=== PATIENT | male | born 1945 | race Caucasian/White ===

== ENCOUNTER 2022-03-09 09:40 | Outpatient (REF) | payer MEDICARE, SELFPAY ==
--- NOTE | ~2022-03-09 | XR_ITS ---
EXAMINATION: XR RIBS, LEFT CLINICAL INFORMATION: Pleurodynia. COMPARISON: None TECHNIQUE: 3 views of the left ribs were obtained. Chest one view FINDINGS: LUNGS: The lungs are well-expanded and clear of acute pneumonic process. There is platelike atelectasis left midlung. The heart size and pulmonary vascularity is normal. There is minimal blunting of the left CP angle. LEFT RIBS: Multiple views of left ribs reveal no visible fracture or bony abnormality. There is an old healed fracture with callus formation left lateral 10th rib. XR/XR ribs LT min 3V w CXR1V IMPRESSION: Platelike atelectasis left midlung with minimal blunting of left CP angle. There is an old healed fracture left lateral 10th rib. No visible acute fracture or bony abnormality seen.
== END 2022-03-09 09:41 | disposition home or self-care (01) ==
LOC: HO.HMGCX 09:40
PROVIDERS: PCP Internal Medicine; Visit Provider Nurse Practitioner Family
DX: R07.81 Pleurodynia (principal); W10.8XXA Fall (on) (from) other stairs and steps, initial encounter
CPT/HCPCS: 71101

== ENCOUNTER 2022-09-01 09:59 | Emergency (ER) | payer MEDICARE, SELFPAY ==
--- NOTE | ~2022-09-01 | CT_ITS ---
EXAMINATION: CT ANGIOGRAM OF THE CHEST WITH AND WITHOUT CONTRAST (CT PULMONARY ANGIOGRAM FOR PE) CLINICAL INFORMATION: Reason for Exam pt c leg swelling and off blood thinner's COMPARISON: Radiograph 03/09/2022 TECHNIQUE: Prior to contrast administration, noncontrast localization images were obtained. Subsequently, multidetector volumetric imaging was performed from the thoracic inlet to below the diaphragms following the administration of 65 mL Omnipaque 350 intravenous contrast. No contrast reaction reported Sagittal, coronal, and MIP oblique sagittal reformatted images were obtained on the CT workstation, uploaded to PACS, and reviewed. This CT examination was performed using dose optimization techniques as appropriate, variously including the following: *Automated exposure control *Adjustment of mA and/or kV according to patient size (this includes techniques or standardized protocols for targeted exams where dose is matched to indication/reason for exam; i.e. extremities or head) *Use of iterative reconstruction technique Total exam dose-length product 1441 mGy-cm in conjunction with head and cervical spine FINDINGS: QUALITY OF STUDY/CONTRAST BOLUS: Satisfactory. PULMONARY ARTERIES: No central or segmental pulmonary emboli. THORACIC AORTA: No aneurysm or dissection. Aortic valvular hardware. LUNG: The central airways are patent. Linear bandlike atelectasis in the left upper and lower lobes. No dense consolidation. PLEURA: No pleural effusion or pneumothorax. MEDIASTINUM: Enlarged heart size. Atrial appendage clip. Coronary artery calcifications. No pericardial effusion. No hilar or mediastinal lymphadenopathy. No evidence of septal bowing or right heart strain. CHEST WALL/AXILLA: No axillary or internal mammary lymphadenopathy. OSSEOUS STRUCTURES: No acute or suspicious osseous abnormality. Degenerative changes throughout the spine. Status post median sternotomy. UPPER ABDOMEN: Partially visualized simple cyst at the upper pole of the right kidney for which no specific follow-up is recommended. There is a cyst which appears somewhat exophytic from the right lobe of the liver posteriorly. This appears simple. No reflux of contrast into the hepatic veins to suggest elevated right heart pressures. CT/CT angio chest PE protocol IMPRESSION: No pulmonary embolism or other acute intrathoracic abnormality. VTE: negative
--- NOTE | ~2022-09-01 | US_ITS ---
EXAMINATION: US VENOUS ULTRASOUND WITH DOPPLER LOWER EXTREMITY, BILATERAL CLINICAL INFORMATION: Swelling COMPARISON: None TECHNIQUE: Ultrasound of the deep veins is performed from the hip to the calf with compression sonography and color and pulse Doppler assessment. Spectral analysis with color-flow imaging is performed. FINDINGS: RIGHT: There is normal venous compression and respiratory variation and augmented flow. The visualized common femoral vein, superficial femoral vein, profunda femoral vein, popliteal vein, and the trifurcation region shows no evidence of deep venous thrombosis. There is no significant popliteal fossa cyst. LEFT: There is echogenic material in the mid posterior tibial vein compatible with thrombosis. At and above the knee the popliteal vein, femoral vein are patent. US/US venous duplex LE BI IMPRESSION: Positive DVT. Occlusive thrombus found in the mid left posterior tibial vein. (Referring physician staff is being called, to be alerted of the above findings and recommendations.) DC
--- NOTE | ~2022-09-01 | CT_ITS ---
EXAMINATION: NONCONTRAST HEAD CT NONCONTRAST CERVICAL SPINE CT INDICATION INFORMATION: Fall COMPARISON: None TECHNIQUE: Separate noncontrast CT examinations of the head and cervical spine were performed. Coronal and sagittal images were created for each examination at the technologist workstation. This CT examination was performed using dose optimization techniques as appropriate, variously including the following: *Automated exposure control *Adjustment of mA and/or kV according to patient size (this includes techniques or standardized protocols for targeted exams where dose is matched to indication/reason for exam; i.e. extremities or head) *Use of iterative reconstruction technique DLP: 1441 mGy-cm, in conjunction with the chest CT. FINDINGS: Head: There is no evidence of acute intracranial hemorrhage or territorial infarction. No abnormal mass effect or midline shift is seen. Marcial to white matter differentiation is well preserved. No extra-axial fluid collections are identified. No hydrocephalus. Proportional prominence of the ventricles and sulcal spaces is consistent with mild volume loss. There is no abnormal attenuation within the brain parenchyma. No acute osseous or soft tissue abnormality. The mastoid air cells and visualized portions of the paranasal sinuses are well aerated. Cervical spine: Slight retrolisthesis of C3 on C4 and C4 on C5, appearing degenerative. There is anatomic alignment of the vertebral bodies and posterior elements. The atlantoaxial and atlantooccipital articulations are intact. Vertebral body heights are maintained. There is multilevel intervertebral disc space narrowing with endplate osteophyte formation and facet arthropathy. No evidence of acute fracture. No prevertebral soft tissue swelling. Visualized portions of the lung apices are unremarkable. The thyroid gland is unremarkable. CT/CT cervical spine wo IV con IMPRESSION: 1. No acute intracranial finding. 2. No fracture or malalignment of the cervical spine. Moderate degenerative changes.
[2022-09-01 10:00] VITALS: BP 158/83; PULSE 94; RESP 18; TEMP 36.9; O2SAT 94; BMI 25.0
--- NOTE | 2022-09-01 10:19 | ECG_ITS ---
Test Reason : leg swelling Blood Pressure : / mmHG Vent. Rate : 075 BPM Atrial Rate : 000 BPM P-R Int : 000 ms QRS Dur : 088 ms QT Int : 368 ms P-R-T Axes : 000 -20 051 degrees QTc Int : 410 ms Atrial fibrillation Left axis deviation Abnormal ECG No previous ECGs available Referred By: Beatris Tate Electronically Signed By:AMANDA CRUZ MD
--- NOTE | 2022-09-01 10:47 | ED.SKABFB ---
HPI - Skin/Abscess/Foreign Bdy General Chief complaint: Skin/Abscess/Foreign Body Stated complaint: fall 08/31/22 cut on R leg Time Seen by Provider: 09/01/22 10:11 Source: patient Mode of arrival: ambulatory Limitations: other (Poor historian) History of Present Illness HPI narrative: Pt is a 77 year old male with a past medical history of afib s/p watchman procedure, CAD s/p CABG, s/p prosthetic AVR, HTN, HLD, and TIA who presents to the ED for evaluation of skin tears s/p fall. He states that last night around 1800 he was walking near his front door, tripped over the door draft guard, and hit his right elbow and leg on the door frame causing skin tears. He denies any head strike, LOC, or symptoms prior to the fall. He put gauzes on the tears when the initial injury occurred. According to the triage note, he went to urgent care this morning for his injuries and was referred here for possible debridement. He denies any BARRETT, pre-syncope/syncope, dizziness, CP, SOB, abdominal pain, N/V/D, urinary symptoms, calf pain, recent travel, recent illness. He states he was previously on blood thinners however states he has been off of them for the last 2 weeks. Pt is a poor historian, he has difficulty recalling what his previous cardiac history entailed and was not forthcoming about his trip to urgent care this morning or the extent of his injuries. complaint: other (skin tear) Onset (ago): day(s) (1) Tetanus up to date: yes Location: RUE and RLE Relieving factors: none Exacerbating factors: none Context: none Associated symptoms: denies other symptoms Treatments prior to arrival: bandages Related Data Home Medications Medication Instructions Recorded Confirmed allopurinol 100 mg tablet 200 mg PO DAILY 03/09/22 furosemide 20 mg tablet 20 mg PO BID 03/09/22 metoprolol tartrate 25 mg tablet 25 mg PO BID 03/09/22 tamsulosin 0.4 mg capsule 0.4 mg PO DAILY 03/09/22 Previous Rx's Medication Instructions Recorded apixaban 5 mg tablet (Eliquis) 5 mg PO BID #90 tabs 09/01/22 cephalexin 500 mg capsule 500 mg PO Q6H 10 days #40 caps 09/01/22 doxycycline monohydrate 100 mg 100 mg PO BID 10 days #20 tabs 09/01/22 tablet Allergies Allergy/AdvReac Type Severity Reaction Status Date / Time No Known Allergies Allergy Unverified 09/01/22 08:57 Review of Systems Review of Systems: Constitutional : + fall. Denies history of same, Denies any other sites involved, Denies IV drug use, Denies history of MRSA, Denies swollen glands, Denies injury, Denies Fever, Denies Chills, Denies Systemic symptoms Cardiovascular : No Chest Pain, No SOB Respiratory : No Dyspnea Gastrointestinal : No abdominal pain Musculoskeletal : No Joint Swelling Skin : + skin tear, No Foreign bodies, No spreading rash, Denies bites, Denies discharge, Neuro : No Weakness, No Numbness/tingling Psych : No SI/HI/thoughts of self injury Yes all other systems are reviewed and are negative [facility] Past Medical History Attestation statement: The following information was validated with the patient. Source: old records reviewed, obtained from family and nursing notes reviewed Social History Social History Advance Directives: No Advance Directives Information Provided: No Physical Exam Vital Signs: Vital Signs: Last Vital Signs Temp 98.5 F 09/01/22 10:00 Pulse 94 09/01/22 10:00 Resp 18 09/01/22 10:00 BP 158/83 H 09/01/22 10:00 Pulse Ox 94 09/01/22 10:00 O2 Del Method 09/01/22 10:00 BMI result Body Mass Index 25.0 vital signs have been reviewed as normal and appeared to be correct. Blood pressure normal. Heart rate normal. Respiration rate normal. Temperature normal. Oxygen saturation normal. Appearance: Alert. Oriented X3. No acute distress. Head: Normal external exam. Normocephalic. Atraumatic. No Loaiza signs noted. No raccoon eyes noted. Eyes: PERRLA. EOMI. Conjunctiva and sclera normal. Eyelids normal. ENT: Hearing normal. Normal voice. No trismus noted. No drooling noted. No muffled voice noted. Neck: Normal inspection. Neck supple. No signs of trauma noted. CVS: Afib rhythm, normal rate. Presence of a systolic murmur. No rubs/gallops. Respiratory: No respiratory distress. Painless inspiration. Breath sounds normal. No wheezes/rales/rhonchi noted. Chest nontender. No crepitus is noted. No accessory muscle usage noted or decreased air movement noted. No signs of trauma. Abdomen: Soft and nontender. Nondistended. No guarding. No rigidity. Bowel sounds normal in all 4 quadrants. No distention noted. No visible injury noted. Back: Full range of motion noted. Skin: A 15cm skin tear noted on the anterior aspect of the distal RLE with surrounding erythema and ecchymosis, non-draining. Skin tear overlying the posterior elbow joint without drainage, bleeding, or erythema. Skin warm and dry. Normal skin color. Extremities: 2+ bilateral pitting edema noted. R calf tender to palpation. L calf nontender. Extremities exhibit normal range of motion and nontender. Neuro: Oriented X 3. Normal steady gait. No focal neuro deficits noted. Vascular: +2 radial pulses/+ 2 distal pedal pulses/+2 dorsalis pedis b/l. Course Course Course Narrative: 10:20am - Pt is a 77 year old male with a past medical history of afib s/p watchman procedure, CAD s/p CABG, s/p prosthetic AVR, HTN, HLD, and TIA who presents to the ED for evaluation of skin tears s/p fall. He states that last night around 1800 he was walking near his front door, tripped over the door draft guard, and hit his right elbow and leg on the door frame causing skin tears. He denies any head strike, LOC, or symptoms prior to the fall. Pt is a poor historian regarding his past medical hx and his symptoms/prior treatment to his skin tears. VSS. A 15cm skin tear noted on the anterior aspect of the distal RLE with surrounding erythema and ecchymosis, non-draining. Skin tear overlying the posterior elbow joint without drainage, bleeding, or erythema. Upon palpating the right calf/LE, the patient expressed that he had pain and nearly jumped off the exam table. The left calf is nontender. Pitting edema noted bilaterally, pt states this is normal for him and he is working on it. Pt in Afib, normal rate with the presence of a systolic murmur. Lungs clear. 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 Reports from [facility] Cardiology were obtained and his PMHx has been filled into the HPI. Per the reports, he has had a CABG, bioprosthetic AVR, watchman procedure and has been off of his Coumadin since 04/2022. Last ECHO 05/14/2022. He is also on torsemide which has recently been decreased to 60mg QD. Plan: -Clean skin tears and wrap with Xeroform and nonadherent dressing. -Exam and PMHx concerning for DVT, will order U/S of bilateral lower extremities. Will order CTA if U/S is positive. -Order CBC, CMP, BNP, PT/INR, Mg, troponin, CK, EKG, CT of head/neck for full fall workup and will reassess plan. Reevaluation(s) Reevaluation #1: -CBC shows anemia with H/H of 11.5/35.5, plts 148, otherwise WNL. -CMP shows CO2 of 31, BUN of 21, otherwise WNL. -BNP mildly elevated at 242. -PT/INR 12.7/1.1. - troponin 14.6 -EKG shows afib at 75 bpm. -U/S positive for DVT, Occlusive thrombus found in the mid left posterior tibial vein. Added CTA of chest to r/o PE. -Imaging, troponin, CK pending. Added blood cx x2, lactic acid. Time: 12:17 Reevaluation #2: - CTA of chest negative for PE. - CT scan of brain/cervical spine negative for any acute processes noted - repeat troponin negative delta. - blood cultures and lactic acid were added. - pending wound consult. Time: 14:28 Reevaluation #3: - lactic acid within normal limits. - I spoke to Dr. Delgado and she recommended Xeroform with not adherent dressing and gentle compression with Gabino wrap. He will follow-up with him as an outpatient basis. - I also consulted with Cardiology and they reported the patient could be started on p.o. blood thinners for his DVT to his left lower extremity therefore will start on Eliquis. - therefore at this time will DC home with antibiotics for possible cellulitis infection to the skin tear to his right lower extremity. He also has a skin tear to the right elbow. Will DC home with Eliquis. Instructions to continue taking metoprolol as patient's atrial fibrillation is rate controlled at this time and instructions to follow-up with wound clinic/PCP and Cardiology along with vascular surgery patient understands. at bedside understands. And to return if any new or worsening symptoms. Time: 15:43 Medications Administered Discontinued Medications Generic Name Dose Route Start Last Admin Trade Name Estevanq PRN Reason Stop Dose Admin Apixaban 10 mg 09/01/22 14:24 09/01/22 15:34 Apixaban 5 Mg Tablet PO 09/01/22 14:25 10 mg ONCE ONE Administration Cephalexin HCl 500 mg 09/01/22 15:09 09/01/22 15:35 Cephalexin 500 Mg Capsule PO 09/01/22 15:10 500 mg ONCE ONE Administration Doxycycline Monohydrate 100 mg 09/01/22 15:09 09/01/22 15:35 Doxycycline Monohydrate 100 Mg Capsule PO 09/01/22 15:10 100 mg ONCE ONE Administration Iohexol 100 ml 09/01/22 11:40 09/01/22 11:40 Iohexol 350 Mg/Ml 100 Ml Infus..Btl IV 09/01/22 11:41 65 ml ONCE ONE Administration MDM - Skin/Abscess/Foreign Bdy Medical Records Attestation: I reviewed the patient's medical records. Lab Data Attestation: I reviewed the patient's lab results. Result diagrams: 09/01/22 10:46 09/01/22 10:46 Labs: Lab Results 09/01/22 09/01/22 09/01/22 Range/Units 10:46 10:46 10:46 WBC 5.4 (4.8-10.8) X10*3/uL RBC 3.69 L (4.60-5.80) X10*6/uL Hgb 11.5 L (14.0-18.0) g/dl Hct 35.3 L (42.0-52.0) % MCV 95.7 (80.0-98.0) fL MCH 31.2 (27.0-33.0) pg MCHC 32.6 (31.0-36.0) g/dl RDW 16.3 H (11.0-16.0) % Plt Count 148 L (160-400) X10*3/uL MPV 10.9 (9.4-12.4) fL Immature Gran % (Auto) 0.4 (0.0-0.4) % Neut % (Auto) 66.6 (45-73) % Lymph % (Auto) 20.9 (20-40) % [place] % (Auto) 10.3 (2-11) % Eos % (Auto) 1.1 (0-4) % Baso % (Auto) 0.7 (0-2) % Lymph # (Auto) 1.1 L (1.2-4.9) X10*3/uL [place] # (Auto) 0.6 (0.1-1.2) X10*3/uL Eos # (Auto) 0.1 (0.0-0.4) X10*3/uL Baso # (Auto) 0.0 (0.0-0.2) X10*3/uL Abs Immat Gran (auto) 0.02 (0.00-0.03) X10*3/uL Absolute Neuts (auto) 3.6 (2.0-8.3) x10*3/uL Absolute Nucleated RBC 0.000 (0.0-0.012) X10*3/uL Nucleated RBC % (auto) 0.0 (0.0-0.2) /100WBC PT 12.7 (10.0-13.1) SEC INR 1.1 (0.9-1.1) Sodium 142 (135-145) mmol/L Potassium 4.1 (3.3-5.1) mmol/L Chloride 102 (96-108) mmol/L Carbon Dioxide 31 H (22-29) mmol/L Anion Gap 13 (12-20) BUN 21 H (9-16) mg/dL Creatinine 1.01 (0.5-1.4) mg/dL Estim Creat Clear Calc 58.1 Estimated GFR > 60 Random Glucose 95 (60-115) mg/dL Lactic Acid (0.5-2.0) mmol/L Calcium 9.5 (8.4-10.2) mg/dL Magnesium 2.2 (1.6-2.6) mg/dL Total Bilirubin 0.6 (0.0-1.0) mg/dL AST 22 (5-37) U/L ALT 12 (0-40) U/L Alkaline Phosphatase 82 (39-117) U/L Total Creatine Kinase 66 (38-174) U/L Troponin I High Sens (<3.5-35.0) ng/L B-Natriuretic Peptide (<100) pg/mL Total Protein 6.9 (6.5-8.0) g/dL Albumin 4.1 (3.5-5.0) g/dL COVID-19 (JOHN) (Negative) COVID-19 Clin Com 09/01/22 09/01/22 09/01/22 Range/Units 10:46 10:46 12:34 WBC (4.8-10.8) X10*3/uL RBC (4.60-5.80) X10*6/uL Hgb (14.0-18.0) g/dl Hct (42.0-52.0) % MCV (80.0-98.0) fL MCH (27.0-33.0) pg MCHC (31.0-36.0) g/dl RDW (11.0-16.0) % Plt Count (160-400) X10*3/uL MPV (9.4-12.4) fL Immature Gran % (Auto) (0.0-0.4) % Neut % (Auto) (45-73) % Lymph % (Auto) (20-40) % [place] % (Auto) (2-11) % Eos % (Auto) (0-4) % Baso % (Auto) (0-2) % Lymph # (Auto) (1.2-4.9) X10*3/uL [place] # (Auto) (0.1-1.2) X10*3/uL Eos # (Auto) (0.0-0.4) X10*3/uL Baso # (Auto) (0.0-0.2) X10*3/uL Abs Immat Gran (auto) (0.00-0.03) X10*3/uL Absolute Neuts (auto) (2.0-8.3) x10*3/uL Absolute Nucleated RBC (0.0-0.012) X10*3/uL Nucleated RBC % (auto) (0.0-0.2) /100WBC PT (10.0-13.1) SEC INR (0.9-1.1) Sodium (135-145) mmol/L Potassium (3.3-5.1) mmol/L Chloride (96-108) mmol/L Carbon Dioxide (22-29) mmol/L Anion Gap (12-20) BUN (9-16) mg/dL Creatinine (0.5-1.4) mg/dL Estim Creat Clear Calc Estimated GFR Random Glucose (60-115) mg/dL Lactic Acid 0.8 (0.5-2.0) mmol/L Calcium (8.4-10.2) mg/dL Magnesium (1.6-2.6) mg/dL Total Bilirubin (0.0-1.0) mg/dL AST (5-37) U/L ALT (0-40) U/L Alkaline Phosphatase (39-117) U/L Total Creatine Kinase (38-174) U/L Troponin I High Sens 14.6 (<3.5-35.0) ng/L B-Natriuretic Peptide 242 H (<100) pg/mL Total Protein (6.5-8.0) g/dL Albumin (3.5-5.0) g/dL COVID-19 (JOHN) (Negative) COVID-19 Clin Com 09/01/22 09/01/22 Range/Units 12:34 13:48 WBC (4.8-10.8) X10*3/uL RBC (4.60-5.80) X10*6/uL Hgb (14.0-18.0) g/dl Hct (42.0-52.0) % MCV (80.0-98.0) fL MCH (27.0-33.0) pg MCHC (31.0-36.0) g/dl RDW (11.0-16.0) % Plt Count (160-400) X10*3/uL MPV (9.4-12.4) fL Immature Gran % (Auto) (0.0-0.4) % Neut % (Auto) (45-73) % Lymph % (Auto) (20-40) % [place] % (Auto) (2-11) % Eos % (Auto) (0-4) % Baso % (Auto) (0-2) % Lymph # (Auto) (1.2-4.9) X10*3/uL [place] # (Auto) (0.1-1.2) X10*3/uL Eos # (Auto) (0.0-0.4) X10*3/uL Baso # (Auto) (0.0-0.2) X10*3/uL Abs Immat Gran (auto) (0.00-0.03) X10*3/uL Absolute Neuts (auto) (2.0-8.3) x10*3/uL Absolute Nucleated RBC (0.0-0.012) X10*3/uL Nucleated RBC % (auto) (0.0-0.2) /100WBC PT (10.0-13.1) SEC INR (0.9-1.1) Sodium (135-145) mmol/L Potassium (3.3-5.1) mmol/L Chloride (96-108) mmol/L Carbon Dioxide (22-29) mmol/L Anion Gap (12-20) BUN (9-16) mg/dL Creatinine (0.5-1.4) mg/dL Estim Creat Clear Calc Estimated GFR Random Glucose (60-115) mg/dL Lactic Acid (0.5-2.0) mmol/L Calcium (8.4-10.2) mg/dL Magnesium (1.6-2.6) mg/dL Total Bilirubin (0.0-1.0) mg/dL AST (5-37) U/L ALT (0-40) U/L Alkaline Phosphatase (39-117) U/L Total Creatine Kinase (38-174) U/L Troponin I High Sens 14.6 (<3.5-35.0) ng/L B-Natriuretic Peptide (<100) pg/mL Total Protein (6.5-8.0) g/dL Albumin (3.5-5.0) g/dL COVID-19 (JOHN) Negative (Negative) COVID-19 Clin Com See Note Imaging Data CT scan of brain/cervical spine without contrast: Attestation: I personally reviewed and interpreted this imaging study as follows: Radiologist's impression: FINDINGS: Head: There is no evidence of acute intracranial hemorrhage or territorial infarction. No abnormal mass effect or midline shift is seen. Marcial to white matter differentiation is well preserved. No extra-axial fluid collections are identified. No hydrocephalus. Proportional prominence of the ventricles and sulcal spaces is consistent with mild volume loss. There is no abnormal attenuation within the brain parenchyma. No acute osseous or soft tissue abnormality. The mastoid air cells and visualized portions of the paranasal sinuses are well aerated. Cervical spine: Slight retrolisthesis of C3 on C4 and C4 on C5, appearing degenerative. There is anatomic alignment of the vertebral bodies and posterior elements. The atlantoaxial and atlantooccipital articulations are intact. Vertebral body heights are maintained. There is multilevel intervertebral disc space narrowing with endplate osteophyte formation and facet arthropathy. No evidence of acute fracture. No prevertebral soft tissue swelling. Visualized portions of the lung apices are unremarkable. The thyroid gland is unremarkable. CT/CT head/brain wo IV con IMPRESSION: 1.? No acute intracranial finding. 2.? No fracture or malalignment of the cervical spine. Moderate degenerative changes. CTa of chest for PE: Attestation: I personally reviewed and interpreted this imaging study as follows: Radiologist's impression: FINDINGS: QUALITY OF STUDY/CONTRAST BOLUS: Satisfactory. PULMONARY ARTERIES: No central or segmental pulmonary emboli.? THORACIC AORTA: No aneurysm or dissection. Aortic valvular hardware. LUNG: The central airways are patent. Linear bandlike atelectasis in the left upper and lower lobes. No dense consolidation. PLEURA: No pleural effusion or pneumothorax. MEDIASTINUM: Enlarged heart size. Atrial appendage clip. Coronary artery calcifications. No pericardial effusion.? No hilar or mediastinal lymphadenopathy.? No evidence of septal bowing or right heart strain. CHEST WALL/AXILLA: No axillary or internal mammary lymphadenopathy. OSSEOUS STRUCTURES: No acute or suspicious osseous abnormality. Degenerative changes throughout the spine. Status post median sternotomy. UPPER ABDOMEN: Partially visualized simple cyst at the upper pole of the right kidney for which no specific follow-up is recommended. There is a cyst which appears somewhat exophytic from the right lobe of the liver posteriorly. This appears simple.? No reflux of contrast into the hepatic veins to suggest elevated right heart pressures. CT/CT angio chest PE protocol IMPRESSION: No pulmonary embolism or other acute intrathoracic abnormality. ? ? VTE: negative Venous duplex ultrasound of bilateral lower extremity: Attestation: I personally reviewed and interpreted this imaging study as follows: Radiologist's impression: FINDINGS: RIGHT: There is normal venous compression and respiratory variation and augmented flow. The visualized common femoral vein, superficial femoral vein, profunda femoral vein, popliteal vein, and the trifurcation region shows no evidence of deep venous thrombosis. ? There is no significant popliteal fossa cyst. LEFT: There is echogenic material in the mid posterior tibial vein compatible with thrombosis. At and above the knee the popliteal vein, femoral vein are patent. US/US venous duplex LE BI IMPRESSION: Positive DVT. ? Occlusive thrombus found in the mid left posterior tibial vein. ? (Referring physician staff is being called, to be alerted of the above findings and recommendations.) DC ECG Data Attestation: I personally reviewed and interpreted this ECG as follows: ECG interpretation date: 09/01/22 ECG interpretation time: 10:20 Interpretation: Atrial fibrillation with a ventricular rate of 75 no acute ischemic change are noted. Critical Care Time Critical Care Time Critical Care Time: Yes Total Critical Care Time: 60 Attestation: I personally attest to this time spent taking care of the patient Discharge Plan Discharge Clinical Impression: Skin tear, Acute deep vein thrombosis (DVT) of left lower extremity, Atrial fibrillation Patient Disposition: Home, Self-Care Instructions: A-fib (Atrial Fibrillation) (ED), Deep Vein Thrombosis (ED), Laceration Without Closure (ED), Blood Thinners (ED) Prescriptions: New doxycycline monohydrate 100 mg tablet 100 mg PO BID 10 Days Qty: 20 0RF cephalexin 500 mg capsule 500 mg PO Q6H 10 Days Qty: 40 0RF Eliquis 5 mg tablet 5 mg PO BID Qty: 90 0RF Rx Instructions: Patient should take 10 mg p.o. b.i.d. x7 days for DVT then 5 mg b.i.d. until instructed by carpet layer helper No Action allopurinol 100 mg tablet 200 mg PO DAILY furosemide 20 mg tablet 20 mg PO BID tamsulosin 0.4 mg capsule 0.4 mg PO DAILY metoprolol tartrate 25 mg tablet 25 mg PO BID Referrals: Rocco Vicente III, MD [Primary Care Provider] - 1 day Keenan Roe MD [Physician] - 1 day Sujey Angel PA [Physician Sr. Director] - 1 day
[2022-09-01 10:52] LABS: MANUAL DIFF FLAG NO
[2022-09-01 10:54] LABS: Basophils Percent Auto 0.7 % (0-2); Eosinophils Absolute Auto 0.1 X10*3/uL (0.0-0.4); Eosinophils Percent Auto 1.1 % (0-4); Hematocrit 35.3 % (42.0-52.0); Hemoglobin 11.5 g/dl (14.0-18.0); Imm Gran Abs Auto 0.02 X10*3/uL (0.00-0.03); Imm Gran Pct Auto 0.4 % (0.0-0.4); Lymphocytes Absolute Auto 1.1 X10*3/uL (1.2-4.9); Lymphocytes Percent Auto 20.9 % (20-40); Mean Corpuscular HGB Conc 32.6 g/dl (31.0-36.0); Mean Corpuscular Hemoglobin 31.2 pg (27.0-33.0); Mean Corpuscular Volume 95.7 fL (80.0-98.0); Mean Platelet Volume 10.9 fL (9.4-12.4); Monocytes Absolute Auto 0.6 X10*3/uL (0.1-1.2); Monocytes Percent Auto 10.3 % (2-11); Neutrophils Absolute Auto 3.6 x10*3/uL (2.0-8.3); Neutrophils Percent Auto 66.6 % (45-73); Platelet Count 148 X10*3/uL (160-400); Red Blood Count 3.69 X10*6/uL (4.60-5.80); Red Cell Distribution Width 16.3 % (11.0-16.0); White Blood Count 5.4 X10*3/uL (4.8-10.8)
[2022-09-01 10:59] LABS: INTERNATIONAL NORM RATIO 1.1 (0.9-1.1); Prothrombin Time 12.7 SEC (10.0-13.1)
[2022-09-01 11:14] LABS: Alanine Aminotransferase 12 U/L (0-40); Albumin Level 4.1 g/dL (3.5-5.0); Alkaline Phosphatase 82 U/L (39-117); Anion Gap 13 (12-20); Aspartate Amino Transferase 22 U/L (5-37); Bilirubin Total 0.6 mg/dL (0.0-1.0); Blood Urea Nitrogen 21 mg/dL (9-16); Calcium 9.5 mg/dL (8.4-10.2); Carbon Dioxide 31 mmol/L (22-29); Chloride 102 mmol/L (96-108); Creatinine Clr Calc Pharmacy 58.1; Estimated Glomerular Filt Rate > 60; Glucose Random 95 mg/dL (60-115); Magnesium 2.2 mg/dL (1.6-2.6); Potassium 4.1 mmol/L (3.3-5.1); Sodium 142 mmol/L (135-145); Total Protein 6.9 g/dL (6.5-8.0)
[2022-09-01 11:21] LABS: B Type Natriuretic Peptide 242 pg/mL (<100)
[2022-09-01] MEDS: iohexoL 350 MG/ML 100 ML INFUS..BTL IV (11:40)
[2022-09-01 12:34] LABS: Troponin-I High Sensitivity 14.6 ng/L (<3.5-35.0)
[2022-09-01 13:05] LABS: COVID-19 Test Negative (Negative); IDNOW Serial# 16C4AD1C
[2022-09-01 13:06] LABS: Lactic Acid 0.8 mmol/L (0.5-2.0)
[2022-09-01 14:29] LABS: Troponin-I High Sensitivity 14.6 ng/L (<3.5-35.0)
[2022-09-01] MEDS: Apixaban 5 MG TABLET 10 MG PO (15:34)
[2022-09-01] MEDS: Doxycycline Monohydrate 100 MG CAPSULE PO (15:35)
[2022-09-01] MEDS: cephALEXin 500 MG CAPSULE PO (15:35)
== END 2022-09-01 16:05 | disposition home or self-care (01) ==
PROVIDERS: Physician Assistant Medical; Emergency Provider Emergency Medicine Emergency Medical Services; PCP Internal Medicine
DX: I82.442 Acute embolism and thrombosis of left tibial vein (principal); S81.811A Laceration without foreign body, right lower leg, initial encounter; W22.09XA Striking against other stationary object, initial encounter; M79.661 Pain in right lower leg; R60.0 Localized edema; I48.91 Unspecified atrial fibrillation; Y93.89 Activity, other specified; Y92.018 Other place in single-family (private) house as the place of occurrence of the external cause; Y99.9 Unspecified external cause status; Z20.822 Contact with and (suspected) exposure to COVID-19
CPT/HCPCS: 36415; 70450; 71275; 72125; 80053; 82550; 83605; 83735; 83880; 84484; 85025; 85610; 87040; 87635; 93005; 93970; 99284; Q9967

== ENCOUNTER 2022-09-06 12:39 | Outpatient (RCR) | payer MEDICARE, SELFPAY | END 2022-11-16 13:57 | disposition home or self-care (01) | LOC: HO.WCC 12:39 | PROVIDERS: PCP Internal Medicine; Visit Provider Physician Assistant | DX: I87.331 Chronic venous hypertension (idiopathic) with ulcer and inflammation of right lower extremity (principal); L97.812 Non-pressure chronic ulcer of other part of right lower leg with fat layer exposed; I48.91 Unspecified atrial fibrillation; Z79.01 Long term (current) use of anticoagulants; Z95.1 Presence of aortocoronary bypass graft; Z86.718 Personal history of other venous thrombosis and embolism; Z86.73 Personal history of transient ischemic attack (TIA), and cerebral infarction without residual deficits | CPT/HCPCS: 11042; 11045; 15271; 17250; 99212; Q4101; Q4160 ==

== ENCOUNTER 2023-01-27 08:09 | Outpatient (RCR) | payer MEDICARE, SELFPAY | END 2023-02-11 13:47 | disposition home or self-care (01) | LOC: HO.WCC 08:09 | PROVIDERS: PCP Internal Medicine; Visit Provider Surgery | DX: S51.812A Laceration without foreign body of left forearm, initial encounter (principal); S51.811A Laceration without foreign body of right forearm, initial encounter; I48.91 Unspecified atrial fibrillation; I10 Essential (primary) hypertension; Z95.1 Presence of aortocoronary bypass graft; Z86.718 Personal history of other venous thrombosis and embolism; Z79.01 Long term (current) use of anticoagulants; Z86.73 Personal history of transient ischemic attack (TIA), and cerebral infarction without residual deficits; Z79.891 Long term (current) use of opiate analgesic; Z79.899 Other long term (current) drug therapy | CPT/HCPCS: 97597; 99212 ==

== ENCOUNTER 2023-04-18 12:21 | Outpatient (REF) | payer MEDICARE, SELFPAY | END 2023-04-18 12:22 | disposition home or self-care (01) | LOC: HO.HMGCX 12:21 | PROVIDERS: PCP Internal Medicine; Visit Provider Internal Medicine | DX: M25.532 Pain in left wrist (principal) | CPT/HCPCS: 73130 ==

== ENCOUNTER 2023-07-20 07:25 | Emergency (ER) | payer MEDICARE, SELFPAY ==
--- NOTE | ~2023-07-20 | CT_ITS ---
EXAMINATION: CT CERVICAL SPINE WITHOUT CONTRAST CLINICAL INFORMATION: Mechanical fall, on anticoagulants COMPARISON: 09/01/2022 TECHNIQUE: Axial imaging with coronal and sagittal reformatted images. This CT examination was performed using dose optimization techniques as appropriate, variously including the following: *Automated exposure control *Adjustment of mA and/or kV according to patient size (this includes techniques or standardized protocols for targeted exams where dose is matched to indication/reason for exam; i.e. extremities or head) *Use of iterative reconstruction technique DLP: 307 mGy-cm FINDINGS: Degenerative changes. No acute fracture or dislocation. CT/CT cervical spine wo IV con IMPRESSION: Degenerative changes. No acute fracture or dislocation in the cervical spine. Fleischner guidelines were followed.
--- NOTE | ~2023-07-20 | CT_ITS ---
EXAMINATION: CT HEAD WITHOUT CONTRAST CLINICAL INFORMATION: Mechanical fall on anticoagulant COMPARISON: 09/01/2022 TECHNIQUE: Contiguous axial imaging was performed from the skull base to vertex without intravenous administration of contrast. This CT examination was performed using dose optimization techniques as appropriate, variously including the following: *Automated exposure control *Adjustment of mA and/or kV according to patient size (this includes techniques or standardized protocols for targeted exams where dose is matched to indication/reason for exam; i.e. extremities or head) *Use of iterative reconstruction technique DLP: 742 mGy-cm FINDINGS: Mild involutional changes noted. No intra or extra-axial fluid collection or hemorrhage, mass, or mass effect. Calvarium is intact. CT/CT head/brain wo IV con IMPRESSION: No acute intracranial pathology.
--- NOTE | 2023-07-20 07:39 | ED.GENADULT ---
HPI - General Adult General Chief complaint: Fall Stated complaint: cut arm and leg Time Seen by Provider: 07/20/23 07:39 Source: patient Mode of arrival: ambulatory Limitations: no limitations History of Present Illness HPI narrative: Patient is a 78 year old assigned male at with a history of atrial fib currently on Eliquis presenting to the emergency department today with right arm and leg skin tears. Patient states that he was working on something outside when he tripped and fell, landing on his right side, causing a skin tear to his right arm and right knee. Patient denies any head strike or loss of consciousness. Patient denies any dizziness, lightheadedness, abdominal pain, nausea, vomiting, fever, chills, blurry vision, double vision, loss of vision, chest pain, difficulty breathing, shortness of breath, back pain, night sweats, pain with urination, increased urinary frequency, increased urinary urgency, blood in his urine or stool, syncope or a near syncopal episode, bowel incontinence, bladder incontinence, bowel retention, bladder retention, or any other complaints at this time. Patient states something similar happened last year for which he had to follow with wound care. Onset (ago): minute(s) Location: right, upper extremity and lower extremity Severity: mild Severity scale (1-10): 3 Quality: aching Relieving factors: none Exacerbating factors: none Associated symptoms: denies other symptoms Treatments prior to arrival: none Related Data Home Medications Medication Instructions Recorded Confirmed allopurinol 100 mg tablet 200 mg PO DAILY 03/09/22 metoprolol tartrate 25 mg tablet 25 mg PO BID 03/09/22 04/18/23 tamsulosin 0.4 mg capsule 0.4 mg PO DAILY 03/09/22 04/18/23 furosemide 20 mg tablet 60 mg PO BID 04/18/23 04/18/23 Previous Rx's Medication Instructions Recorded apixaban 5 mg tablet (Eliquis) 5 mg PO BID #90 tabs 09/01/22 prednisone 20 mg tablet 60 mg (3 x 20 mg) PO DAILY #9 tabs 04/18/23 cephalexin 500 mg capsule 500 mg PO Q6H 7 days #28 caps 07/20/23 Allergies Allergy/AdvReac Type Severity Reaction Status Date / Time No Known Allergies Allergy Unverified 04/18/23 12:22 Review of Systems Review of Systems: Yes all other systems are reviewed and are negative Constitutional: Constitutional: Reports no additional constitutional complaints, Denies chills, Denies fever(s) and Denies night sweats Eyes: Eyes: Reports no additional eye complaints, Denies blurry vision, Denies change in vision, Denies diplopia, Denies eye discharge, Denies loss of vision and Denies eye pain ENT: Denies dizziness Cardiovascular: Cardiovascular: Reports no additional cardiovascular complaints, Denies chest pain, Denies lightheadedness, Denies Loss of Consciousness and Denies dyspnea Respiratory: Respiratory: Reports no additional respiratory complaints and Denies dyspnea Gastrointestinal: Gastrointestinal: Reports no additional gastrointestinal complaints, Denies abdominal pain, Denies melena, Denies hematochezia, Denies change in bowel habits and Denies change in stool character Genitourinary: Genitourinary: Reports no additional male genitourinary complaints, Denies hematuria, Denies oliguria, Denies difficulty urinating, Denies dysuria, Denies urinary frequency, Denies urinary hesitancy, Denies urinary incontinence and Denies urinary urgency Musculoskeletal: Musculoskeletal: Reports no additional musculoskeletal complaints, Denies numbness and Denies tingling Comments: large abrasions of the right forearm and right lower leg. No joint pain. No trouble ambulating. Neurologic: Denies dizziness, Denies loss of vision, Denies numbness and Denies tingling Psychiatric: Psychiatric: Reports no additional psychiatric complaints Endocrine: Endocrine: Reports no additional endocrine complaints Hematologic/Lymphatic: Hematologic/Lymphatic: Reports no additional hematologic/lymphatic complaints Allergic/Immunologic: Allergic/Immunologic: Reports no additional allergic/immunologic complaints PMFSH Past Medical History Attestation statement: The following information was validated with the patient. Source: old records reviewed and nursing notes reviewed Social History Social History Patient Tobacco Use Status: Former Tobacco user Physical Exam ED Vital Signs: Vital Signs - 24 hr 07/20/23 08:05 Temperature 98.1 F Pulse Rate 64 Respiratory Rate 16 Blood Pressure 156/72 H Pulse Oximetry 94 Oxygen Delivery Method Room Air BMI result Body Mass Index 29.0 Const General: cooperative, no acute distress, alert and awake Nutritional Appearance: well nourished Orientation/consciousness: patient oriented x3 Limitations: no limitations HENMT Head: Yes normal to inspection and Yes atraumatic Ears: hearing grossly normal bilaterally and external ears normal General nose exam: Normal external nose present, no nasal discharge noted and no epistaxis Face and sinus: Yes normal facial exam, No abrasion and No laceration Mouth: Normal oral and palatal mucosa present, no drooling and no muffled voice Eyes General: appearance normal, both eyes and all related structures Periorbital: periorbital findings normal Eyelids: Yes eyelids normal Conjunctivae: conjunctivae normal Pupils: Equal, round and reactive pupils present EOM: EOMs intact bilaterally Neck Neck: Yes normal visual inspection, Yes full ROM and Yes no lymphadenopathy Chest Chest palpation & inspection: normal inspection of the chest Resp Effort & Inspection: normal respiratory effort and able to speak in complete sentences GI Inspection: Yes normal to inspection Skin Other: 15cm x 7cm right lateral forearm skin tear, not actively bleeding, small skin tears on the upper/lateral right lower leg, not actively bleeding. Neuro General: patient oriented x3 and moves all extremities Cranial nerves: Yes Equal, round and reactive pupils present Cognition (Neuro): normal cognition Motor exam (neuro): 5/5 motor strength present throughout Sensory Exam: Normal double simultaneous stimulation for sensation Coordination: [id number] test normal Extrem General: Yes full ROM and Yes capillary refill normal Psych Appearance: grossly normal Mental Status: mental status grossly normal Affect: normal affect Attitude: cooperative Thought process: Normal thought process present Thought content: Normal thought content present Insight: Good insight present (Psych) Medical Decision Making Medical Decision Making MDM Narrative: Patient is a 78 year old assigned male at with a history of atrial fib on eliquis presenting to the emergency department today with skin tears to the right upper extremity and right lower extremity. Patient's physical exam was as noted in the physical exam portion of this note. Patient's head and c-spine CTs showed no acute process. I explained my physical exam findings as well as all test results to the patient and the patient's . I answered all questions asked by the patient and the patient's . Patient's right forearm wound was cleaned and dressed with non adherent and a pressure dressing. Patient's right lower extremity skin tear was repaired with steri strips and dressed with non adherent dressing. I stressed the importance of the patient taking his medication as prescribed. I stressed the importance of the patient following up with his primary care provider and the wound center. I stressed the importance of the patient returning to the emergency department immediately if his symptoms were to worsen or if he were to develop any dizziness, shortness of breath, difficulty breathing, chest pain, blurry vision, loss of vision, nausea, vomiting, abdominal pain, fever, chills, back pain, or any other complaints. Patient and the patient's verbalized agreement and understanding with this treatment plan and discharge. Differential Diagnosis Differential Diagnoses: The differential diagnosis associated with the presentation includes Skin tear Mechanical fall Independent Interpretation I performed an independent interpretation of an: CT Scan Interpretation: My interpretation is in agreement with the radiologist's impression of these imaging studies. EXAMINATION: CT HEAD WITHOUT CONTRAST CLINICAL INFORMATION: Mechanical fall on anticoagulant COMPARISON: 09/01/2022 TECHNIQUE: Contiguous axial imaging was performed from the skull base to vertex without intravenous administration of contrast. This CT examination was performed using dose optimization techniques as appropriate, variously including the following: *Automated exposure control *Adjustment of mA and/or kV according to patient size (this includes techniques or standardized protocols for targeted exams where dose is matched to indication/reason for exam; i.e. extremities or head) *Use of iterative reconstruction technique DLP: 742 mGy-cm FINDINGS: Mild involutional changes noted. No intra or extra-axial fluid collection or hemorrhage, mass, or mass effect. Calvarium is intact. CT/CT head/brain wo IV con IMPRESSION: No acute intracranial pathology. Dictated By: Keith Garcia MD Signed By: Electronically signed by Keith Garcia MD 07/20/23 0943 EXAMINATION: CT CERVICAL SPINE WITHOUT CONTRAST CLINICAL INFORMATION: Mechanical fall, on anticoagulants COMPARISON: 09/01/2022 TECHNIQUE: Axial imaging with coronal and sagittal reformatted images. This CT examination was performed using dose optimization techniques as appropriate, variously including the following: *Automated exposure control *Adjustment of mA and/or kV according to patient size (this includes techniques or standardized protocols for targeted exams where dose is matched to indication/reason for exam; i.e. extremities or head) *Use of iterative reconstruction technique DLP: 307 mGy-cm FINDINGS: Degenerative changes. No acute fracture or dislocation. CT/CT cervical spine wo IV con IMPRESSION: Degenerative changes. No acute fracture or dislocation in the cervical spine. Fleischner guidelines were followed. Dictated By: Chiki Patiño MD Signed By: Electronically signed by Chiki Patiño MD 07/20/23 6018 Radiology Impression Discussion of test interpretation with radiology: I have reviewed the radiologist's reading. Independent Historian Clinical information obtained from an independent historian. History obtained from or confirmed by: Spouse (patient's provided additional history and confirmed the history provided by the patient.) Prescription Management I considered prescription management with: Antibiotic (patient prescribed a prophylactic antibiotic.) Chronic Conditions Patient?s care impacted by: Other (atrial fib on eliquis) Discharge Plan Discharge Clinical Impression: Skin tear of upper extremity, Skin tear of lower leg without complication Patient Disposition: Home, Self-Care Instructions: Skin Tear (ED) Additional Instructions: Follow up with your primary care provider and the wound center. Return to the emergency department immediately if your symptoms worsen or if you develop any dizziness, shortness of breath, difficulty breathing, chest pain, blurry vision, loss of vision, nausea, vomiting, abdominal pain, fever, chills, back pain, or any other complaints. Prescriptions: New cephalexin 500 mg capsule 500 mg PO Q6H 7 Days Qty: 28 0RF No Action Eliquis 5 mg tablet 5 mg PO BID Qty: 90 0RF Rx Instructions: Patient should take 10 mg p.o. b.i.d. x7 days for DVT then 5 mg b.i.d. until instructed by workforce management analyst allopurinol 100 mg tablet 200 mg PO DAILY tamsulosin 0.4 mg capsule 0.4 mg PO DAILY metoprolol tartrate 25 mg tablet 25 mg PO BID furosemide 20 mg tablet 60 mg PO BID prednisone 20 mg tablet 60 mg PO DAILY Qty: 9 0RF Referrals: [facility] [facility] [Provider Group] (Call to establish and follow up with the wound center. ) Rocco Vicente III, MD [Primary Care Provider] - Interventions: ED Discharge Assessment Last Done: 07/20/23 10:41 Discharge Date/Time: 07/20/23 10:41 Print Language: Tanzanian
[2023-07-20 08:05] VITALS: BP 156/72; PULSE 64; RESP 16; TEMP 36.7; O2SAT 94; BMI 29.0
--- NOTE | 2023-07-20 08:06 | PC.NURSE ---
provider at bedside to close skin tear, pt tolerating procedure well. at bedside
== END 2023-07-20 10:41 | disposition home or self-care (01) ==
PROVIDERS: Emergency Provider Emergency Medicine; PCP Internal Medicine
DX: S71.111A Laceration without foreign body, right thigh, initial encounter (principal); S41.111A Laceration without foreign body of right upper arm, initial encounter; I48.91 Unspecified atrial fibrillation; M54.2 Cervicalgia; R51.9 Headache, unspecified; X58.XXXA Exposure to other specified factors, initial encounter; Y93.9 Activity, unspecified; Y92.9 Unspecified place or not applicable; Y99.9 Unspecified external cause status; Z79.899 Other long term (current) drug therapy; Z87.891 Personal history of nicotine dependence; Z79.01 Long term (current) use of anticoagulants
CPT/HCPCS: 70450; 72125; 99282; 99284

== ENCOUNTER 2023-07-27 14:00 | Outpatient (RCR) | payer MEDICARE, SELFPAY | END 2023-08-12 14:26 | disposition home or self-care (01) | LOC: HO.WCC 14:00 | PROVIDERS: PCP Internal Medicine; Visit Provider Surgery | DX: S81.011A Laceration without foreign body, right knee, initial encounter (principal); S41.111A Laceration without foreign body of right upper arm, initial encounter; S51.811A Laceration without foreign body of right forearm, initial encounter; S61.401A Unspecified open wound of right hand, initial encounter; I10 Essential (primary) hypertension; I48.91 Unspecified atrial fibrillation; W19.XXXA Unspecified fall, initial encounter; Y93.9 Activity, unspecified; Y92.9 Unspecified place or not applicable; Y99.9 Unspecified external cause status; Z95.1 Presence of aortocoronary bypass graft; Z79.01 Long term (current) use of anticoagulants; Z86.718 Personal history of other venous thrombosis and embolism; Z86.73 Personal history of transient ischemic attack (TIA), and cerebral infarction without residual deficits; Z79.899 Other long term (current) drug therapy | CPT/HCPCS: 97597; 99213; 99214 ==

== ENCOUNTER 2023-09-03 05:47 | Emergency (ER) | payer MEDICARE, SELFPAY ==
[2023-09-03] VITALS (7 sets, daily range): BP systolic 145–162; BP diastolic 61–78; PULSE 52–72; RESP 15–20; TEMP 36.6–37.1; O2SAT 93–99; BMI 25.1
--- NOTE | ~2023-09-03 | US_ITS ---
EXAMINATION: US ABDOMEN LIMITED CLINICAL INFORMATION: Right upper quadrant abdominal pain. COMPARISON: None available. TECHNIQUE: Real-time imaging of the right upper quadrant abdominal viscera. The examination is limited due to body habitus and presence of intra-abdominal gas. FINDINGS: PANCREAS: Obscured from visualization due to shadowing from the overlying bowel gas. LIVER: Somewhat limited evaluation. The liver parenchymal echogenicity appears to be increased which can be seen in the setting of hepatic steatosis. Recommend correlation with lab values. Contour of the visualized liver is normal. No focal lesion is noted in the visualized liver parenchyma. No intrahepatic biliary ductal dilatation. GALLBLADDER: The gallbladder is mildly distended. Nonshadowing stone versus sludge in the neck of the gallbladder. Wall of the gallbladder measures 0.3 to 0.4 cm. Reportedly the patient was not tender while scanning over the gallbladder. No pericholecystic fluid is seen. COMMON BILE DUCT: The visualized common bile duct is normal in caliber measuring 0.5 cm in diameter. No filling defect is noted in the visualized common bile duct. RIGHT KIDNEY: Normal in size, contour and echogenicity. Normal cortical thickness. A 3.6 x 3.3 x 3.0 cm partially exophytic simple cyst is noted from the upper pole of the kidney for which no further imaging follow-up is warranted. No hydronephrosis. No renal calculi. The kidney measures 9.7 cm in maximum dimension. FREE FLUID: None. US/US abdomen limited IMPRESSION: Limited evaluation due to body habitus and presence of shadowing from the bowel gas in the abdomen. Small stone(s) versus sludge ball in the neck of the gallbladder. Mild distention of the gallbladder with upper limits of normal thickening of the wall of the gallbladder. Reportedly the patient was not tender while scanning over the region of the gallbladder, correlate with history of administration of pain medication prior to the examination. In the appropriate clinical settings, possibility of acute cholecystitis cannot be completely excluded. Recommend clinical correlation. If clinically deemed necessary, hepatobiliary nuclear medicine study may be considered for further evaluation. Suspected hepatic steatosis.
--- NOTE | ~2023-09-03 | NM_ITS ---
Indication: Right upper quadrant pain with abnormal ultrasound EXAMINATION: HIDA scan. Comparison ultrasound dated 09/03/2023. Findings; Uptake by the lower liver is within normal limits. Ductal activity by 6 minutes. Bowel activity by 10 minutes. Imaging up to 120 minutes does not demonstrate gallbladder activity. The exam is canceled by the ER before the delayed imaging at 4 hours can be obtained. NM/NM hepatobiliary wo pharm IMPRESSION:: Although there is no evidence of gallbladder activity on this exam imaging is only obtained up to 120 minutes. Therefore the exam is incomplete
[2023-09-03 06:23] LABS: Basophils Percent Auto 0.1 % (0-2); Eosinophils Absolute Auto 0.1 X10*3/uL (0.0-0.4); Eosinophils Percent Auto 0.4 % (0-4); Hemoglobin 12.7 g/dl (14.0-18.0); Imm Gran Abs Auto 0.08 X10*3/uL (0.00-0.03); Imm Gran Pct Auto 0.6 % (0.0-0.4); Lymphocytes Absolute Auto 1.2 X10*3/uL (1.2-4.9); Lymphocytes Percent Auto 9.6 % (20-40); MANUAL DIFF FLAG NO; Mean Corpuscular HGB Conc 33.4 g/dl (31.0-36.0); Mean Corpuscular Hemoglobin 32.3 pg (27.0-33.0); Mean Corpuscular Volume 96.7 fL (80.0-98.0); Mean Platelet Volume 11.9 fL (9.4-12.4); Monocytes Absolute Auto 1.1 X10*3/uL (0.1-1.2); Monocytes Percent Auto 8.8 % (2-11); Neutrophils Absolute Auto 9.9 x10*3/uL (2.0-8.3); Neutrophils Percent Auto 80.5 % (45-73); Platelet Count 159 X10*3/uL (160-400); Red Blood Count 3.93 X10*6/uL (4.60-5.80); Red Cell Distribution Width 15.3 % (11.0-16.0); White Blood Count 12.3 X10*3/uL (4.8-10.8)
--- NOTE | 2023-09-03 06:26 | ECG_ITS ---
Test Reason : abd pain Blood Pressure : / mmHG Vent. Rate : 049 BPM Atrial Rate : 000 BPM P-R Int : 000 ms QRS Dur : 090 ms QT Int : 412 ms P-R-T Axes : 000 -26 042 degrees QTc Int : 372 ms Atrial fibrillation with slow ventricular response Left axis deviation Minimal voltage criteria for LVH, may be normal variant ( Edvin product ) Abnormal ECG When compared with ECG of 01-SEP-2022 10:20, Vent. rate has decreased BY 26 BPM Referred By: Generic ED Physician Electronically Signed By:AMANDA CRUZ MD
[2023-09-03 06:37] LABS: Alanine Aminotransferase 21 U/L (0-40); Albumin Level 3.9 g/dL (3.5-5.0); Alkaline Phosphatase 71 U/L (39-117); Anion Gap 15 (12-20); Aspartate Amino Transferase 21 U/L (5-37); Bilirubin Direct 0.3 mg/dL (0.0-0.5); Bilirubin Total 0.9 mg/dL (0.0-1.0); Blood Urea Nitrogen 23 mg/dL (9-16); Calcium 9.5 mg/dL (8.4-10.2); Carbon Dioxide 27 mmol/L (22-29); Chloride 102 mmol/L (96-108); Creatinine Clr Calc Pharmacy 58.4; Estimated Glomerular Filt Rate > 60; Glucose Random 140 mg/dL (60-115); Lipase 21 U/L (8-78); Sodium 140 mmol/L (135-145); Total Protein 6.7 g/dL (6.5-8.0)
--- NOTE | 2023-09-03 07:00 | ED.ABDPAIN ---
HPI - Abdominal Pain General Chief Complaint: Abdominal Pain Stated Complaint: Abdominal Pain Time Seen by Provider: 09/03/23 06:59 Source: patient Mode of arrival: ambulatory Limitations: no limitations History of Present Illness HPI narrative: 78 yo male hx of HTN, gout, afib on eliquis, 2VCABG/AVR at [facility] 1 year ago, here with c/o 4 days of RUQ pain with decreased PO intake and change in stools. No fevers. He notes pain is worse at night. MD elicited complaint: abdominal pain Pertinent past history: none Onset (ago): day(s) (4) Pain Consistency: intermittent Location: RUQ Severity: moderate Quality: stabbing Radiation: none Migration to: no migration Exacerbating factors: movement Relieving factors: nothing Associated symptoms: other (change in stools had normal colonoscopy 10 years ago) Related Data Home Medications Medication Instructions Recorded Confirmed allopurinol 100 mg tablet 200 mg PO BEDTIME 03/09/22 09/03/23 metoprolol tartrate 25 mg tablet 25 mg PO BID 03/09/22 09/03/23 tamsulosin 0.4 mg capsule 0.4 mg PO BEDTIME 03/09/22 09/03/23 furosemide 20 mg tablet 60 mg PO BID 04/18/23 04/18/23 amlodipine 5 mg tablet 5 mg PO DAILY 09/03/23 09/03/23 potassium chloride 20 mEq 20 meq PO DAILY 09/03/23 09/03/23 tablet,extended release(part/cryst) (Klor-Con M) torsemide 20 mg tablet 60 mg PO DAILY 09/03/23 09/03/23 Previous Rx's Medication Instructions Recorded apixaban 5 mg tablet (Eliquis) 5 mg PO BID #90 tabs 09/01/22 prednisone 20 mg tablet 60 mg (3 x 20 mg) PO DAILY #9 tabs 04/18/23 cephalexin 500 mg capsule 500 mg PO Q6H 7 days #28 caps 07/20/23 Allergies Allergy/AdvReac Type Severity Reaction Status Date / Time No Known Allergies Allergy Verified 09/03/23 05:52 Review of Systems Review of Systems Constitutional : No Weight loss, No Fever, No Chills ENT/Mouth : No sore throat, No Rhinorrhea Eyes: No Swelling, No Redness Cardiovascular : No Chest Pain, No SOB, NoEdema Respiratory : No Cough, No Sputum, No Wheezing Gastrointestinal : no Nausea, no Vomiting, no Diarrhea, positive abdominal Pain, No Hematochezia, No Melena, pos constipation Genitourinary : No Dysuria, No Urinary Frequency, No Hematuria, No Urgency Musculoskeletal : No joint pain, No Myalgias, No Joint Swelling Skin : No Skin Lesions, No rash Neuro : No Weakness, No Numbness, No Dizziness, No Headache Psych : No Anxiety/Panic, No Depression All other systems reviewed and are negative. [facility] Past Medical History Attestation statement: The following information was validated with the patient. Medical History Afib HTN (hypertension) Social History Social History Patient Tobacco Use Status: Former Tobacco user Smoked in Last 30 Days: No Use of substances other than those prescribed or required for medical reasons: No Advance Directives: No Advance Directives Information Provided: Yes Physical Exam ED Vital Signs: Vital Signs - 24 hr 09/03/23 05:48 09/03/23 06:11 09/03/23 07:21 Temperature 98.4 F 98.7 F Pulse Rate 72 62 Respiratory Rate 18 16 20 Blood Pressure 156/74 H 162/69 H Pulse Oximetry 99 98 Oxygen Delivery Method Room Air Room Air 09/03/23 07:29 09/03/23 07:56 09/03/23 12:13 Temperature 98.2 F 97.8 F Pulse Rate 61 52 60 Respiratory Rate 20 18 15 Blood Pressure 153/78 H 155/63 H 154/61 H Pulse Oximetry 98 95 93 Oxygen Delivery Method Room Air Room Air Room Air BMI result Body Mass Index 25.1 Appearance: Alert. Oriented X3. No acute distress. Eyes: Pupils equal, round and reactive to light. ENT: Pharynx normal. Neck: Normal inspection. Neck supple. CVS: irregular heart rate and rhythm. Pulses normal. Respiratory: No respiratory distress. Breath sounds normal. Abdomen: Soft and moderate RUQ ttp with + cabrera's sign Skin: Skin warm and dry. Normal skin color. Normal skin turgor. Extremities: No lower extremity edema. No calf ttp Neuro: Oriented X 3. No motor deficit. No sensory deficit. 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 Damon states if patient is + on HIDA and has cholecystitis will need IR drainage not a good surgical candidate (CABG/AVR on eliquis - 1 year ago at [facility]) and would recommend transfer states we do not have IR over the weekend and delay in IR. patient would prefer surgery not drainage Reevaluation #2: going to give zosyn - preliminary nuc tech states no uptake at all will need further 4 hour testing. Reevaluation #3: patient and familiy aware of transfer if he has + HIDA scan - took his eliquis this AM, signed out to Dr. Bae Additional Reevaluation(s): call to [facility] systems 442pm. accepted to [place] [facility] Dr. [place] Medical Decision Making Medical Decision Making [facility] Narrative: 78 yo male with afib on eliquis, HTN, s/p 2VCABG / AVR 1 year ago at [facility] no prior abdominal surgeries here with RUQ pain worse at night with decreased PO intake and change in stools at this time + RUQ pain and + cabrera's sign at this time will obtain basic labs, US to evaluate GB, IV morphine for pain. Could be biliary colic, renal colic, mass. Differential Diagnosis Differential Diagnoses: The differential diagnosis associated with the presentation includes biliary colic, renal colic, mass Admission/Observation Consideration of admission/observation: Escalation of care including admission/observation considered transfer per our Surgeons' request Consult Healthcare Provider Management of the patient was discussed with: Clarification Operator (discussed with Dr. Damon - would proceed with HIDA scan) Lab Data [facility] Lab Attestation statement: I reviewed the patient's lab results. 09/03/23 06:13 09/03/23 06:13 Labs: Lab Results 09/03/23 09/03/23 09/03/23 Range/Units 06:13 06:38 07:59 WBC 12.3 H (4.8-10.8) X10*3/uL RBC 3.93 L (4.60-5.80) X10*6/uL Hgb 12.7 L (14.0-18.0) g/dl Hct 38.0 L (42.0-52.0) % MCV 96.7 (80.0-98.0) fL MCH 32.3 (27.0-33.0) pg MCHC 33.4 (31.0-36.0) g/dl RDW 15.3 (11.0-16.0) % Plt Count 159 L (160-400) X10*3/uL MPV 11.9 (9.4-12.4) fL Immature Gran % (Auto) 0.6 H (0.0-0.4) % Neut % (Auto) 80.5 H (45-73) % Lymph % (Auto) 9.6 L (20-40) % [place] % (Auto) 8.8 (2-11) % Eos % (Auto) 0.4 (0-4) % Baso % (Auto) 0.1 (0-2) % Lymph # (Auto) 1.2 (1.2-4.9) X10*3/uL [place] # (Auto) 1.1 (0.1-1.2) X10*3/uL Eos # (Auto) 0.1 (0.0-0.4) X10*3/uL Baso # (Auto) 0.0 (0.0-0.2) X10*3/uL Abs Immat Gran (auto) 0.08 H (0.00-0.03) X10*3/uL Absolute Neuts (auto) 9.9 H (2.0-8.3) x10*3/uL Absolute Nucleated RBC 0.000 (0.0-0.012) X10*3/uL Nucleated RBC % (auto) 0.0 (0.0-0.2) /100WBC Sodium 140 (135-145) mmol/L Potassium 4.0 (3.3-5.1) mmol/L Chloride 102 (96-108) mmol/L Carbon Dioxide 27 (22-29) mmol/L Anion Gap 15 (12-20) BUN 23 H (9-16) mg/dL Creatinine 0.99 (0.5-1.4) mg/dL Estim Creat Clear Calc 58.4 Estimated GFR > 60 Random Glucose 140 H (60-115) mg/dL Calcium 9.5 (8.4-10.2) mg/dL Total Bilirubin 0.9 (0.0-1.0) mg/dL Direct Bilirubin 0.3 (0.0-0.5) mg/dL AST 21 (5-37) U/L ALT 21 (0-40) U/L Alkaline Phosphatase 71 (39-117) U/L Troponin I High Sens 16.7 (<3.5-35.0) ng/L Total Protein 6.7 (6.5-8.0) g/dL Albumin 3.9 (3.5-5.0) g/dL Lipase 21 (8-78) U/L Urine Color Yellow Urine Appearance Clear Urine pH 6.5 (5.0-9.0) Ur Specific [place] 1.020 (1.005-1.025) Urine Protein 30 (1+) H (Neg-Trace) mg/dL Urine Glucose (UA) Negative (Negative) mg/dL Urine Ketones Negative (Negative) mg/dL Urine Blood Negative (Negative) Urine Nitrite Negative (Negative) Ur Leukocyte Esterase Negative (Negative) Urine RBC 3-5 H (0-2) /HPF Urine WBC 0-5 (0-5) /HPF Ur Squamous Epith Cells 0-2 (0-2) /HPF Urine Bacteria None Seen (None Seen) Hyaline Casts 0-2 (0-2) /LPF Independent Interpretation I performed an independent interpretation of an: EKG and Ultrasound (?biliary colic vs cholecystitis) Interpretation: Rate: 49 Rhythm: afib [place]: left Normal QRS complex. ST T wave : no JERRY, no ST depressions qTC: normal prior studies: no acute ischemia The study has been interpreted contemporaneously by me. . Radiology Impression Discussion of test interpretation with radiology: I have reviewed the radiologist's reading. Radiologist Impression: Nuc no uptake in GB Independent Historian Clinical information obtained from an independent historian. History obtained from or confirmed by: Spouse External Record Review External record reviewed: Outpatient record Medications Administered Generic Name Dose Route Start Last Admin Trade Name Freq PRN Reason Stop Dose Admin Sodium Chloride 1,000 mls @ 100 mls/hr 09/03/23 15:30 09/03/23 16:07 Ns IVCONT 100 mls/hr .Q10H NAVIN Administration Discontinued Medications Generic Name Dose Route Start Last Admin Trade Name Freq PRN Reason Stop Dose Admin Piperacillin Sod/Tazobactam 50 mls @ 100 mls/hr 09/03/23 15:29 09/03/23 16:14 Sod 3.375 gm/ Sodium Chloride IV 09/03/23 15:58 100 mls/hr ONCE ONE Administration Morphine Sulfate 4 mg 09/03/23 07:10 09/03/23 07:21 Morphine Sulfate 4 Mg/Ml Cartridge IVPUSH 09/03/23 07:11 4 mg ONCE ONE Administration Protocol Ondansetron HCl 4 mg 09/03/23 07:10 09/03/23 07:22 Ondansetron Hcl 4 Mg/2 Ml Vial IVPUSH 09/03/23 07:11 4 mg ONCE ONE Administration Discharge Plan Discharge Clinical Impression: Biliary colic, Acute cholecystitis Abdominal pain Qualifiers: Abdominal location: right upper quadrant Qualified Code(s): R10.11 - Right upper quadrant pain Patient Disposition: General Acute Hospital Transfer Details: [facility] Prescriptions: No Action Eliquis 5 mg tablet 5 mg PO BID Qty: 90 0RF Rx Instructions: Patient should take 10 mg p.o. b.i.d. x7 days for DVT then 5 mg b.i.d. until instructed by book jogger cephalexin 500 mg capsule 500 mg PO Q6H 7 Days Qty: 28 0RF amlodipine 5 mg tablet 5 mg PO DAILY potassium chloride [Klor-Con M20] 20 mEq tablet,ER particles/crystals 20 meq PO DAILY torsemide 20 mg tablet 60 mg PO DAILY allopurinol 100 mg tablet 200 mg PO BEDTIME tamsulosin 0.4 mg capsule 0.4 mg PO BEDTIME metoprolol tartrate 25 mg tablet 25 mg PO BID furosemide 20 mg tablet 60 mg PO BID prednisone 20 mg tablet 60 mg PO DAILY Qty: 9 0RF
[2023-09-03 07:03] LABS: Troponin-I High Sensitivity 16.7 ng/L (<3.5-35.0)
[2023-09-03] MEDS: Morphine Sulfate 4 MG/ML CARTRIDGE IVPUSH (07:21)
[2023-09-03] MEDS: ondansetron HCL 4 MG/2 ML VIAL IVPUSH (07:22)
--- NOTE | 2023-09-03 07:28 | PC.NURSE ---
Alert and oriented, medicated for complaints of 7/10 abdominal pain. remains in afib, hr 60.
[2023-09-03 08:14] LABS: Appearance Urine Clear; Color Urine Yellow; Glucose Urine UA Negative (Negative); Leukocyte Esterase Urine Negative (Negative); Nitrite Urine Negative (Negative); PH 6.5 (5.0-9.0); UMIC TRIGGER UACC YES; Urine Blood Negative (Negative); Urine Ketones Negative (Negative); Urine Protein 30 (1+) mg/dL (Neg-Trace)
[2023-09-03 08:16] LABS: Bacteria Urine None Seen (None Seen); Hyaline Casts Urine 0-2 /LPF (0-2); Squamous Epithelial Cell Urine 0-2 /HPF (0-2); WBC Urine 0-5 /HPF (0-5)
--- NOTE | 2023-09-03 09:58 | PC.NURSE ---
Patient reminded that he remains NPO at this time
--- NOTE | 2023-09-03 10:18 | PC.NURSE ---
Patient/ report he has been NPO since 5am
--- NOTE | 2023-09-03 11:12 | PC.NURSE ---
Patient aware that scan is scheduled to be done around 1pm
--- NOTE | 2023-09-03 13:49 | PC.NURSE ---
[facility]
[2023-09-03] MEDS: 0.9 % Sodium Chloride 1,000 ML 100 ML IVCONT (16:07)
[2023-09-03] MEDS: Piperacillin Sodium/Tazobactam 3.375 GM in 0.9 % Sodium Chloride 50 ML IV (16:14)
--- NOTE | 2023-09-03 17:02 | PC.NURSE ---
Per patients request daughter updated on current condition and plan of care. Patient signed consent to transfer to [facility]
--- NOTE | 2023-09-03 18:02 | PC.NURSE ---
Patient transferred to [facility] via ems, x2 attempts to call report to [facility] unsuccessful at this time
== END 2023-09-03 18:21 | disposition short-term general hospital (02) ==
PROVIDERS: Emergency Medicine; Emergency Provider Student in an Organized Health Care Education/Training Program; PCP Internal Medicine
DX: K80.42 Calculus of bile duct with acute cholecystitis without obstruction (principal); R10.11 Right upper quadrant pain; R19.4 Change in bowel habit; I10 Essential (primary) hypertension; I48.91 Unspecified atrial fibrillation; Z95.2 Presence of prosthetic heart valve; Z95.1 Presence of aortocoronary bypass graft; Z87.891 Personal history of nicotine dependence; Z79.01 Long term (current) use of anticoagulants; Z79.899 Other long term (current) drug therapy
CPT/HCPCS: 36415; 76705; 78226; 80053; 81001; 82248; 83690; 84484; 85025; 93005; 96365; 96366; 96375; 99285; A9537; J2270; J2405; J2543

== ENCOUNTER 2024-02-21 08:12 | Outpatient (AMB) | payer MEDICARE, SELFPAY ==
--- OUTSIDE RECORDS SUMMARY | 2024-02-21 08:21 | XMS_ITS | Patient Health Record ---
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 Name Role Phone Candelario Vicente MD Primary Care Provider Dewey schuler Sherrie Crystal Unavailable [phone] ALLERGIES No Known Allergies REASON FOR REFERRAL No Information MEDICATIONS Medication SIG (Take, Route, Frequency, Duration) Notes Start Date End Date Status Torsemide Active Eliquis 5 MG 1 tablet Orally Twic e a day for 30 day(s) once a day Active amLODIPine Besylate Active Potassium Active Atorvastatin Calcium Active Lisinopril Not-Takin g Furosemide Not-Takin g Atorvastatin Calcium Not-Taking Warfarin Sodium Not- Taking oxyCODONE HCl 5 MG TAKE 1 TABLET BY MOUTH EVERY 4 HOURS NEEDED Oral for 7 Days Active Colchicine Not-Takin g Compression Stockings 20-30mm Hg 1 pair wear daily for 30 days Active Compression Stockings 20-30mm Hg 1 pair wear daily for 30 days Active [id number] PRN Active Physical Therapy 3-4x per week for 3- 4 weeks 03/15/2019 Not-Taking Allopurinol 100 MG Orally twice daily Active Ciclopirox Olamine 0.77% external Apply to effected areas twice a day for 30 days 01/06/2017 Not-Taking Metoprolol Tartrate Active Juni Aspirin Not-Ta roney Ciclopirox Olamine 0.77 % 1 application Externally Twice a day for 30 days Active Tamsulosin HCl Activ e Clotrimazole-Betametha sone 1-0.05 % APPLY TWICE DAILY TO AFFECTED AREA TWICE DAILY External for 10 Not-Taking IMMUNIZATIONS Vaccine Route Administration Date Status Comme nts COVID-19 Moderna Vaccine Unknown 12/24/2020 Administered Second Dose: 01/24/2021 SOCIAL HISTORY Tobacco Use: Social History Observation Description Date Details (start date - stop date) Former Smoker NA - NA Sex Assigned At : Social History Observation Description Sex Assigned At Unknown Tobacco Use/Smoking Question Answer Notes Are you a: former smoker How long has it been since you last smoked? 1-3 months Additional Findings: Tobacco Non-User Current no n-smoker Alcohol Screen Question Answer Notes Did you have a drink containing alcohol in the p ast year? No Points 0 Interpretation Negative Tobacco use other than smoking: Question Answer Notes Are you an other tobacco user? 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, bilateral legs (I70.203) Active confirmed Atherosclerosis of redding arteries of the extremities (556099433869875) Problem Primary osteoarthritis, right ankle and foot (M19.071) Active confirmed Localized, primary osteoarthritis of the ankle and/or foot (175672453) Problem Primary osteoarthritis, left ankle and foot (M19.072) Active confirmed Localized, primary osteoarthritis of the ankle and/or foot (131197458) Problem Neuropathy (G62.9) Active confirmed 386 948553 Problem Venous insufficiency (I87.2) Active confirmed 04875224 Problem 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) Active confirmed 45776227 Problem 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) Active confirmed Intermittent claudication due to atherosclerosis of artery of limb (finding) (439062759) VITAL SIGNS Height 5 ft 7 in in 12/22/2023 Weight 160 lbs 12/22/2023 BMI 25.06 kg/m2 12/22/2023 PROCEDURES Procedure Date Ordered Date Performed Result Body Sit e 43995-MCHVDQK NAIL, 6 OR MORE 02/28/2023 N/A 57058-CMCB SKIN LESIONS, OVER 4 02/28/2023 N/A 33148-ISIPTGX NAIL, 6 OR MORE 06/13/2023 N/A 93569-CGGFXOH NAIL, 6 OR MORE 09/15/2023 N/A 08549-CTUSFCH NAIL, 6 OR MORE 12/22/2023 N/A Encounters Encounter Location Date Provider Diagnosis [facility] [address] [address] 02/28/2023 Sherrie Black Unspecified atherosclerosis of redding arteries of extremities, bilateral legs I70.203 ; Intermittent claudication due to atherosclerosis of artery of extremity I70.219 ; Tinea unguium B35.1 ; Pain in right toe(s) M79.674 and Pain in left toe(s) M79.[address] [address] 02/28/[address] [address] 03/03/2023 Sherrie Black [address] [address] 06/13/2023 Sherrie Black Tinea unguium B35.1 ; Edema, lower extremity R60.0 ; Pain in right toe(s) M79.674 ; Pain in left toe(s) M79.675 and Venous insufficiency I87.[address] [address] 07/14/2023 Sherrie Black [address] [address] 09/15/2023 Sherrie Black Tinea unguium B35.1 ; Pain in right toe(s) M79.674 ; Pain in left toe(s) M79.675 and Tinea pedis of both feet B35.[address] [address] 12/22/2023 Sherrie Black Tinea unguium B35.1 ; Edema, lower extremity R60.0 ; Pain in right toe(s) M79.674 ; Pain in left toe(s) M79.675 and Tinea pedis of both feet B35.3 ASSESSMENTS Encounter Date Diagnosis Assessment Notes Treatment Notes Treatment Clinical Notes 02/28/2023 Unspecified atherosclerosis of redding arteries of extremities, bilateral legs (ICD-10 - I70.203) 02/28/2023 Intermittent claudication due to atherosclerosis of artery of extremity (ICD-10 - I70.219) 06/13/2023 Tinea unguium (ICD-1 0 - B35.1) 06/13/2023 Edema, lower extremi ty (ICD-10 - R60.0) 09/15/2023 Tinea unguium (ICD-1 0 - B35.1) 09/15/2023 Pain in right toe(s) (ICD-10 - M79.674) 12/22/2023 Tinea unguium (ICD-1 0 - B35.1) 12/22/2023 Edema, lower extremi ty (ICD-10 - R60.0) 12/22/2023 Pain in right toe(s) (ICD-10 - M79.674) 09/15/2023 Pain in left toe(s) (ICD-10 - M79.675) 06/13/2023 Pain in right toe(s) (ICD-10 - M79.674) 02/28/2023 Tinea unguium (ICD-1 0 - B35.1) 02/28/2023 Pain in right toe(s) (ICD-10 - M79.674) 06/13/2023 Pain in left toe(s) (ICD-10 - M79.675) 09/15/2023 Tinea pedis of both feet (ICD-10 - B35.3) 12/22/2023 Pain in left toe(s) (ICD-10 - M79.675) 12/22/2023 Tinea pedis of both feet (ICD-10 - B35.3) 06/13/2023 Venous insufficiency (ICD-10 - I87.2) 02/28/2023 Pain in left toe(s) (ICD-10 - M79.675) PLAN OF TREATMENT Pending Test Test Name Order Date 37313-EWXMQPI NAIL, 6 OR MORE 05/23/2017 74869-JZURTFS NAIL, 6 OR MORE 08/29/2017 87913-XDPEGHG NAIL, 6 OR MORE 12/01/2017 85480-ASZSFFT NAIL, 6 OR MORE 02/07/2017 68194-VWPAKJR NAIL, 6 OR MORE 03/02/2018 81817-QABXKOD NAIL, 6 OR MORE 06/01/2018 28500-PQWVLZZ NAIL, 6 OR MORE 09/14/2018 54335-LPVUOCJ NAIL, 6 OR MORE 12/14/2018 59169-AKINVAZ NAIL, 6 OR MORE 03/15/2019 55813-ZCKSYRJ NAIL, 6 OR MORE 06/14/2019 36263-CIAHKUA NAIL, 6 OR MORE 11/08/2019 50079-BNGUCRC NAIL, 6 OR MORE 03/17/2020 02618-YMXJBUK NAIL, 6 OR MORE 06/19/2020 74748-KVIJPXF NAIL, 6 OR MORE 09/22/2020 49265-FYWHELN NAIL, 6 OR MORE 01/29/2021 14078-ZAYAEEA NAIL, 6 OR MORE 08/24/2021 77782-CYYLWIY NAIL, 6 OR MORE 01/28/2022 53121-QJYIKNO NAIL, 6 OR MORE 08/16/2022 15812-BDNGWQT NAIL, 6 OR MORE 11/22/2022 64496-YZMQAGM NAIL, 6 OR MORE 02/28/2023 59815-NFZPOIB NAIL, 6 OR MORE 06/13/2023 77542-ZLFXBYL NAIL, 6 OR MORE 09/15/2023 85451-MMXUACQ NAIL, 6 OR MORE 12/22/2023 62898-YCVIAEJ NAIL, 6 OR MORE 05/03/2022 17636-LVMF SKIN LESIONS, OVER 4 08/16/20 22 43743-OVTG SKIN LESIONS, OVER 4 11/22/19 23 13993-KDHM SKIN LESIONS, OVER 4 02/29/20 23 71460-PXPT SKIN LESIONS, OVER 4 05/03/20 22 00698-MNJR SKIN LESIONS, 2 TO 4 06/14/20 19 28268-OLIZ SKIN LESIONS, 2 TO 4 03/15/20 19 56882-GEPU SKIN LESIONS, 2 TO 4 12/14/19 19 85487-VYDZ SKIN LESIONS, 2 TO 4 09/14/20 18 69921-YYRJ SKIN LESIONS, 2 TO 4 06/01/20 18 65683-UXNK SKIN LESIONS, 2 TO 4 05/23/20 17 43575-HQNG SKIN LESIONS, 2 TO 4 12/01/19 18 25730-XQXK SKIN LESIONS, 2 TO 4 03/02/20 18 71882-UYIX SKIN LESION 01/28/2022 22804-KNMD SKIN LESION 08/24/2021 Next Appt Details Provider Name:Sherrie Luciano Bonilla , 04/05/2024 09:00:00 AM, [address] [place], [address], Insurance Providers Payer Name Payer Address Payer Phone Subscriber Number Group Number Insured Name Patient Relationship to Insured Coverage Start Date Coverage End Date Medicare [employer] [facility] [address] [place] [phone] [id number] Kelechi Rajeshrodolfo Self - patient is the insured AARP Secondary to Medicare [address] [place] [address] [id number] Gonsalo Lorenz Self - patient is the insured MEDICAL (GENERAL) HISTORY Medical History History ICD Code Arthritis Back,Hip,and Knee pain CAD (Cholesterol) Gout Heart disease High blood pressure Kidney disease Liver disease Poor circulation Stroke Measles Mumps Chicken pox Joint implants/screws Surgical History Surgery Date(Month/Year) Rotator Cuff Surgery 2006 Stent put in neck 10/2016 cataract surgery 09/05 Heart Surgery 05/07 Stent Surgery 2022 Hospitalization History Reason Date(Month/Year) MH Stent 07/14/2017
--- OUTSIDE RECORDS SUMMARY | 2024-02-21 08:21 | XMS_ITS | Continuity of Care Document ---
Author Organization [facility] Address [address] [place] [address]- Care Team Providers Care Environmental Protection Specialist Name Role Phone Jules WEATHERS MD, Rocco Chua Primary Care Physician [phone] [place] [facility] [place](s): 09/01/22 - 10/01/22 [facility] [address] [place] [address]- [place] Allergies, Adverse Reactions, Alerts No Known Allergies Immunizations Given and Recorded Vaccine Date Status Refusal Reason SARS-CoV-2 (COVID-19) mRNA-1273 vaccine 08/19/21 R ecorded SARS-CoV-2 (COVID-19) mRNA-1273 vaccine 01/24/21 R ecorded SARS-CoV-2 (COVID-19) mRNA-1273 vaccine 12/27/20 R ecorded Not Given Vaccine Date Status Refusal Reason pneumococcal 13-valent vaccine 02/22/16 Not Given Patient Refuses Medications 20 - 30mmHg below knee support stockings 20 - 30mmHg below knee support stockings, See Instructions, # 4 pair, Refills 0, Tot. Refills 0, Maintenance, symptomatic varicose veins bilateral, 06/16/16 15:40:16, Compound Start Date: 06/16/16 Status: Ordered acetaminophen-oxyCODONE 325 mg-5 mg oral tablet 1, tablet, By Mouth, Every 6 hours, Refills 0, Tot. Refills 0, Maintenance, 08/03/22 11:15:00 EDT, Partial fill upon patient request if the prescription is for a schedule II opioid drug. Start Date: 08/03/22 Status: Ordered allopurinol 100 mg oral tablet 100 mg, 1, tablet, By Mouth, Daily, Refills 0, Maintenance, 11/30/18 13:15:36 EST Start Date: 11/30/18 Status: Ordered aspirin 81 mg oral delayed release tablet 81 mg, 1, tablet, By Mouth, Daily, # 30 tablet, Refills 0, Maintenance, 04/30/22 16:13:00 EDT, Partial fill upon patient request if the prescription is for a schedule II opioid drug. Start Date: 04/30/22 Status: Ordered Eliquis 5 mg oral tablet 1 tablet = 5 mg, By Mouth, 2 times a day, 0 Refills, Maintenance, 09/22/22 16:19:00 EST, Partial fill upon patient request if the prescription is for a schedule II opioid drug. Start Date: 09/22/22 Status: Ordered Flomax 0.4 mg oral capsule 0.4 mg, 1, capsule, By Mouth, Daily at bedtime, # 30 capsule, Refills 0, Tot. Refills 0, Maintenance, 02/22/16 11:29:46 EDT, Route to Pharmacy Electronically, [facility]/pharmacy #[id number] Start Date: 02/22/16 Status: Ordered metoprolol 25 mg oral tablet 25 mg, 1, tablet, By Mouth, 2 times a day, # 60 tablet, Refills 0, Tot. Refills 0, Maintenance, 02/22/16 11:22:06, Route to Pharmacy Electronically, [id number], [facility]/pharmacy#[id number] Start Date: 02/22/16 Status: Ordered Norvasc 5 mg oral tablet 5 mg, 1, tablet, By Mouth, Daily, Refills 0, Maintenance, 05/20/22 14:21:00 EDT, Partial fill upon patient request if the prescription is for a schedule II opioid drug. Start Date: 05/20/22 Status: Ordered potassium chloride 20 mEq oral tablet, extended release 2 tablet = 40 mEq, By Mouth, 2 times a day, 0 Refills, Maintenance, 05/20/22 14:22:00 EDT, ER Tablet, Partial fill upon patient request if the prescription is for a schedule II opioid drug. Start Date: 05/20/22 Status: Ordered torsemide 20 mg oral tablet See Instructions, Take 3 tablet By Mouth in the morning, # 90 tablet, 0 Refills, Maintenance, 08/03/22 12:07:00 EDT, Tablet, Partial fill upon patient request if the prescription is for a schedule IIopioid drug. Start Date: 08/03/22 Status: Ordered Vitamin B12 = 1,000 mcg, Daily, 0 Refills, Maintenance, 05/19/16 9:41:38 EDT Start Date: 05/19/16 Status: Ordered Problem List Condition Confirmation Course Effective Dates Status Health St atus Informant Aortic stenosis Confirmed Active Atrial fibrillation on warfarin Confirmed Active HLD (hyperlipidemia) Confirmed Active HTN (hypertension) Confirmed Active PAD (peripheral artery disease) Confirmed Active Social History Social History Type Response Smoking Status Former smoker; Tobac co user in household: No; Other: quit 1980s.; entered on: 03/01/18 Sex Patient Care team information Care Team Personnel Name: Chidi Kyle RN Position: [facility] RN Supv Member Role: Primary Care Nurse Name: Ashley Sam Position: [facility] RN Member Role: Primary Care Nurse Name: Rocco Vicente III, MD Position: [facility] Ambulatory (view) Member Role: PCP Address: Address: [address] [place] [address] Name: Ragini Greco Position: [facility] RN Member Role: Primary Care Nurse Name: Yudi Marshall RN Position: [facility] RN Supv Member Role: Primary Care Nurse Name: Paul Gardner Position: [facility] Associate Professional Member Role: Lifetime Consulting Provider Address: Address: [address] [place] [address] Name: Edwar Mckay MD Position: [facility] Renal MD Member Role: Lifetime Consulting Physician Address: Address: [address] [place] [address] [address] [facility] [place], [address] Name: Kathy Simon RN Position: [facility] RN Member Role: Primary Care Nurse Care Team Related Persons Name: ASHWIN VINSON Address: home [address] [place] [address] Name: MIGUEL JUAN Address: [place] [address] Name: SAME, DEFAULTED
--- OUTSIDE RECORDS SUMMARY | 2024-02-21 08:21 | XMS_ITS | Continuity of Care Document ---
Author Organization [facility] Carlos ashley Address [address] [place] [address]- Care Team Providers Care Sewage Screen Operator Name Role Phone Rocco Vicente III, MD Primary Care Physician Encounter [facility] [place] Date(s): 06/16/22 - 06/23/22 [facility] [address] [place] [address]- Attending Physician: Mahi Martínez NP Referring Physician: Rocco Vicente III, MD Allergies, Adverse Reactions, Alerts No Known Allergies [...] 15:40:16, Compound Start Date: 06/16/16 Status: Ordered allopurinol 100 mg oral tablet 100 mg, 1, tablet, By Mouth, 2 times a day, Refills 0, Maintenance, 11/30/18 13:15:36 EST Start Date: 11/30/18 Status: Ordered aspirin 81 mg oral delayed release tablet 81 mg, 1, tablet, By Mouth, Daily, # 30 tablet, Refills 0, Maintenance, 04/30/22 16:13:00 EDT, Partial fill upon patient request if the prescription is for a schedule II opioid drug. Start Date: 04/30/22 Status: Ordered Flomax 0.4 mg oral capsule 0.4 mg, 1, capsule, By Mouth, Daily at bedtime, # 30 capsule, Refills 0, Tot. Refills 0, Maintenance, 02/22/16 11:29:46 EDT, Route to Pharmacy Electronically, [facility]/pharmacy #[id number] Start Date: 02/22/16 Status: Ordered metolazone 2.5 mg oral tablet 2.5 mg, 1, tablet, By Mouth, Daily, Take only ONE TABLET now. Do not take the other two tablets until other kitchen directed by a provider, # 3 tablet, Refills 0, Tot. Refills 0, Maintenance, 06/16/22 12:05:00 EDT, Route to Pharmacy [facility]ically, [facility]... Start Date: 06/16/22 Status: Ordered metoprolol 25 mg oral tablet 25 mg, 1, tablet, By Mouth, 2 times a day, # 60 tablet, Refills 0, Tot. Refills 0, Maintenance, 02/22/16 11:22:06, Route to Pharmacy Electronically, [id number], [id number] Start Date: 02/22/16 Status: Ordered Norvasc 5 [...] Take 3 tablet By Mouth in the morning and 1 tablet in the evening, 0 Refills, Maintenance, 05/20/22 14:22:00 EDT, Tablet, Partial fill upon patient request if the prescription is for a schedule II opioid drug. Start Date: 05/20/22 Status: Ordered Vitamin B12 = 1,000 mcg, Daily, 0 Refills, Maintenance, 05/19/16 9:41:38 EDT Start Date: 05/19/16 Status: Ordered warfarin 2 mg oral tablet 1 tablet = 2 mg, By Mouth, Once, 0 Refills, Maintenance, 05/20/22 14:22:00 EDT, Tablet, Partial fill upon patient request if the prescription is for a schedule II opioid drug. Start Date: 05/20/22 Status: Ordered Problem List Condition Effective Dates Status Health Status Inform ant Aortic stenosis(Confirmed) Active Atrial fibrillation on warfarin(Confirmed) Active HLD (hyperlipidemia)(Confirmed) Active HTN (hypertension)(Confirmed) Active PAD (peripheral artery disease)(Confirmed) Active Social History Social History Type Response Smoking Status Former smoker; Tobac co user in household: No; Other: quit 1980s.; entered on: 03/01/18 Sex Care Team Personnel Name: Jules WEATHERS MD, Rocco Chua Address: [address] [place] [address]
--- OUTSIDE RECORDS SUMMARY | 2024-02-21 08:21 | XMS_ITS | Continuity of Care Document ---
Author Organization [facility] Carlos ashley Address [address] [place] [address]- Care Team Providers Care Oilfield Plant And Field Operator Name Role Phone Rocco Vicente III, MD Primary Care Physician Encounter [facility] [place] Date(s): 07/05/22 - 08/04/22 [facility] Card[facility] Surgery [address] [place] [address]- Attending Physician: Admtr, Ar8 Admitting Physician: Admtr, Ar8 Referring Physician: Admtr, Ar8 Allergies, Adverse Reactions, Alerts No Known Allergies [...] 02/22/16 11:29:46 EDT, Route to Pharmacy Electronically, [facility]/pharmacy #[id number] Start Date: 02/22/16 Status: Ordered metoprolol 25 mg oral tablet 25 mg, 1, tablet, By Mouth, 2 times a day, # 60 tablet, Refills 0, Tot. Refills 0, Maintenance, 02/22/16 11:22:06, Route to Pharmacy Electronically, [id number], [facility]/pharmacy#[id number] Start Date: 02/22/16 Status: Ordered Norvasc 5 [...] on: 03/01/18 Sex Patient Care team information Personnel Name: Jules WEATHERS MD, Rocco Chua Address: Address: [address] [place] [id number]
--- OUTSIDE RECORDS SUMMARY | 2024-02-21 08:21 | XMS_ITS | Continuity of Care Document ---
Author Organization [facility] Address [address] [place] [address]- Care Team Providers Care Baggage And Mail Agent Name Role Phone Jules WEATHERS MD, Rocco Chua Primary Care Physician [place] [facility] [place] [facility] [id number] Date(s): 07/14/22 - 09/05/22 [facility] [address] [place] [address]- Attending Physician: Julien Wise MD Admitting Physician: Julien Wise MD Referring Physician: Rocco Vicente III, MD Allergies, [...] 02/22/16 11:29:46 EDT, Route to Pharmacy Electronically, [facility]/pharmacy #[id number] Start Date: 02/22/16 Status: Ordered metoprolol 25 mg oral tablet 25 mg, 1, tablet, By Mouth, 2 times a day, # 60 tablet, Refills 0, Tot. Refills 0, Maintenance, 02/22/16 11:22:06, Route to Pharmacy Electronically, [id number], [facility]/pharmacy#[id number] Start Date: 02/22/16 Status: Ordered [...] Team Personnel Name: Chidi Kyle RN Position: [facility] RN Supv Member Role: Primary Care Nurse Name: Ashley Sam Position: [facility] RN Member Role: Primary Care Nurse Name: Rocco Vicente III, MD Position: [facility] Ambulatory (view) Member Role: PCP Address: Address: [address] [place] [address]- Name: Ragini Greco Position: S RN Member Role: Primary Care Nurse Name: Yudi Marshall RN Position: [facility] RN Supv Member Role: Primary Care Nurse Name: Paul Gardner Position: [facility] Associate Professional Member Role: Lifetime Consulting Provider Address: Address: [address] [place] [address]- Name: Edwar Mckay MD Position: [facility] Renal MD Member Role: Lifetime Consulting Physician Address: Address: [address] [place] [address] [address] [facility] [place], [place] [address]- Name: Kathy Simon RN Position: [facility] RN Member Role: Primary Care Nurse Care Team Related Persons Name: ASHWIN VINSON Address: home [address] [place] [address] Name: MIGUEL JUAN Address: [place] [address] Name: SAME, DEFAULTED
--- OUTSIDE RECORDS SUMMARY | 2024-02-21 08:21 | XMS_ITS | Continuity of Care Document ---
Author Organization [facility] Address [address] [place] [address]- Care Team Providers Care Research Psychologist Name Role Phone Jules WEATHERS MD, Rocco Chua Primary Care Physician Encounter [facility] [place] Date(s): 12/21/23 - 01/20/24 [facility] [address] [place] [address] Attending Physician: Admfly, Edgar Admitting Physician: Admtr, Ar8 Referring Physician: Admtr, Ar8 Allergies, Adverse Reactions, Alerts No Known Allergies Immunizations Given and Recorded Vaccine Date Status Refusal Reason SARS-CoV-2 (COVID-19) mRNA-1273 vaccine 08/19/21 R ecorded SARS-CoV-2 (COVID-19) mRNA-1273 vaccine 01/24/21 R ecorded SARS-CoV-2 (COVID-19) mRNA-1273 vaccine 12/27/20 R ecorded Medications 20 - 30mmHg below knee support stockings 20 - 30mmHg below knee support stockings, See Instructions, # 4 pair, Refills 0, Tot. Refills 0, Maintenance, symptomatic varicose veins bilateral, 06/16/16 15:40:16, Compound Start Date: 06/16/16 Status: Ordered aspirin 81 mg oral delayed release tablet 81 mg, 1, tablet, By Mouth, Daily, # 30 tablet, Refills 0, Maintenance, 04/30/22 16:13:00 EDT, Partial fill upon patient request if the prescription is for a schedule II opioid drug. Start Date: 04/30/22 Status: Ordered atorvastatin 40 mg oral tablet 1 tablet = 40 mg, By Mouth, Daily, # 90 tablet, 3 Refills, Maintenance, 01/21/23 10:31:00 EDT, Tablet, [id number], Partial fill upon patient request if the prescription is for a schedule II opioid drug., 169, cm, 01/21/23 10:22:00 EDT, Height,... Start Date: 01/21/23 Status: Ordered Eliquis 5 mg oral tablet [...] 02/22/16 11:29:46 EDT, Route to Pharmacy Electronically, [facility]/pharmacy #[id number] Start Date: 02/22/16 Status: Ordered metoprolol 25 mg oral tablet 25 mg, 1, tablet, By Mouth, 2 times a day, # 60 tablet, Refills 0, Tot. Refills 0, Maintenance, 02/22/16 11:22:06, Route to Pharmacy Electronically, [id number], [facility]/pharmacy#[id number] Start Date: 02/22/16 Status: Ordered Norvasc 5 mg oral tablet 5 mg, 1, tablet, By Mouth, Daily, Refills 0, Maintenance, 05/20/22 14:21:00 EDT, Partial fill upon patient request if the prescription is for a schedule II opioid drug. Start Date: 05/20/22 Status: Ordered Oxycodone = 5 mg, By Mouth, 0 Refills, Maintenance, 01/21/23 9:32:00 EDT, Partial fill upon patient request if the prescription is for a schedule II opioid drug. Start Date: 01/21/23 Status: Ordered potassium chloride 20 mEq oral tablet, extended release 2 tablet = 40 mEq, By Mouth, 2 times a day, 0 Refills, Maintenance, 05/20/22 14:22:00 EDT, ER Tablet, Partial fill upon patient request if the prescription is for a schedule II opioid drug. Start Date: 05/20/22 Status: Ordered torsemide 20 mg oral tablet 2 tablet = 40 mg, By Mouth, Daily, # 180 tablet, 0 Refills, Maintenance, 08/03/22 12:07:00 EDT, Tablet, Partial fill upon patient request if the prescription is for a schedule II opioid drug. Start Date: 08/03/22 Stop Date: 09/28/23 Status: Ordered Vitamin B12 = 1,000 mcg, [...] Other: quit 1980s.; entered on: 03/01/18 Sex Cardiology * Event Display: Non Cardiovascular Results Authored Date: * Event Display: Cardiology Office Note, Non-BH Authored Date: * Event Display: Cardiology Office Note, Non-BH Authored Date: * Event Display: Non Cardiovascular Results Authored Date: * Event Display: Non Cardiovascular Results Authored Date: Patient Care team information Care Team Personnel Name: Jules WEATHERS MD, Rocco Chua Position: Reference Physician Member Role: PCP Address: Address: [address] [place] [id number] Name: Paul Gardner Position: [facility] Associate Professional Member Role: Lifetime Consulting Provider Address: Address: [address] [place] [address]- Name: Edwar Mckay MD Position: [facility] Renal MD Member Role: Lifetime Consulting Physician Address: Address: [address] [place] [address] [address] [facility], [place] [address]- Name: Kathy Simon RN Position: [facility] RN Member Role: Primary Care Nurse Care Team Related Persons Name: ASHWIN VINSON Address: home [address] [place] [address] Name: MIGUEL JUAN Address: home [address] Name: SAME, DEFAULTED
--- OUTSIDE RECORDS SUMMARY | 2024-02-21 08:21 | XMS_ITS | Continuity of Care Document ---
Author Organization [facility] Address [address] [place] [address]- Care Team Providers Care Big Data Engineer Name Role Phone Guru Tong MD Primary Care Physician [place] [facility] [place](s): 03/19/20 - 04/18/20 [facility] [address] [place] [address]- [facility] Attending Physician: Edgar Zhu Admitting Physician: AdmtrEdgar Referring Physician: Admtr, Ar8 Allergies, Adverse Reactions, Alerts Substance Reaction Severity Status NKA Active Immunizations Not Given Vaccine Date Status Refusal Reason [...] 11/30/18 Status: Ordered aspirin 81 mg oral tablet 1 tablet = 81 mg, By Mouth, Daily, 0 Refills, Maintenance, 01/04/18 9:35:15 Start Date: 01/04/18 Status: Ordered atorvastatin 40 mg oral tablet 1 tablet = 40 mg, By Mouth, Daily, # 90 tablet, 1 Refills, Maintenance, Route to Pharmacy Electronically, [id number], [facility]/pharmacy #[id number] Start Date: 05/16/18 Stop Date: 11/12/18 Status: Ordered Flomax 0.4 mg oral capsule 0.4 mg, 1, capsule, By Mouth, Daily, # 30 capsule, Refills 0, Tot. Refills 0, Maintenance, 02/21/1611:29:46, Route to Pharmacy Electronically, [id number], [facility]/pharmacy #[id number] Start Date: 02/22/16 Status: Ordered furosemide 20 mg oral tablet 20 mg, 1, tablet, By Mouth, Daily, # 30 tablet, Refills 0, Tot. Refills 0, Maintenance, 08/25/16 10:56:37, Route to Pharmacy Electronically, [id number], [facility]/pharmacy #[id number] Start Date: 08/25/16 Status: Ordered lisinopril 5 mg oral tablet 5 mg, 1, tablet, By Mouth, Daily, Pls keep follow up appt for more refills, # 90 tablet, Refills 1,Tot. Refills 1, Maintenance, 03/14/19 10:26:24 EDT, Route to Pharmacy Electronically, [id number], [facility]/pharmacy #[id number] Start Date: 03/14/19 Stop Date: 09/10/19 Status: Ordered metoprolol 25 mg oral tablet 25 mg, 1, tablet, By Mouth, 2 times a day, # 60 tablet, Refills 0, Tot. Refills 0, Maintenance, 02/22/16 11:22:06, Route to Pharmacy Electronically, [id number], [facility]/pharmacy#2339 Start Date: 02/22/16 Status: Ordered Vitamin B12 = 2,500 mcg, Daily, 0 Refills, Maintenance, 05/19/16 9:41:38 EDT Start Date: 05/19/16 Status: Ordered warfarin 2.5 mg oral tablet 1 tablet = 2.5 mg, By Mouth, Daily, d/c xarelto, # 30 tablet, 0 Refills, Maintenance, 06/05/18 10:28:53 EDT, Tablet Start Date: 06/05/18 Stop Date: 07/05/18 Status: Ordered Problem List Condition Effective Dates Status Health Status Inform ant Aortic stenosis(Confirmed) Active Atrial fibrillation on warfarin(Confirmed) Active HLD (hyperlipidemia)(Confirmed) Active HTN (hypertension)(Confirmed) Active PAD (peripheral artery disease)(Confirmed) Active Social History Social History Type Response Smoking Status Former smoker; Tobac co user in household: No; Other: quit .; entered on: 03/01/18 Sex
--- OUTSIDE RECORDS SUMMARY | 2024-02-21 08:21 | XMS_ITS | Continuity of Care Document ---
Author Organization [facility] Carlos ashley Address [address] [place] [address]- Care Team Providers Care Keeper Helper Name Role Phone Rocco Vicente III, MD Primary Care Physician Encounter [facility] [place] Date(s): 06/07/22 - 07/07/22 [facility] Cardiac Surgery [address] [place] [address]- Allergies, Adverse Reactions, Alerts No Known Allergies [...] 02/22/16 11:29:46 EDT, Route to Pharmacy Electronically, [facility]/pharmacy #[id number] Start Date: 02/22/16 Status: Ordered metolazone [...] Maintenance, 02/22/16 11:22:06, Route to Pharmacy Electronically, [id number], [facility]/pharmacy#2339 Start Date: 02/22/16 Status: Ordered [...] Name: Jules WEATHERS MD, Rocco Chua Address: [address] [place] [address]
--- OUTSIDE RECORDS SUMMARY | 2024-02-21 08:21 | XMS_ITS | Continuity of Care Document ---
Author Organization [facility] Address [address] [place] [address]- Care Team Providers Care Automation Test Engineer Name Role Phone Ran LOU, Guru Kathleen Primary Care Physician Encounter [place] Date(s): 12/09/20 - 01/08/21 [facility] [address] [place] [address]- Attending Physician: Edgar Zhu Admitting Physician: AdmEdgar bill Referring Physician: AdmtrEdgar Allergies, Adverse Reactions, Alerts Substance Reaction Severity [...] 1 Refills, Maintenance, Route to Pharmacy Electronically, [id number], [facility]/pharmacy #[id number] Start Date: 05/16/18 Stop Date: 11/12/18 Status: Ordered Flomax 0.4 mg oral capsule 0.4 mg, 1, capsule, By Mouth, Daily, # 30 capsule, Refills 0, Tot. Refills 0, Maintenance, 02/21/1611:29:46, Route to Pharmacy Electronically, [id number], [facility]/pharmacy #[id number] Start Date: 02/22/16 Status: Ordered furosemide 20 mg oral tablet 20 mg, 1, tablet, By Mouth, Daily, # 30 tablet, Refills 0, Tot. Refills 0, Maintenance, 08/25/16 10:56:37, Route to Pharmacy Electronically, [id number], [facility]/pharmacy #2339 Start Date: 08/25/16 Status: Ordered lisinopril 5 mg oral tablet 5 mg, 1, tablet, By Mouth, Daily, Pls keep follow up appt for more refills, # 90 tablet, Refills 1,Tot. Refills 1, Maintenance, 03/14/19 10:26:24 EDT, Route to Pharmacy Electronically, [id number], [facility]/pharmacy #[id number] Start Date: 03/14/19 Stop Date: 09/10/19 Status: Ordered metoprolol 25 mg oral tablet 25 mg, 1, tablet, By Mouth, 2 times a day, # 60 tablet, Refills 0, Tot. Refills 0, Maintenance, 02/22/16 11:22:06, Route to Pharmacy Electronically, [id number], [facility] Start Date: 02/22/16 Status: Ordered Vitamin B12 [...]
--- OUTSIDE RECORDS SUMMARY | 2024-02-21 08:21 | XMS_ITS | Continuity of Care Document ---
Author Organization [facility] Address [address] [place] [address]- Care Team Providers Care Black Jack Dealer Name Role Phone Jules WEATHERS MD, Rocco Chua Primary Care Physician Encounter [facility] R [id number] Date(s): 09/22/23 - 01/20/24 [facility] [address] [place] [id number] Attending Physician: Miguel Johnson NP Admitting Physician: Miguel Johnson NP Allergies, Adverse Reactions, Alerts No Known Allergies [...] Refills, Maintenance, 01/21/23 10:31:00 EDT, Tablet, [id number], Partial fill upon patient request if the [...] 02/22/16 11:29:46 EDT, Route to Pharmacy Electronically, [facility]/pharmacy #[id number] Start Date: 02/22/16 Status: Ordered metoprolol 25 mg oral tablet 25 mg, 1, tablet, By Mouth, 2 times a day, # 60 tablet, Refills 0, Tot. Refills 0, Maintenance, 02/22/16 11:22:06, Route to Pharmacy Electronically, [id number], [facility]/pharmacy#[id number] Start Date: 02/22/16 Status: Ordered [...] Reference Physician Member Role: PCP Address: Address: [address] [place] [address] Name: Paul Gardner Position: [facility] Associate Professional Member Role: Lifetime Consulting Provider Address: Address: [address] [place] [address] Name: Edwar Mckay MD Position: [facility] Renal MD Member Role: Lifetime Consulting Physician Address: Address: [address] [place] [address] [address] [facility] [address] Name: Kathy Simon RN Position: [facility] RN Member Role: Primary Care Nurse Care Team Related Persons Name: ASHWIN VINSON Address: home [address] [place] [id number] Name: MIGUEL JUAN Address: [place] [address] Name: SAME, DEFAULTED
--- OUTSIDE RECORDS SUMMARY | 2024-02-21 08:21 | XMS_ITS | Continuity of Care Document ---
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 Role Phone Not on Staff, PCP Primary Care Physician Unavail able [place] [facility] [place] - 03/27/21 [facility] [address] [place] [address]- Attending Physician: Neri GRAFF, Porsche John Admitting Physician: Neri GRAFF, Porsche John Referring Physician: Ran LOU, Guru Kathleen Allergies, Adverse Reactions, Alerts Substance Reaction Severity [...] 1 Refills, Maintenance, Route to Pharmacy Electronically, [id number], [facility]/pharmacy #[id number] Start Date: 05/16/18 Stop Date: 11/12/18 Status: Ordered Flomax 0.4 mg oral capsule 0.4 mg, 1, capsule, By Mouth, Daily, # 30 capsule, Refills 0, Tot. Refills 0, Maintenance, 02/21/1611:29:46, Route to Pharmacy Electronically, [id number], [facility]/pharmacy #[id number] Start Date: 02/22/16 Status: Ordered furosemide 20 mg oral tablet 20 mg, 1, tablet, By Mouth, Daily, # 30 tablet, Refills 0, Tot. Refills 0, Maintenance, 08/25/16 10:56:37, Route to Pharmacy Electronically, [id number], [facility]/pharmacy #[id number] Start Date: 08/25/16 Status: Ordered lisinopril 5 mg oral tablet 5 mg, 1, tablet, By Mouth, Daily, Pls keep follow up appt for more refills, # 90 tablet, Refills 1,Tot. Refills 1, Maintenance, 03/14/19 10:26:24 EDT, Route to Pharmacy Electronically, [id number], [facility]/pharmacy #[id number] Start Date: 03/14/19 Stop Date: 09/10/19 Status: Ordered metoprolol 25 mg oral tablet 25 mg, 1, tablet, By Mouth, 2 times a day, # 60 tablet, Refills 0, Tot. Refills 0, Maintenance, 02/22/16 11:22:06, Route to Pharmacy Electronically, [id number], [facility]/pharmacy#2339 Start Date: 02/22/16 Status: Ordered Vitamin B12 = 1,000 mcg, [...] (hypertension)(Confirmed) Active PAD (peripheral artery disease)(Confirmed) Active Vital Signs Most recent to oldest [Reference Range]: 1 Height 169 cm (03/20/21 8:28 AM) Weight 68.5 kg (03/20/21 8:28 AM) Pulse Rate [55-90 bpm] 64 bpm (03/20/21 8:28 AM) Body Mass Index [18.5-24.99] 23.98 (03/20/21 8:28 AM) Blood Pressure [90-138/55-84 mm Hg] 100/ 60mm Hg (03/20/21 8:28 AM) Blood pressure sites Arm, right (03/20/21 8:28 AM) Weight Obtained Via Patient/family state d (03/20/21 8:28 AM) Social History Social History Type Response Smoking Status Former smoker; Tobac co user in household: No; Other: quit 1980s.; entered on: 03/01/18 Sex
--- OUTSIDE RECORDS SUMMARY | 2024-02-21 08:21 | XMS_ITS | Continuity of Care Document ---
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 Refills 0, Maintenance, 02/22/16 11:22:06, Route to Pharmacy Electronically, [id number], [facility]/pharmacy#2339 Start Date: 02/22/16 Status: Ordered Norvasc [...] Team Personnel Name: Chidi Kyle RN Position: [facility] RN Supv Member Role: Primary Care Nurse Name: Ashley Sam Position: [facility] RN Member Role: Primary Care Nurse Name: Rocco Vicente III, MD Position: [facility] Ambulatory (view) Member Role: PCP Address: Address: [address] [place] [address] Name: Ragini Greco Position: S RN Member Role: Primary Care Nurse Name: Yudi Marshall RN Position: [facility] RN Supv Member Role: Primary Care Nurse Name: Paul Gardner Position: [facility] Associate Professional Member Role: Lifetime Consulting Provider Address: Address: [address] [place] [address] Name: Edwar Mckay MD Position: [facility] Renal MD Member Role: Lifetime Consulting Physician Address: Address: [address] [place] [address] [address] [facility] [address] Name: Kathy Simon RN Position: [facility] RN Member Role: Primary Care Nurse Care Team Related Persons Name: ASHWIN VINSON Address: home [address] [place] [address] Name: MIGUEL JUAN Address: [place] [address] Name: SAME, DEFAULTED
--- OUTSIDE RECORDS SUMMARY | 2024-02-21 08:21 | XMS_ITS | Continuity of Care Document ---
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 Role Phone Jules WEATHERS MD, Rocco Chua Primary Care Physician Encounter [facility] [place] Date(s): 08/28/21 - 03/21/22 [facility] [address] [place] [id number] Attending Physician: Neri GRAFF, Porsche John Admitting Physician: Neri GRAFF, Porsche John Referring Physician: Neri GRAFF, Porsche John Allergies, Adverse Reactions, Alerts No Known Allergies Immunizations Not Given Vaccine Date Status Refusal [...] 13:15:36 EST Start Date: 11/30/18 Status: Ordered atorvastatin 40 mg oral tablet 1 tablet = 40 mg, By Mouth, Daily, # 90 tablet, 1 Refills, Maintenance, Route to Pharmacy Electronically, [id number], [facility]/pharmacy #[id number] Start Date: 05/16/18 Stop Date: 11/12/18 Status: Ordered Flomax 0.4 mg oral capsule 0.4 mg, 1, capsule, By Mouth, Daily, # 30 capsule, Refills 0, Tot. Refills 0, Maintenance, 02/21/1611:29:46, Route to Pharmacy Electronically, [id number], [id number] Start Date: 02/22/16 Status: Ordered furosemide 20 mg oral tablet 20 mg, 1, tablet, By Mouth, Daily, # 30 tablet, Refills 0, Tot. Refills 0, Maintenance, 08/25/16 10:56:37, Route to Pharmacy Electronically, [id number], [id number] Start Date: 08/25/16 Status: Ordered lisinopril 5 mg oral tablet 5 mg, 1, tablet, By Mouth, Daily, Pls keep follow up appt for more refills, # 90 tablet, Refills 1,Tot. Refills 1, Maintenance, 03/14/19 10:26:24 EDT, Route to Pharmacy Electronically, [id number], [id number] Start Date: 03/14/19 Stop Date: 09/10/19 Status: Ordered metoprolol 25 mg oral tablet 25 mg, 1, tablet, By Mouth, 2 times a day, # 60 tablet, Refills 0, Tot. Refills 0, Maintenance, 02/22/16 11:22:06, Route to Pharmacy Electronically, [id number], [facility] Start Date: 02/22/16 Status: Ordered Vitamin [...]
--- OUTSIDE RECORDS SUMMARY | 2024-02-21 08:21 | XMS_ITS | Continuity of Care Document ---
Author Organization [facility] ashley Address [address] [place] [address]- Care Team Providers Care Director Of Distribution Name Role Phone Rocco Vicente III, MD Primary Care Physician [place] [facility] [place] - 06/23/22 [facility] [address] [place] [address]- Allergies, Adverse Reactions, Alerts No Known Allergies [...] 02/22/16 11:29:46 EDT, Route to Pharmacy Electronically, [facility]/pharmacy #[id number] Start Date: 02/22/16 Status: Ordered [...] Maintenance, 02/22/16 11:22:06, Route to Pharmacy Electronically, [id number], [facility]/pharmacy#[id number] Start Date: 02/22/16 Status: Ordered Norvasc [...] Name: Jules WEATHERS MD, Rocco Chua Address: [address] [place] [id number]
--- OUTSIDE RECORDS SUMMARY | 2024-02-21 08:21 | XMS_ITS | Continuity of Care Document ---
Author Organization [facility] ter Address [address] [place] [id number]- Care Team Providers Care Chief Sustainability Officer Name Role Phone Jules WEATHERS MD, Rocco Chua Primary Care Phys[place] [facility] [place] 05/[place]/[address] [address] Discharge Disposition: A-D/C Home Attending Physician: Isaías Zaragoza MD Admitting Physician: Isaías Zaragoza MD Referring Physician: Julien Wise MD Allergies, Adverse Reactions, Alerts No Known [...] 02/22/16 11:29:46 EDT, Route to Pharmacy Electronically, [facility]/pharmacy #[id number] Start Date: 02/22/16 Status: Ordered levoFLOXacin 750 mg oral tablet 1 tablet = 750 mg, By Mouth, Every 24 hours, for 7 days, # 7 tablet, 0 Refills, Acute 05/27/22 14:24:00 EDT, 05/20/22 14:24:00 EDT, Tablet, Partial fill upon patient request if the prescription is for a schedule II opioid drug. Start Date: 05/20/22 Stop Date: 05/27/22 Status: Ordered metoprolol 25 mg oral tablet 25 mg, Tablet, By Mouth, 05/20/22 9:00:00 EDT Start Date: 05/20/22 Stop Date: 05/20/22 Status: Completed metoprolol 25 mg oral tablet 25 mg, 1, tablet, By Mouth, 2 times a day, # 60 tablet, Refills 0, Tot. Refills 0, Maintenance, 02/22/16 11:22:06, Route to Pharmacy Electronically, [id number], [facility]/pharmacy#[id number] Start Date: 02/22/16 Status: Ordered Norvasc 5 mg oral tablet 5 mg, 1, tablet, By Mouth, Daily, Refills 0, Maintenance, 05/20/22 14:21:00 EDT, Partial fill upon patient request if the prescription is for a schedule II opioid drug. Start Date: 05/20/22 Status: Ordered Norvasc 5 mg oral tablet 5 mg, Tablet, By Mouth, Hold for: SBP < 110, 05/20/22 9:00:00 EDT Start Date: 05/20/22 Stop Date: 05/20/22 Status: Completed potassium chloride 20 mEq oral tablet, extended release 2 tablet = 40 mEq, By Mouth, Daily, 0 Refills, Maintenance, 05/20/22 14:22:00 EDT, ER Tablet, Partial fill upon patient request if the prescription is for a schedule II opioid drug. Start Date: 05/20/22 Status: Ordered torsemide 20 mg oral tablet 2 tablet = 40 mg, By Mouth, Daily, 0 Refills, Maintenance, 05/20/22 14:22:00 EDT, Tablet, [...] (hypertension)(Confirmed) Active PAD (peripheral artery disease)(Confirmed) Active Results Orders for Microbiology Reports Name Date Sputum Culture w/ Gram Smear 05/19/22 Sputum Culture w/ Gram Smear 05/16/22 Microbiology Reports TEST:Sputum Culture STATUS:Unauthenticated BODY SITE: SOURCE:EXPECT COLLECTED DATE/TIME:05/19/22 10:45 AM Sputum Culture SPECIMEN DESCRIPTION : EXPECTORATED SPUTUM SPECIAL REQUESTS : NONE GRAM STAIN : 4+ POLYMORPHONUCLEAR LEUKOCYTES 1+ GRAM POSITIVE COCCI CULTURE : NORMAL SO FAR REPORT STATUS : PRELIMINARY REPORT TEST:Sputum Culture STATUS:Modified/Amended/Corrected BODY SITE: SOURCE:EXPECT COLLECTED DATE/TIME:05/16/22 9:13 PM Sputum Culture SPECIMEN DESCRIPTION : EXPECTORATED SPUTUM SPECIAL REQUESTS : NONE GRAM STAIN : 3+ SQ.EPITHELIAL CELLS 1+ GRAM NEGATIVE RODS CULTURE : MICROSCOPIC EXAM SHOWS SQUAMOUS EPITHELIAL CELLS INDICATIVE OF OROPHARYNGEAL CONTAMINATION. PLEASE RECOLLECT APPROPRIATE SPECIMEN FOR CULTURE IF CLINICALLY INDICATED. UPON FURTHER REVIEW THE CULTURE IS GROWING 4+ PSEUDOMONAS AERUGINOSA This isolate was identified using Maldi-TOF system These AST results were performed on the Outcome Referralscan ID and AST system REPORT STATUS : FINAL 05/19/2022 ORGANISM 4+ PSEUDOMONAS AERUGINOSA This isolate was identified using Maldi-TOF system These AST results were performed on the Microscan ID and AST system METHOD MIN. INHIB. CONC. (MCG/ML) CEFEPIME SUSCEPTIBLE CEFTAZIDIME SUSCEPTIBLE CIPROFLOXACIN SUSCEPTIBLE GENTAMICIN SUSCEPTIBLE LEVOFLOXACIN SUSCEPTIBLE MEROPENEM SUSCEPTIBLE PIPERACILLIN/TAZOBAC SUSCEPTIBLE Radiology Reports (Most Recent Ten) * Exam Date Time Procedure Performing Provider Status 05/20/22 6:12 AM Chest Portable Yolette Thompson; Auth ( Verified) Notes: (Chest Portable) Reason For Exam: Follow-Up Pleural Effusion RESULT: Chest Portable Chest Portable Reason: Follow-Up Pleural Effusion; Clinical Question(s): Aspiration COMPARISON: 05/19/2022 FINDINGS: No change in left basilar pleural-parenchymal disease. Slight increase in right basilar pleural-parenchymal disease. IMPRESSION: Slight interval increase in right basilar pleural-parenchymal disease. Stable left pleural-parenchymal disease WSN: [id number] Ordering Physician: Ainsley Feliciano Dictated By: Leandro Samuel MD Dictated Date/Time: 05/20/22 8:20 am Reviewed By: Leandro Samuel MD Signed By: Leandro Samuel MD Signed Date/Time: 05/20/22 8:20 am Transcribed By: JAZMIN Transcribed Date/Time: 05/20/22 8:19 am * Exam Date Time Procedure Performing Provider Status 05/19/22 11:23 AM Chest Portable Rasheeda Stewart; Auth (V erified) Notes: (Chest Portable) Reason For Exam: Follow-Up Pleural Effusion RESULT: Chest Portable Chest Portable Reason: Follow-Up Pleural Effusion; Clinical Question(s): Pneumonia COMPARISON: 05/18/2022 FINDINGS: New groundglass and airspace disease at the right lung base with mild right basilar consolidation IMPRESSION: Groundglass and airspace disease at the right lung base with mild right basilar consolidation. Finding could be secondary to a small pleural effusion with associated atelectasis. Pneumonia and aspiration pneumonitis in the right lower lobe are also diagnostic considerations. WSN: [id number] Ordering Physician: Ainsley Feliciano Dictated By: Leandro Samuel MD Dictated Date/Time: 05/19/22 12:23 p Reviewed By: Leandro Samuel MD Signed By: Leandro Samuel MD Signed Date/Time: 05/19/22 12:23 pm Transcribed By: AJZMIN Transcribed Date/Time: 05/19/22 12:21 pm * Exam Date Time Procedure Performing Provider Status 05/18/22 6:03 AM Chest Portable Nisa Milton; Auth (Verified) Notes: (Chest Portable) Reason For Exam: S/P Cardiac Surgery;hypoxemia RESULT: Chest Portable Chest Portable Reason: S P Cardiac Surgery; hypoxemia; Clinical Question(s): Postop COMPARISON: Multiple prior examinations the most recent dated 05/17/2022 at 5:56 AM. FINDINGS: LINES AND TUBES: Left atrial appendage clip in place unchanged. LUNGS AND PLEURA: Improving aeration both lung bases. Normal pulmonary vascularity. There may be a small calcified plaque involving the left hemidiaphragm essentially unchanged. Probable small bilateral pleural effusions unchanged. No pneumothorax. HEART, MEDIASTINUM AND TUNDE: 1 cardiomegaly unchanged. Possible aortic valve replacement. Normal upper mediastinal and hilar contour. Status post median sternotomy. BONES AND SOFT TISSUES: No acute abnormality. Gotebo sutures left humeral head. IMPRESSION: Slight improvement in aeration involving both lung bases. WSN: [id number] Ordering Physician: Valarie Peraza Dictated By: Mathew Awad MD, V Dictated Date/Time: 05/18/22 8:52 am Reviewed By: Mathew Awad MD, V Signed By: Mathew Awad MD, V Signed Date/Time: 05/18/22 8:52 am Transcribed By: JAZMIN Transcribed Date/Time: 05/18/22 8:47 am * Exam Date Time Procedure Performing Provider Status 05/17/22 6:42 AM Chest Portable Kathy Ronquillo; Auth (Ve rified) Notes: (Chest Portable) Reason For Exam: S/P Cardiac Surgery;hypoxemia RESULT: Chest Portable Examination: Portable chest performed on 05/17/2022 at 5:56 AM. History: Status post cardiac surgery. Findings: A frontal view of the chest is compared to a study dated 05/16/2022. Sternotomy wires are intact. Valve replacement and left atrial appendage clip are redemonstrated. There is stable enlargement of the cardiac silhouette. Bilateral pleural effusions are unchanged. The osseous structures are intact. IMPRESSION: There is no interval change from the prior study. WSN: [id number] Ordering Physician: Valarie Peraza Dictated By: Jacey Matson MD Dictated Date/Time: 05/17/22 8:19 am Reviewed By: Jacey Matson MD Signed By: Jacey Matson MD Signed Date/Time: 05/17/22 8:19 am Transcribed By: JAZMIN Transcribed Date/Time: 05/17/22 8:16 am * Exam Date Time Procedure Performing Provider Status 05/16/22 4:33 AM Chest Portable Wenceslao Jarrett; Auth (Verified) Notes: (Chest Portable) Reason For Exam: S/P Cardiac Surgery;hypoxemia RESULT: Chest Portable Chest Portable performed upright at 4:04 AM Reason: S P Cardiac Surgery; hypoxemia; Clinical Question(s): Postop COMPARISON: Multiple prior chest x-rays, the most recent of which is dated 05/15/2022. CT of the chest dated 05/15/2022. FINDINGS: LINES AND TUBES: There is a right IJ central venous sheath. LUNGS AND PLEURA: Blunting of the right costophrenic angle is seen. There is hazy opacity in the right mid to lower lung likely reflecting layering of the dural effusion and adjacent atelectasis. Improving atelectasisin the left lung base. No significant left pleural effusion. No pneumothorax. HEART, MEDIASTINUM AND TUNDE: The patient is status post median sternotomy, valve replacement and left atrial clipping. The cardiac silhouette and mediastinal contours appear within normal limits for the postoperative state. BONES AND SOFT TISSUES: No acute bony abnormality. Gaseous distention of colon in the upper abdomen. IMPRESSION: Bibasilar atelectasis, improving on the left with no change in small right pleural effusion. WSN: [id number] Ordering Physician: Valarie Peraza Dictated By: Morena Bishop MD Dictated Date/Time: 05/16/22 9:56 am Reviewed By: Morena Bishop MD Signed By: Morena Bishop MD Signed Date/Time: 05/16/22 9:56 am Transcribed By: JAZMIN Transcribed Date/Time: 05/16/22 9:54 am * Exam Date Time Procedure Performing Provider Status 05/15/22 6:24 AM Chest Portable Yolette Thompson; Auth (Verified) Notes: (Chest Portable) Reason For Exam: hypoxemia;S/P Cardiac Surgery RESULT: Chest Portable Chest Portable performed upright at 5:16 AM Reason: S P Cardiac Surgery; hypoxemia; Clinical Question(s): Postop COMPARISON: Multiple prior chest x-rays, the most recent of which is dated 05/14/2022. FINDINGS: LINES AND TUBES: Right IJ central venous sheath remains with interval removal of the Bradfordwoods-Alysha catheter. LUNGS AND PLEURA: There is a small right and trace left pleural effusion. Improving aeration of the left lung base isseen. Unchanged opacity in the right lung base. Linear density at the right lung apex likely reflects atelectasis. No pneumothorax. HEART, MEDIASTINUM AND TUNDE: The patient's hand partially obscures visualization of the cardiomediastinal silhouette. The patient is status post median sternotomy. Mild calcification is seen in the region of the aortic arch. BONES AND SOFT TISSUES: No acute bony abnormality. Surgical anchors are seen in the left humeral head. IMPRESSION: 1. Support devices as above. 2. Small bilateral pleural effusions, right greater than left with adjacent densities likely reflecting atelectasis. On the left, this appears partially improved. WSN: [id number] Ordering Physician: Fred Wilson Dictated By: Morena Bishop MD Dictated Date/Time: 05/15/22 8:33 am Reviewed By: Morena Bishop MD Signed By: Morena Bishop MD Signed Date/Time: 05/15/22 8:33 am Transcribed By: JAZMIN Transcribed Date/Time: 05/15/22 8:31 am * Exam Date Time Procedure Performing Provider Status 05/14/22 8:18 AM Chest Portable Quinn Fletcher; Auth (Kimberlee ified) Notes: (Chest Portable) Reason For Exam: S/P Cardiac Surgery RESULT: Chest Portable Chest Portable Reason: S P Cardiac Surgery; Clinical Question(s): Pleural Effusion COMPARISON: Multiple prior chest x-rays, the most recent of which is dated yesterday. FINDINGS: LINES AND TUBES: Bradfordwoods-Alysha catheter is projected over the right pulmonary artery. LUNGS AND PLEURA: Low lung volumes with improved aeration in the right lung and left apex. Improving bilateral pleural effusions. No pneumothorax. HEART, MEDIASTINUM AND TUNDE: Mild prominence of the cardiac silhouette, unchanged. Atrial appendage clip. Mitral valve replacement. Normal upper mediastinal and hilar contour. BONES AND SOFT TISSUES: Prior median sternotomy. IMPRESSION: Appropriate supportive position. Improved aeration of the right lung and left apex. Improving bilateral pleural effusions. I have personally reviewed the images and I agree with this report. WSN: [id number] Ordering Physician: Mathew Watkins Dictated By: Jailene Puente MD Dictated Date/Time: 05/14/22 10:44 a Reviewed By: Mathew Awad MD, V Signed By: Mathew Awad MD, V Signed Date/Time: 05/14/22 10:49 am Transcribed By: JAZMIN Transcribed Date/Time: 05/14/22 10:29 am * Exam Date Time Procedure Performing Provider Status 05/13/22 9:34 PM Chest Portable Abebe Stringer ( Verified) Notes: (Chest Portable) Reason For Exam: Cough RESULT: Chest Portable Chest Portable Reason: Cough COMPARISON: 05/12/2022 FINDINGS: LINES AND TUBES: Endotracheal tube and enteric tube have been removed. Bradfordwoods-Alysha catheter tip in good position. Probable atrial appendage clip. LUNGS AND PLEURA: There are bilateral pleural effusions. Left effusion appears increased compared to previous examination. This may be adjacent atelectasis or pneumonia. No pneumothorax. HEART, MEDIASTINUM AND TUNDE: Heart is normal in size. Normal upper mediastinal and hilar contour. BONES AND SOFT TISSUES: No acute abnormality. IMPRESSION: Worsening left/possibly bilateral opacities suggesting pleural effusions and atelectasis versus pneumonia. WSN: [id number] Ordering Physician: Silvana Carney Dictated By: Mk Fleming MD Dictated Date/Time: 05/13/22 9:40 pm Reviewed By: Mk Fleming MD Signed By: Mk Fleming MD Signed Date/Time: 05/13/22 9:40 pm Transcribed By: JAZMIN Transcribed Date/Time: 05/13/22 9:38 pm * Exam Date Time Procedure Performing Provider Status 05/12/22 7:59 AM Chest Portable Alessandro Burns (V erified) Notes: (Chest Portable) Reason For Exam: advanced ET tube 3cm, OG tube;Tube Placement RESULT: Chest Portable AP semiupright portable chest dated April 20172021 at 0755 hours. An films are from earlier in the day at 0412 hours and May 11, 2022. HISTORY: Tube placement. FINDINGS: The cardiac silhouette is enlarged. An endotracheal tube is present with its tip 3.3 cm proximal to the juan miguel. A nasogastric tube exists the film into the left upper quadrant. A Bradfordwoods-Alysha catheter is present from the right. Using a jugular approach, the tip of the catheter overlies the distal aspect of the pulmonary outflow tract. A mediastinal drain is present. There is increased attenuation the lung bases left greater than right consistent with atelectasis, pneumonia, pleural effusion, or any combination. Patient is status post median sternotomy and valvular replacement. IMPRESSION: No significant interval change. Examination [id number]. Thank you for allowing me to participate in the care of this patient. WSN: [id number] Ordering Physician: Ainsley Feliciano Dictated By: Kg Martinez MD Dictated Date/Time: 05/12/22 12:01 p Reviewed By: Kg Martinez MD Signed By: Kg Martinez MD Signed Date/Time: 05/12/22 12:01 pm Transcribed By: JAZMIN Transcribed Date/Time: 05/12/22 11:56 am * Exam Date Time Procedure Performing Provider Status 05/12/22 4:27 AM Chest Portable Ronnie Milton (Verified) Notes: (Chest Portable) Reason For Exam: S/P Cardiac Surgery RESULT: Chest Portable Chest Portable Reason: S P Cardiac Surgery; Clinical Question(s): Other:; Cardiac Tamponade; Special Instructions:Post Op Day 1 COMPARISON: 05/11/2022 FINDINGS: LINES AND TUBES: Endotracheal tube is at the level of the clavicle. Tip and sidehole of the NG tube are not visualized likely are within the stomach. There is a right Bradfordwoods- Alysha catheter with its tip in the right pulmonary artery. LUNGS AND PLEURA: There is increased opacity within the lung bases there is evidence of pleural calcification in the left lower lobe over the diaphragm. No pleural effusion. No pneumothorax. HEART, MEDIASTINUM AND TUNDE: Patient is status post median sternotomy with aortic valve replacement. Cardiomediastinal silhouette is stable as compared to the previous exam. Normal upper mediastinal and hilar contour. BONES AND SOFT TISSUES: No acute abnormality. IMPRESSION: Bibasilar atelectasis and/or pneumonia in the right clinical setting. WSN: [id number] Ordering Physician: Sunil Jasso Dictated By: Diana Montoya MD Dictated Date/Time: 05/12/22 8:08 am Reviewed By: Diana Montoya MD Signed By: Diana Montoya MD Signed Date/Time: 05/12/22 8:08 am Transcribed By: JAZMIN Transcribed Date/Time: 05/12/22 8:03 am Vital Signs Most recent to oldest [Reference Range]: 1 2 3 Height 169 cm (05/20/22 4:44 AM) 169 cm (05/19/22 11:58 PM) 169 cm (05/19/22 8:16 PM) Weight 77.5 kg (05/20/22 4:45 AM) 77.2 kg (05/19/22 6:58 AM) 77.4 kg (05/18/22 4:00 AM) Oxygen Saturation [94-100 %] 95 % (05/20/22 4:00 PM) 92 % *L* (05/20/22 11:00 AM) 92 % *L* (05/20/22 7:00 AM) Pulse Rate [55-90 bpm] 106 bpm *H* (05/20/22 4:00 PM) 92 bpm *H* (05/20/22 11:00 AM) 86 bpm (05/20/22 8:12 AM) Body Mass Index [18.5-24.99] 25.21 *H* (05/11/22 6:48 AM) 24.91 (05/11/22 5:45 AM) 25.05 *H* (05/10/22 12:40 PM) Blood Pressure [90-138/55-84 mm Hg] 112/67mm Hg (05/20/22 4:00 PM) 114/65mm Hg (05/20/22 11:00 AM) 127/51mm Hg (05/20/22 8:13 AM) Respiratory Rate [16-30 br/min] 18 br/min (05/20/22 4:00 PM) 18 br/min (05/20/22 11:00 AM) 18 br/min (05/20/22 7:00 AM) Temperature [96.8-100.4 DegF] 98.1 DegF (05/20/22 4:00 PM) 98.0 DegF (05/20/22 11:00 AM) 98.6 DegF (05/20/22 7:00 AM) Liters per Minute 2 L/min (05/20/22 7:00 AM) 2 L/min (05/20/22 4:44 AM) 2 L/min (05/19/22 11:58 PM) Mode of Delivery (Oxygen) Room air (05/20/22 4:00 PM) Room air (05/20/22 11:00 AM) Nasal cannula (05/20/22 7:00 AM) Blood pressure sites Arm, right (05/20/22 4:00 PM) Arm, right (05/20/22 11:00 AM) Arm, right (05/20/22 7:00 AM) Temperature Route Oral (05/20/22 4:00 PM) Oral (05/20/22 11:00 AM) Oral (05/20/22 7:00 AM) Dry Weight 72 kg (05/11/22 6:48 AM) 72.4 kg (05/10/22 12:40 PM) Weight Obtained Via Bed scale (05/20/22 4:45 AM) Bed scale (05/19/22 6:58 AM) Bed scale (05/18/22 4:00 AM) Dry Weight Obtained Via Standing scale (05/11/22 6:48 AM) Standing scale (05/10/22 12:40 PM) Social History Social History Type Response Smoking Status Former smoker; Tobac co user in household: No; Other: quit 1980s.; entered on: 03/01/18 Sex
--- OUTSIDE RECORDS SUMMARY | 2024-02-21 08:21 | XMS_ITS | Continuity of Care Document ---
Author Organization [facility] ter Address [address] [place] [address]- Care Team Providers Care Radio Repairer Name Role Phone Jules WEATHERS MD, Rocco Chua Primary Care Physician Encounter [facility] [place] Date(s): 03/19/22 - 03/19/[address] [address]- Encounter Diagnosis Urticaria(Final) - 03/19/22 Discharge Disposition: A-D/C Home Attending Physician: Shasta Del Rio MD Admitting Physician: Shasta Del Rio MD Referring Physician: Not on Staff, Referring MD Allergies, Adverse Reactions, Alerts No Known [...] 1 Refills, Maintenance, Route to Pharmacy Electronically, [id number], [facility]/pharmacy #[id number] Start Date: 05/16/18 Stop Date: 11/12/18 Status: Ordered Flomax 0.4 mg oral capsule 0.4 mg, 1, capsule, By Mouth, Daily, # 30 capsule, Refills 0, Tot. Refills 0, Maintenance, 02/21/1611:29:46, Route to Pharmacy Electronically, [id number], [facility]/pharmacy #[id number] Start Date: 02/22/16 Status: Ordered furosemide 20 mg oral tablet 20 mg, 1, tablet, By Mouth, Daily, # 30 tablet, Refills 0, Tot. Refills 0, Maintenance, 08/25/16 10:56:37, Route to Pharmacy Electronically, [id number], [facility]/pharmacy #[id number] Start Date: 08/25/16 Status: Ordered lisinopril 5 mg oral tablet 5 mg, 1, tablet, By Mouth, Daily, Pls keep follow up appt for more refills, # 90 tablet, Refills 1,Tot. Refills 1, Maintenance, 03/14/19 10:26:24 EDT, Route to Pharmacy Electronically, [id number], [id number] Start Date: 03/14/19 Stop Date: 09/10/19 Status: Ordered metoprolol 25 mg oral tablet 25 mg, 1, tablet, By Mouth, 2 times a day, # 60 tablet, Refills 0, Tot. Refills 0, Maintenance, 02/22/16 11:22:06, Route to Pharmacy Electronically, [id number], [id number] Start Date: 02/22/16 Status: Ordered Vitamin [...] to oldest [Reference Range]: 1 2 3 Oxygen Saturation [94-100 %] 98 % (03/19/22 7:25 AM) 97 % (03/19/22 6:40 AM) 100 % (03/19/22 6:37 AM) Pulse Rate [55-90 bpm] 67 bpm (03/19/22 7:25 AM) 92 bpm *H* (03/19/22 6:40 AM) 81 bpm (03/19/22 6:37 AM) Blood Pressure [90-138/55-84 mm Hg] 156/67mm Hg *H* (03/19/22 7:25 AM) 127/64mm Hg (03/19/22 6:40 AM) Respiratory Rate [16-30 br/min] 18 br/min (03/19/22 7:25 AM) 16 br/min (03/19/22 6:40 AM) 16 br/min (03/19/22 6:37 AM) Temperature [96.8-100.4 DegF] 97.7 DegF (03/19/22 7:25 AM) 97.9 DegF (03/19/22 6:40 AM) Mode of Delivery (Oxygen) Room air (03/19/22 7:25 AM) Room air (03/19/22 6:40 AM) Blood pressure sites Arm, right (03/19/22 6:40 AM) Temperature Route Oral (03/19/22 7:25 AM) Oral (03/19/22 6:40 AM) Social History Social History Type Response Smoking Status Former smoker; Tobac co user in household: No; Other: quit 1980s.; entered on: 03/01/18 Sex
--- OUTSIDE RECORDS SUMMARY | 2024-02-21 08:21 | XMS_ITS | Continuity of Care Document ---
Author Organization [facility] Address [address] [place] [address]- Care Team Providers Care Barmaid Name Role Phone Jules WEATHERS MD, Rocco Chua Primary Care Physician En[place] [facility] [place] Date(s): 11/26/21 - 03/26/22 [facility] [address] [place] [address]- Attending Physician: Not on Staff, Attending MD Referring Physician: Ran LOU, Guru Kathleen Allergies, Adverse Reactions, Alerts No Known Allergies [...] 1 Refills, Maintenance, Route to Pharmacy Electronically, [id number], [facility]/pharmacy #[id number] Start Date: 05/16/18 Stop Date: 11/12/18 Status: Ordered Flomax 0.4 mg oral capsule 0.4 mg, 1, capsule, By Mouth, Daily, # 30 capsule, Refills 0, Tot. Refills 0, Maintenance, 02/21/1611:29:46, Route to Pharmacy Electronically, [id number], [facility]/pharmacy #[id number] Start Date: 02/22/16 Status: Ordered furosemide 20 mg oral tablet 20 mg, 1, tablet, By Mouth, Daily, # 30 tablet, Refills 0, Tot. Refills 0, Maintenance, 08/25/16 10:56:37, Route to Pharmacy Electronically, [id number], [facility]/pharmacy #[id number] Start Date: 08/25/16 Status: Ordered lisinopril 5 mg oral tablet 5 mg, 1, tablet, By Mouth, Daily, Pls keep follow up appt for more refills, # 90 tablet, Refills 1,Tot. Refills 1, Maintenance, 03/14/19 10:26:24 EDT, Route to Pharmacy Electronically, [id number], [id number] Start Date: 03/14/19 Stop Date: 09/10/19 Status: Ordered metoprolol 25 mg oral tablet 25 mg, 1, tablet, By Mouth, 2 times a day, # 60 tablet, Refills 0, Tot. Refills 0, Maintenance, 02/22/16 11:22:06, Route to Pharmacy Electronically, [id number], [facility] Start Date: 02/22/16 Status: Ordered Vitamin B12 [...]
--- OUTSIDE RECORDS SUMMARY | 2024-02-21 08:21 | XMS_ITS | Continuity of Care Document ---
Author Organization [facility] Address [address] [place] [address]- Care Team Providers Care Railroad Watchman Name Role Phone Jules WEATHERS MD, Rocco Chua Primary Care Physician [phone] Encounter [facility] Date(s): 11/26/21 - 12/26/21 [facility] [address] [place] [address]- [place] Allergies, Adverse Reactions, Alerts No Known [...] 1 Refills, Maintenance, Route to Pharmacy Electronically, [id number], [facility]/pharmacy #[id number] Start Date: 05/16/18 Stop Date: 11/12/18 Status: Ordered Flomax 0.4 mg oral capsule 0.4 mg, 1, capsule, By Mouth, Daily, # 30 capsule, Refills 0, Tot. Refills 0, Maintenance, 02/21/1611:29:46, Route to Pharmacy Electronically, [id number], [facility]/pharmacy #2339 Start Date: 02/22/16 Status: Ordered furosemide 20 mg oral tablet 20 mg, 1, tablet, By Mouth, Daily, # 30 tablet, Refills 0, Tot. Refills 0, Maintenance, 08/25/16 10:56:37, Route to Pharmacy Electronically, [id number], [facility]/pharmacy #2339 Start Date: 08/25/16 Status: Ordered lisinopril 5 mg oral tablet 5 mg, 1, tablet, By Mouth, Daily, Pls keep follow up appt for more refills, # 90 tablet, Refills 1,Tot. Refills 1, Maintenance, 03/14/19 10:26:24 EDT, Route to Pharmacy Electronically, [id number], [facility]/pharmacy #2339 Start Date: 03/14/19 Stop Date: 09/10/19 Status: Ordered metoprolol 25 mg oral tablet 25 mg, 1, tablet, By Mouth, 2 times a day, # 60 tablet, Refills 0, Tot. Refills 0, Maintenance, 02/22/16 11:22:06, Route to Pharmacy Electronically, [id number], [facility]/pharmacy#2339 Start Date: 02/22/16 Status: Ordered Vitamin B12 [...]
--- OUTSIDE RECORDS SUMMARY | 2024-02-21 08:22 | XMS_ITS | Continuity of Care Document ---
Author Organization [facility] Address [address] [place] [address]- Care Team Providers Care Structural Architect Name Role Phone Ran LOU, Guru Kathleen Primary Care Physician Encounter [facility] [place] Date(s): 02/20/21 - 03/22/21 [facility] [address] [place] [address]- Allergies, Adverse Reactions, Alerts Substance Reaction Severity [...] 1 Refills, Maintenance, Route to Pharmacy Electronically, [id number], [facility]/pharmacy #[id number] Start Date: 05/16/18 Stop Date: 11/12/18 Status: Ordered Flomax 0.4 mg oral capsule 0.4 mg, 1, capsule, By Mouth, Daily, # 30 capsule, Refills 0, Tot. Refills 0, Maintenance, 02/21/1611:29:46, Route to Pharmacy Electronically, [id number], [facility] Start Date: 02/22/16 Status: Ordered furosemide 20 mg oral tablet 20 mg, 1, tablet, By Mouth, Daily, # 30 tablet, Refills 0, Tot. Refills 0, Maintenance, 08/25/16 10:56:37, Route to Pharmacy Electronically, [id number], [facility] Start Date: 08/25/16 Status: Ordered lisinopril 5 mg oral tablet 5 mg, 1, tablet, By Mouth, Daily, Pls keep follow up appt for more refills, # 90 tablet, Refills 1,Tot. Refills 1, Maintenance, 03/14/19 10:26:24 EDT, Route to Pharmacy Electronically, [id number], [facility] Start Date: 03/14/19 Stop Date: 09/10/19 Status: Ordered metoprolol 25 mg oral tablet 25 mg, 1, tablet, By Mouth, 2 times a day, # 60 tablet, Refills 0, Tot. Refills 0, Maintenance, 02/22/16 11:22:06, Route to Pharmacy Electronically, [id number], [facility] Start Date: 02/22/16 Status: Ordered Vitamin B12 [...]
--- OUTSIDE RECORDS SUMMARY | 2024-02-21 08:22 | XMS_ITS | Continuity of Care Document ---
Author Organization [facility] Address [address] [place] [address]- Care Team Providers Care Head Housekeeper Name Role Phone Jonah LOU, Justice Luciano Primary Care Physician U navailable Encounter [facility] Date(s): 05/04/21 - 06/05/21 [facility] [address] [place] [address]- Attending Physician: Francisco J Sher MD Admitting Physician: Francisco J Sher MD Allergies, Adverse Reactions, Alerts Substance Reaction Severity [...] 1 Refills, Maintenance, Route to Pharmacy Electronically, [id number], [facility]/pharmacy #6700 Start Date: 05/16/18 Stop Date: 11/12/18 Status: Ordered Flomax 0.4 mg oral capsule 0.4 mg, 1, capsule, By Mouth, Daily, # 30 capsule, Refills 0, Tot. Refills 0, Maintenance, 02/21/1611:29:46, Route to Pharmacy Electronically, [id number], [facility]/pharmacy #2339 Start Date: 02/22/16 Status: Ordered furosemide 20 mg oral tablet 20 mg, 1, tablet, By Mouth, Daily, # 30 tablet, Refills 0, Tot. Refills 0, Maintenance, 08/25/16 10:56:37, Route to Pharmacy Electronically, [id number], [facility]/pharmacy #2339 Start Date: 08/25/16 Status: Ordered lisinopril 5 mg oral tablet 5 mg, 1, tablet, By Mouth, Daily, Pls keep follow up appt for more refills, # 90 tablet, Refills 1,Tot. Refills 1, Maintenance, 03/14/19 10:26:24 EDT, Route to Pharmacy Electronically, [id number], [facility] Start Date: 03/14/19 Stop Date: 09/10/19 Status: Ordered metoprolol 25 mg oral tablet 25 mg, 1, tablet, By Mouth, 2 times a day, # 60 tablet, Refills 0, Tot. Refills 0, Maintenance, 02/22/16 11:22:06, Route to Pharmacy Electronically, [id number], [facility]/pharmacy#2339 Start Date: 02/22/16 Status: Ordered Vitamin B12 [...]
--- OUTSIDE RECORDS SUMMARY | 2024-02-21 08:22 | XMS_ITS | Continuity of Care Document ---
Author Organization [facility] Address [address] [place] [address]- Care Team Providers Care Crown Perforator Operator Name Role Phone Jules WEATHERS MD, Rocco Chua Primary Care Physician Encounter [facility] Date(s): 06/24/22 - 07/24/22 [facility] [address] [place] [address]- [place] Allergies, Adverse Reactions, Alerts No Known [...] 02/22/16 11:29:46 EDT, Route to Pharmacy Electronically, [facility]/pharmacy #2339 Start Date: 02/22/16 Status: Ordered metolazone [...] Maintenance, 02/22/16 11:22:06, Route to Pharmacy Electronically, [id number], [facility]/pharmacy#2339 Start Date: 02/22/16 Status: Ordered Norvasc 5 [...] tablet By Mouth in the morning and 2 tablet in the evening, 0 Refills, Maintenance, [...] Date: 05/20/22 Status: Ordered Problem List Condition Confirmation Course [...] Jules WEATHERS MD, Rocco Chua Address: Address: [address] [place] [id number]
--- OUTSIDE RECORDS SUMMARY | 2024-02-21 08:22 | XMS_ITS | Continuity of Care Document ---
Author Organization [facility] Address [address] [place] [address]- Care Team Providers Care Tree Expert Name Role Phone Jonah LOU, Justice Luciano Primary Care Physician U navailable En[place] [facility] Date(s): 05/06/21 - 05/13/21 [facility] [address] [place] [address]- Attending Physician: Padmini Johnson NP Admitting Physician: Padmini Johnson NP Allergies, Adverse Reactions, Alerts Substance Reaction Severity [...] 1 Refills, Maintenance, Route to Pharmacy Electronically, [id number], [facility]/pharmacy #5045 Start Date: 05/16/18 Stop Date: 11/12/18 Status: Ordered Flomax 0.4 mg oral capsule 0.4 mg, 1, capsule, By Mouth, Daily, # 30 capsule, Refills 0, Tot. Refills 0, Maintenance, 02/21/1611:29:46, Route to Pharmacy Electronically, [id number], [facility]/pharmacy #2339 Start Date: 02/22/16 Status: Ordered furosemide 20 mg oral tablet 20 mg, 1, tablet, By Mouth, Daily, # 30 tablet, Refills 0, Tot. Refills 0, Maintenance, 08/25/16 10:56:37, Route to Pharmacy Electronically, [id number], [facility]/pharmacy #2339 Start Date: 08/25/16 Status: Ordered lisinopril 5 mg oral tablet 5 mg, 1, tablet, By Mouth, Daily, Pls keep follow up appt for more refills, # 90 tablet, Refills 1,Tot. Refills 1, Maintenance, 03/14/19 10:26:24 EDT, Route to Pharmacy Electronically, [id number], [facility]/pharmacy #2339 Start Date: 03/14/19 Stop Date: 09/10/19 Status: Ordered metoprolol 25 mg oral tablet 25 mg, 1, tablet, By Mouth, 2 times a day, # 60 tablet, Refills 0, Tot. Refills 0, Maintenance, 02/22/16 11:22:06, Route to Pharmacy Electronically, [id number], [facility]/pharmacy#2339 Start Date: 02/22/16 Status: Ordered Vitamin [...] oldest [Reference Range]: 1 Height 169 cm (05/06/21 9:06 AM) Weight 72.57 kg (05/06/21 9:06 AM) Oxygen Saturation [94-100 %] 99 % (05/06/21 9:06 AM) Pulse Rate [55-90 bpm] 71 bpm (05/06/21 9:06 AM) Body Mass Index [18.5-24.99] 25.41 *H* (05/06/21 9:06 AM) Blood Pressure [90-138/55-84 mm Hg] 110/ 60mm Hg (05/06/21 9:06 AM) Blood pressure sites Arm, left (05/06/21 9:06 AM) Weight Obtained Via Patient/family state d (05/06/21 9:06 AM) Social History Social History Type Response Smoking Status Former smoker; Tobac co user in household: No; Other: quit 1980s.; entered on: 03/01/18 Sex
--- OUTSIDE RECORDS SUMMARY | 2024-02-21 08:22 | XMS_ITS | Continuity of Care Document ---
Author Organization [facility] Address [address] [place] [address]- Care Team Providers Care Machine Taper Name Role Phone Jules WEATHERS MD, Rocco Chua Primary Care Physician Encounter [facility] Date(s): 07/13/22 - 08/12/22 [facility] [address] [place] [address]- [place] Allergies, Adverse Reactions, Alerts No Known [...] 02/22/16 11:29:46 EDT, Route to Pharmacy Electronically, [facility]/pharmacy #2339 Start Date: 02/22/16 Status: Ordered metoprolol 25 mg oral tablet 25 mg, 1, tablet, By Mouth, 2 times a day, # 60 tablet, Refills 0, Tot. Refills 0, Maintenance, 02/22/16 11:22:06, Route to Pharmacy Electronically, [id number], [facility]/pharmacy#2339 Start Date: 02/22/16 Status: Ordered Norvasc 5 [...] Jules WEATHERS MD, Rocco Chua Address: Address: [address] [place] [address]
--- OUTSIDE RECORDS SUMMARY | 2024-02-21 08:22 | XMS_ITS | Continuity of Care Document ---
Author Organization [facility] Address [address] [place] [address]- Care Team Providers Care Managed Care Liaison Name Role Phone Ran LOU, Guru Kathleen Primary Care Physician Encounter [facility] Date(s): 12/09/20 - 12/16/20 [facility] [address] [place], [place] [address] Attending Physician: Neri GRAFF, Porsche John Admitting Physician: Neri GRAFF, Porsche John Referring Physician: Guru Tong MD Allergies, Adverse Reactions, Alerts Substance Reaction [...] 1 Refills, Maintenance, Route to Pharmacy Electronically, [id number], [facility]/pharmacy #[id number] Start Date: 05/16/18 Stop Date: 11/12/18 Status: Ordered Flomax 0.4 mg oral capsule 0.4 mg, 1, capsule, By Mouth, Daily, # 30 capsule, Refills 0, Tot. Refills 0, Maintenance, 02/21/1611:29:46, Route to Pharmacy Electronically, [id number], [facility]/pharmacy #2339 Start Date: 02/22/16 Status: Ordered furosemide 20 mg oral tablet 20 mg, 1, tablet, By Mouth, Daily, # 30 tablet, Refills 0, Tot. Refills 0, Maintenance, 08/25/16 10:56:37, Route to Pharmacy Electronically, [id number], [facility]/pharmacy #2339 Start Date: 08/25/16 Status: Ordered lisinopril 5 mg oral tablet 5 mg, 1, tablet, By Mouth, Daily, Pls keep follow up appt for more refills, # 90 tablet, Refills 1,Tot. Refills 1, Maintenance, 03/14/19 10:26:24 EDT, Route to Pharmacy Electronically, [id number], [facility]/pharmacy #2339 Start Date: 03/14/19 Stop Date: 09/10/19 Status: Ordered metoprolol 25 mg oral tablet 25 mg, 1, tablet, By Mouth, 2 times a day, # 60 tablet, Refills 0, Tot. Refills 0, Maintenance, 02/22/16 11:22:06, Route to Pharmacy Electronically, [id number], [facility]/pharmacy#2339 Start Date: 02/22/16 Status: Ordered Vitamin [...]
--- OUTSIDE RECORDS SUMMARY | 2024-02-21 08:22 | XMS_ITS | Continuity of Care Document ---
Author Organization [facility] Address [address] [place] [address]- Care Team Providers Care Manager Scientific Name Role Phone Jules WEATHERS MD, Rocco Chua Primary Care Physician [phone] Encounter [facility] Date(s): 01/26/22 - 02/02/22 [facility] [address] [place], [place] [address] Attending Physician: Not on Staff, Attending MD Referring Physician: Rocco Vicente III, MD [...] 1 Refills, Maintenance, Route to Pharmacy Electronically, [id number], [facility]/pharmacy #2339 Start Date: 05/16/18 Stop Date: 11/12/18 Status: Ordered Flomax 0.4 mg oral capsule 0.4 mg, 1, capsule, By Mouth, Daily, # 30 capsule, Refills 0, Tot. Refills 0, Maintenance, 02/21/1611:29:46, Route to Pharmacy Electronically, [id number], [facility]/pharmacy #2339 Start Date: 02/22/16 Status: Ordered furosemide 20 mg oral tablet 20 mg, 1, tablet, By Mouth, Daily, # 30 tablet, Refills 0, Tot. Refills 0, Maintenance, 08/25/16 10:56:37, Route to Pharmacy Electronically, [id number], [facility]/pharmacy #2339 Start Date: 08/25/16 Status: Ordered lisinopril 5 mg oral tablet 5 mg, 1, tablet, By Mouth, Daily, Pls keep follow up appt for more refills, # 90 tablet, Refills 1,Tot. Refills 1, Maintenance, 03/14/19 10:26:24 EDT, Route to Pharmacy Electronically, [id number], [facility] Start Date: 03/14/19 Stop Date: 09/10/19 Status: Ordered metoprolol 25 mg oral tablet 25 mg, 1, tablet, By Mouth, 2 times a day, # 60 tablet, Refills 0, Tot. Refills 0, Maintenance, 02/22/16 11:22:06, Route to Pharmacy Electronically, [id number], [facility] Start Date: 02/22/16 Status: [...] recent to oldest [Reference Range]: 1 Height 170 cm (01/26/22 1:39 PM) Weight 72.57 kg (01/26/22 1:39 PM) Oxygen Saturation [94-100 %] 99 % (01/26/22 1:39 PM) Pulse Rate [55-90 bpm] 85 bpm (01/26/22 1:39 PM) Body Mass Index [18.5-24.99] 25.11 *H* (01/26/22 1:39 PM) Blood Pressure [90-138/55-84 mm Hg] 124/ 86mm Hg (01/26/22 1:39 PM) Mode of Delivery (Oxygen) Room air (01/26/22 1:39 PM) Blood pressure sites Arm, left (01/26/22 1:39 PM) Weight Obtained Via Patient/family state d (01/26/22 1:39 PM) Social History Social History Type Response Smoking Status Former smoker; Tobac co user in household: No; Other: quit 1980s.; entered on: 03/01/18 Sex
--- OUTSIDE RECORDS SUMMARY | 2024-02-21 08:22 | XMS_ITS | Continuity of Care Document ---
Author Organization [facility] Address [address] [place] [address]- Care Team Providers Care Child Care Worker Name Role Phone Jules WEATHERS MD, Rocco Chua Primary Care Physician [place] [facility] [place] Date[place]s): 01/07/22 - 05/07/22 [facility] [address] [place], [place] [address] Attending Physician: Derek LOU, Sunil Brush Admitting Physician: Sunil Reed MD Allergies, Adverse Reactions, Alerts No Known [...] 1 Refills, Maintenance, Route to Pharmacy Electronically, [id number], [facility]/pharmacy #[id number] Start Date: 05/16/18 Stop Date: 11/12/18 Status: Ordered Flomax 0.4 mg oral capsule 0.4 mg, 1, capsule, By Mouth, Daily at bedtime, # 30 capsule, Refills 0, Tot. Refills 0, Maintenance, 02/22/16 11:29:46 EDT, [facility]ically, [facility] Start Date: 02/22/16 Status: Ordered furosemide 20 mg oral tablet 20 mg, 1, tablet, By Mouth, Daily, # 30 tablet, Refills 0, Tot. Refills 0, Maintenance, 08/25/16 10:56:37, Route to Pharmacy Electronically, [id number], [facility]/pharmacy #2339 Start Date: 08/25/16 Status: Ordered lisinopril 5 mg oral tablet 5 mg, 1, tablet, By Mouth, Daily, Pls keep follow up appt for more refills, # 90 tablet, Refills 1,Tot. Refills 1, Maintenance, 03/14/19 10:26:24 EDT, Route to Pharmacy Electronically, [id number], [facility]/pharmacy #2339 Start Date: 03/14/19 Stop Date: 09/10/19 Status: Ordered metoprolol 25 mg oral tablet 25 mg, 1, tablet, By Mouth, 2 times a day, # 60 tablet, Refills 0, Tot. Refills 0, Maintenance, 02/22/16 11:22:06, Route to Pharmacy Electronically, [id number], [facility]/pharmacy#2339 Start Date: 02/22/16 Status: Ordered Vitamin [...]
--- OUTSIDE RECORDS SUMMARY | 2024-02-21 08:22 | XMS_ITS | Continuity of Care Document ---
Author Organization [facility] Address [address] [place] [address]- Care Team Providers Care Powertrain Calibration Engineer Name Role Phone Jules WEATHERS MD, Rocco Chua Primary Care Physician En[place] [facility] [place] Date(s): 08/28/21 - 09/27/21 [facility] [address] [place] [address]- Attending Physician: Edgar Zhu Admitting Physician: Edgar Zhu Referring Physician: AdmtrEdgar Allergies, Adverse Reactions, Alerts [...] 1 Refills, Maintenance, Route to Pharmacy Electronically, [id number], [facility]/pharmacy #8005 Start Date: 05/16/18 Stop Date: 11/12/18 Status: Ordered Flomax 0.4 mg oral capsule 0.4 mg, 1, capsule, By Mouth, Daily, # 30 capsule, Refills 0, Tot. Refills 0, Maintenance, 02/21/1611:29:46, Route to Pharmacy Electronically, [id number], [facility]/pharmacy #2339 Start Date: 02/22/16 Status: Ordered furosemide 20 mg oral tablet 20 mg, 1, tablet, By Mouth, Daily, # 30 tablet, Refills 0, Tot. Refills 0, Maintenance, 08/25/16 10:56:37, Route to Pharmacy Electronically, [id number], [facility]/pharmacy #2339 Start Date: 08/25/16 Status: Ordered lisinopril 5 mg oral tablet 5 mg, 1, tablet, By Mouth, Daily, Pls keep follow up appt for more refills, # 90 tablet, Refills 1,Tot. Refills 1, Maintenance, 03/14/19 10:26:24 EDT, Route to Pharmacy Electronically, [id number], [facility] Start Date: 03/14/19 Stop Date: 09/10/19 Status: Ordered metoprolol 25 mg oral tablet 25 mg, 1, tablet, By Mouth, 2 times a day, # 60 tablet, Refills 0, Tot. Refills 0, Maintenance, 02/22/16 11:22:06, Route to Pharmacy Electronically, [id number], [facility]/pharmacy#2339 Start Date: 02/22/16 Status: Ordered [...]
--- OUTSIDE RECORDS SUMMARY | 2024-02-21 08:22 | XMS_ITS | Continuity of Care Document ---
Author Organization [facility] ashley Address [address] [place] [address] [place] [address]- Care Team Providers Care Geotechnical Engineer Name Role Phone Jules WEATHERS MD, Rocco Chua Primary Care Physician Encounter [facility] [place] Date(s): 06/01/22 - 06/08/22 [facility] [address] [place] [address] Attending Physician: Isaías Zaragoza MD Referring Physician: Julien [...] opioid drug. Start Date: 04/30/22 Status: Ordered doxycycline hyclate 100 mg oral capsule 1 capsule = 100 mg, By Mouth, 2 times a day, for 7 days, # 14 capsule, 0 Refills, Acute 06/14/22 14:38:00 EDT, 06/07/22 14:38:00 EDT, Capsule, [facility]/pharmacy #2339, Partial fill upon patient request ifthe prescription is for a schedule II opioid drug.,... Start Date: 06/07/22 Stop Date: 06/14/22 Status: Ordered Flomax 0.4 mg oral capsule 0.4 mg, 1, capsule, By Mouth, Daily at bedtime, # 30 capsule, Refills 0, Tot. Refills 0, Maintenance, 02/22/16 11:29:46 EDT, Route to Pharmacy Electronically, [facility]/pharmacy #2339 Start Date: 02/22/16 Status: Ordered metoprolol 25 mg oral tablet 25 mg, 1, tablet, By Mouth, 2 times a day, # 60 tablet, Refills 0, Tot. Refills 0, Maintenance, 02/22/16 11:22:06, Route to Pharmacy Electronically, [id number], [facility]/pharmacy#2337 Start Date: 02/22/16 Status: Ordered Norvasc 5 [...] oldest [Reference Range]: 1 Height 169 cm (06/01/22 11:17 AM) Weight 74.4 kg (06/01/22 11:17 AM) Oxygen Saturation [94-100 %] 97 % (06/01/22 11:17 AM) Pulse Rate [55-90 bpm] 85 bpm (06/01/22 11:17 AM) Body Mass Index [18.5-24.99] 26.05 *H* (06/01/22 11:17 AM) Blood Pressure [90-138/55-84 mm Hg] 122/ 74mm Hg (06/01/22 11:17 AM) Respiratory Rate [16-30 br/min] 18 br/mi n (06/01/22 11:17 AM) Mode of Delivery (Oxygen) Room air (06/01/22 11:17 AM) Blood pressure sites Arm, right (06/01/22 11:17 AM) Weight Obtained Via Patient/family state d (06/01/22 11:17 AM) Social History Social History Type Response Smoking Status Former smoker; Tobac co user in household: No; Other: quit 1980s.; entered on: 03/01/18 Sex
--- OUTSIDE RECORDS SUMMARY | 2024-02-21 08:22 | XMS_ITS | Continuity of Care Document ---
Author Organization [facility] Address [address] [place] [address]- Care Team Providers Care Resident Program Specialist Name Role Phone Jules WEATHERS MD, Rocco Chua Primary Care Physician Encounter [facility] [place] Date(s): 01/06/22 - 02/05/22 [facility] [address] [place], [place] [address] Attending Physician: Edgar Zhu Admitting Physician: Edgar Zhu Referring Physician: AdmtrEdgar Allergies, Adverse Reactions, Alerts No Known Allergies [...] 1 Refills, Maintenance, Route to Pharmacy Electronically, [id number], [facility]/pharmacy #2339 Start Date: 05/16/18 Stop Date: 11/12/18 Status: Ordered Flomax 0.4 mg oral capsule 0.4 mg, 1, capsule, By Mouth, Daily, # 30 capsule, Refills 0, Tot. Refills 0, Maintenance, 02/21/1611:29:46, Route to Pharmacy Electronically, [id number], [facility]/pharmacy #2339 Start Date: 02/22/16 Status: Ordered furosemide 20 mg oral tablet 20 mg, 1, tablet, By Mouth, Daily, # 30 tablet, Refills 0, Tot. Refills 0, Maintenance, 08/25/16 10:56:37, Route to Pharmacy Electronically, [id number], [facility]/pharmacy #2339 Start Date: 08/25/16 Status: Ordered lisinopril 5 mg oral tablet 5 mg, 1, tablet, By Mouth, Daily, Pls keep follow up appt for more refills, # 90 tablet, Refills 1,Tot. Refills 1, Maintenance, 03/14/19 10:26:24 EDT, Route to Pharmacy Electronically, [id number], [facility] Start Date: 03/14/19 Stop Date: 09/10/19 Status: Ordered metoprolol 25 mg oral tablet 25 mg, 1, tablet, By Mouth, 2 times a day, # 60 tablet, Refills 0, Tot. Refills 0, Maintenance, 02/22/16 11:22:06, Route to Pharmacy Electronically, [id number], [facility]/pharmacy#2339 Start Date: 02/22/16 Status: Ordered Vitamin B12 [...]
--- OUTSIDE RECORDS SUMMARY | 2024-02-21 08:22 | XMS_ITS | Continuity of Care Document ---
Author Organization [facility] Address [address] [place] [address]- Care Team Providers Care Tire Fixer Name Role Phone Jules WEATHERS MD, Rocco Chua Primary Care Physician [place] [facility] [place] - 02/25/22 [facility] [address] [place], [place] [address] Attending Physician: Edgar Zhu Admitting Physician: Edgar [...] 1 Refills, Maintenance, Route to Pharmacy Electronically, [id number], [facility]/pharmacy #2339 Start Date: 05/16/18 Stop Date: 11/12/18 Status: Ordered Flomax 0.4 mg oral capsule 0.4 mg, 1, capsule, By Mouth, Daily, # 30 capsule, Refills 0, Tot. Refills 0, Maintenance, 02/21/1611:29:46, Route to Pharmacy Electronically, [id number], [facility]/pharmacy #2339 Start Date: 02/22/16 Status: Ordered furosemide 20 mg oral tablet 20 mg, 1, tablet, By Mouth, Daily, # 30 tablet, Refills 0, Tot. Refills 0, Maintenance, 08/25/16 10:56:37, Route to Pharmacy Electronically, [id number], [facility]/pharmacy #2339 Start Date: 08/25/16 Status: Ordered lisinopril 5 mg oral tablet 5 mg, 1, tablet, By Mouth, Daily, Pls keep follow up appt for more refills, # 90 tablet, Refills 1,Tot. Refills 1, Maintenance, 03/14/19 10:26:24 EDT, Route to Pharmacy Electronically, [id number], [facility] Start Date: 03/14/19 Stop Date: 09/10/19 Status: Ordered metoprolol 25 mg oral tablet 25 mg, 1, tablet, By Mouth, 2 times a day, # 60 tablet, Refills 0, Tot. Refills 0, Maintenance, 02/22/16 11:22:06, Route to Pharmacy Electronically, [id number], [facility]/pharmacy#2339 Start Date: 02/22/16 Status: Ordered [...]
--- OUTSIDE RECORDS SUMMARY | 2024-02-21 08:22 | XMS_ITS | Continuity of Care Document ---
Author Organization [facility] Carlos ashley Address [address] [place] [address]- Care Team Providers Care Traffic Court Referee Name Role Phone Rocco Vicente III, MD Primary Care Physician [place] [facility] [place] - 11/14/22 [facility] [address] [place] [address]- Allergies, Adverse Reactions, Alerts No Known Allergies [...] opioid drug. Start Date: 08/03/22 Status: Ordered aspirin 81 mg oral delayed [...] 02/22/16 11:29:46 EDT, Route to Pharmacy Electronically, [facility]/pharmacy #2339 Start Date: 02/22/16 Status: Ordered metoprolol 25 mg oral tablet 25 mg, 1, tablet, By Mouth, 2 times a day, # 60 tablet, Refills 0, Tot. Refills 0, Maintenance, 02/22/16 11:22:06, Route to Pharmacy Electronically, [id number], [facility]/pharmacy#2339 Start Date: 02/22/16 Status: Ordered Norvasc [...] Team Personnel Name: Chidi Kyle RN Position: [facility] RN Supv Member Role: Primary Care Nurse Name: Ashley Sam Position: S RN Member Role: Primary Care Nurse Name: Rocco Vicente III, MD Position: [facility] Ambulatory (view) Member Role: PCP Address: Address: [address] [place] [address] Name: Ragini Greco Position: [facility] RN Member Role: Primary Care Nurse Name: Yudi Marshall RN Position: [facility] RN Supv Member Role: Primary Care Nurse Name: Paul Gardner Position: [facility] Associate Professional Member Role: Lifetime Consulting Provider Address: Address: [address] [place] [address]- Name: Edwar Mckay MD Position: [facility] Renal MD Member Role: Lifetime Consulting Physician Address: Address: [address] [place] [address] [address] [facility] [place], [place] [address] Name: Kathy Simon RN Position: [facility] RN Member Role: Primary Care Nurse Care Team Related Persons Name: ASHWIN VINSON Address: home [address] [place] [address] Name: MIGUEL JUAN Address: [place] [address] Name: SAME, DEFAULTED
--- OUTSIDE RECORDS SUMMARY | 2024-02-21 08:22 | XMS_ITS | Continuity of Care Document ---
Author Organization [facility] Carlos ashley Address [address] [place] [address]- Care Team Providers Care Rn Support Services Name Role Phone Jules WEATHERS MD, Rocco Chua Primary Care Physician [place] [facility] [place] Date(s): 06/07/22 - 06/14/22 [facility] [address] [place] [address]- Attending Physician: Isaías Zaragoza MD Referring Physician: [...] Maintenance, 02/22/16 11:22:06, Route to Pharmacy Electronically, [id number], [facility]/pharmacy#2339 Start Date: 02/22/16 [...] oldest [Reference Range]: 1 Height 169 cm (06/07/22 9:26 AM) Weight 70 kg (06/07/22 9:26 AM) Oxygen Saturation [94-100 %] 97 % (06/07/22 9:26 AM) Pulse Rate [55-90 bpm] 85 bpm (06/07/22 9:26 AM) Body Mass Index [18.5-24.99] 24.51 (06/07/22 9:26 AM) Blood Pressure [90-138/55-84 mm Hg] 122/ 76mm Hg (06/07/22 9:26 AM) Respiratory Rate [16-30 br/min] 18 br/mi n (06/07/22 9:26 AM) Mode of Delivery (Oxygen) Room air (06/07/22 9:26 AM) Blood pressure sites Arm, right (06/07/22 9:26 AM) Weight Obtained Via Patient/family state d (06/07/22 9:26 AM) Social History Social History Type Response Smoking Status Former smoker; Tobac co user in household: No; Other: quit 1980s.; entered on: 03/01/18 Sex Care Team Personnel Name: Jules WEATHERS MD, Rocco Chua Address: [address] [place] [address]
--- OUTSIDE RECORDS SUMMARY | 2024-02-21 08:22 | XMS_ITS | Continuity of Care Document ---
Author Organization [facility] Address [address] [place] [address]- Care Team Providers Care Pin Game Machine Inspector Name Role Phone Jules WEATHERS MD, Rocco Chua Primary Care Physician [place] [facility] [place] 03/23/22 - 03/30/22 [facility] [address] [place], [place] [email or web address] Attending Physician: Padmini Johnson NP Admitting Physician: Padmini Johnson NP Referring Physician: Rocco Vicente III, MD [...] 1 Refills, Maintenance, Route to Pharmacy Electronically, [id number], [facility]/pharmacy #2339 Start Date: 05/16/18 Stop Date: 11/12/18 Status: Ordered Flomax 0.4 mg oral capsule 0.4 mg, 1, capsule, By Mouth, Daily, # 30 capsule, Refills 0, Tot. Refills 0, Maintenance, 02/21/1611:29:46, Route to Pharmacy Electronically, [id number], [facility]/pharmacy #2339 Start Date: 02/22/16 Status: Ordered furosemide 20 mg oral tablet 20 mg, 1, tablet, By Mouth, Daily, # 30 tablet, Refills 0, Tot. Refills 0, Maintenance, 08/25/16 10:56:37, Route to Pharmacy Electronically, [id number], [facility]/pharmacy #2339 Start Date: 08/25/16 Status: Ordered lisinopril 5 mg oral tablet 5 mg, 1, tablet, By Mouth, Daily, Pls keep follow up appt for more refills, # 90 tablet, Refills 1,Tot. Refills 1, Maintenance, 03/14/19 10:26:24 EDT, Route to Pharmacy Electronically, [id number], [facility] Start Date: 03/14/19 Stop Date: 09/10/19 Status: Ordered metoprolol 25 mg oral tablet 25 mg, 1, tablet, By Mouth, 2 times a day, # 60 tablet, Refills 0, Tot. Refills 0, Maintenance, 02/22/16 11:22:06, Route to Pharmacy Electronically, [id number], [facility]/pharmacy#2339 Start Date: 02/22/16 Status: Ordered Vitamin [...] oldest [Reference Range]: 1 Height 170 cm (03/23/22 9:11 AM) Oxygen Saturation [94-100 %] 98 % (03/23/22 9:11 AM) Pulse Rate [55-90 bpm] 79 bpm (03/23/22 9:11 AM) Blood Pressure [90-138/55-84 mm Hg] 140/ 80mm Hg *H* (03/23/22 9:11 AM) Blood pressure sites Leg, right (03/23/22 9:11 AM) Social History Social History Type Response Smoking Status Former smoker; Tobac co user in household: No; Other: quit 1980s.; entered on: 03/01/18 Sex
--- OUTSIDE RECORDS SUMMARY | 2024-02-21 08:22 | XMS_ITS | Continuity of Care Document ---
Author Organization [facility] Address [address] [place] [address]- Care Team Providers Care Refractory Manager Name Role Phone Not on Staff, PCP Primary Care Physician Unavail able [place] [facility] [place](s): 03/20/21 - 04/19/21 [facility] [address] [place], [place] [address] Attending Physician: Edgar Zhu Admitting Physician: [...] 1 Refills, Maintenance, Route to Pharmacy Electronically, [id number], [facility]/pharmacy #[id number] Start Date: 05/16/18 Stop Date: 11/12/18 Status: Ordered Flomax 0.4 mg oral capsule 0.4 mg, 1, capsule, By Mouth, Daily, # 30 capsule, Refills 0, Tot. Refills 0, Maintenance, 02/21/1611:29:46, Route to Pharmacy Electronically, [id number], [facility]/pharmacy #2339 Start Date: 02/22/16 Status: Ordered furosemide 20 mg oral tablet 20 mg, 1, tablet, By Mouth, Daily, # 30 tablet, Refills 0, Tot. Refills 0, Maintenance, 08/25/16 10:56:37, Route to Pharmacy Electronically, [id number], [facility]/pharmacy #2339 Start Date: 08/25/16 Status: Ordered lisinopril 5 mg oral tablet 5 mg, 1, tablet, By Mouth, Daily, Pls keep follow up appt for more refills, # 90 tablet, Refills 1,Tot. Refills 1, Maintenance, 03/14/19 10:26:24 EDT, Route to Pharmacy Electronically, [id number], [facility]/pharmacy #2339 Start Date: 03/14/19 Stop Date: 09/10/19 Status: Ordered metoprolol 25 mg oral tablet 25 mg, 1, tablet, By Mouth, 2 times a day, # 60 tablet, Refills 0, Tot. Refills 0, Maintenance, 02/22/16 11:22:06, Route to Pharmacy Electronically, [id number], [facility]/pharmacy#2339 Start Date: 02/22/16 Status: Ordered Vitamin [...]
--- OUTSIDE RECORDS SUMMARY | 2024-02-21 08:22 | XMS_ITS | Continuity of Care Document ---
Author Organization [facility] Address [address] [place] [address]- Care Team Providers Care Shipping Services Sales Representative Name Role Phone Jules WEATHERS MD, Rocco Chua Primary Care Physician [place] [facility] [place]/22 [facility] [address] [place] [address]- [place] Allergies, Adverse Reactions, Alerts No Known [...] 02/22/16 11:29:46 EDT, Route to Pharmacy Electronically, [facility]/pharmacy #2339 Start Date: 02/22/16 Status: Ordered metolazone [...] Maintenance, 02/22/16 11:22:06, Route to Pharmacy Electronically, [id number], [facility]/pharmacy#2339 Start Date: 02/22/16 Status: Ordered Norvasc 5 [...] Jules WEATHERS MD, Rocco Chua Address: Address: [address] [place] [id number]
--- OUTSIDE RECORDS SUMMARY | 2024-02-21 08:22 | XMS_ITS | Continuity of Care Document ---
Author Organization [facility] Address [address] [place] [address]- Care Team Providers Care Professor Of Engineering Name Role Phone Jules WEATHERS MD, Rocco Chua Primary Care Physician [phone] Encounter [facility] [place](s): 08/28/21 - 09/04/21 [facility] [address] [place] [address]- Attending Physician: Francisco J Sher MD Admitting Physician: Francisco J Sher MD Referring Physician: Justice Mckenzie MD Allergies, Adverse Reactions, Alerts Substance Reaction [...] 1 Refills, Maintenance, Route to Pharmacy Electronically, [id number], [facility]/pharmacy #2339 Start Date: 05/16/18 Stop Date: 11/12/18 Status: Ordered Flomax 0.4 mg oral capsule 0.4 mg, 1, capsule, By Mouth, Daily, # 30 capsule, Refills 0, Tot. Refills 0, Maintenance, 02/21/1611:29:46, Route to Pharmacy Electronically, [id number], [facility]/pharmacy #2339 Start Date: 02/22/16 Status: Ordered furosemide 20 mg oral tablet 20 mg, 1, tablet, By Mouth, Daily, # 30 tablet, Refills 0, Tot. Refills 0, Maintenance, 08/25/16 10:56:37, Route to Pharmacy Electronically, [id number], [facility]/pharmacy #2339 Start Date: 08/25/16 Status: Ordered lisinopril 5 mg oral tablet 5 mg, 1, tablet, By Mouth, Daily, Pls keep follow up appt for more refills, # 90 tablet, Refills 1,Tot. Refills 1, Maintenance, 03/14/19 10:26:24 EDT, Route to Pharmacy Electronically, [id number], [facility]/pharmacy #2339 Start Date: 03/14/19 Stop Date: 09/10/19 Status: Ordered metoprolol 25 mg oral tablet 25 mg, 1, tablet, By Mouth, 2 times a day, # 60 tablet, Refills 0, Tot. Refills 0, Maintenance, 02/22/16 11:22:06, Route to Pharmacy Electronically, [id number], [facility]/pharmacy#2339 Start Date: 02/22/16 Status: Ordered Vitamin [...] oldest [Reference Range]: 1 Height 169 cm (08/28/21 1:27 PM) Weight 72.57 kg (08/28/21 1:27 PM) Oxygen Saturation [94-100 %] 98 % (08/28/21 1:27 PM) Pulse Rate [55-90 bpm] 65 bpm (08/28/21 1:27 PM) Body Mass Index [18.5-24.99] 25.41 *H* (08/28/21 1:27 PM) Blood Pressure [90-138/55-84 mm Hg] 148/ 68mm Hg *H* (08/28/21 1:27 PM) Mode of Delivery (Oxygen) Room air (08/28/21 1:27 PM) Blood pressure sites Arm, left (08/28/21 1:27 PM) Weight Obtained Via Patient/family state d (08/28/21 1:27 PM) Social History Social History Type Response Smoking Status Former smoker; Tobac co user in household: No; Other: quit 1980s.; entered on: 03/01/18 Sex
--- OUTSIDE RECORDS SUMMARY | 2024-02-21 08:22 | XMS_ITS | Continuity of Care Document ---
Author Organization [facility] Address [address] [place] [address]- Care Team Providers Care Wire Tinner Name Role Phone Jules WEATHERS MD, Rocco Chua Primary Care Physician Encounter [facility] [place] ACCT R [id number] Date(s): 08/06/22 - 09/05/22 [facility] [address] [place] [address] [place] Allergies, Adverse Reactions, Alerts No Known [...] 02/22/16 11:29:46 EDT, Route to Pharmacy Electronically, [facility]/pharmacy #2339 Start Date: 02/22/16 Status: Ordered metoprolol 25 mg oral tablet 25 mg, 1, tablet, By Mouth, 2 times a day, # 60 tablet, Refills 0, Tot. Refills 0, Maintenance, 02/22/16 11:22:06, Route to Pharmacy Electronically, [id number], [facility]/pharmacy#2339 Start Date: 02/22/16 Status: Ordered Norvasc 5 [...] Team Personnel Name: Chidi Kyle RN Position: [facility] RN Supv Member Role: Primary Care Nurse Name: Ashley Sam Position: [facility] RN Member Role: Primary Care Nurse Name: Rocco Vicente III, MD Position: [facility] Ambulatory (view) Member Role: PCP Address: Address: [address] [place] [address] Name: Ragini Greco Position: [facility] RN Member Role: Primary Care Nurse Name: Yudi Marshall RN Position: [facility] RN Supv Member Role: Primary Care Nurse Name: Paul Gardner Position: [facility] Associate Professional Member Role: Lifetime Consulting Provider Address: Address: [address] [place] [address]- Name: Edwar Mckay MD Position: [facility] Renal MD Member Role: Lifetime Consulting Physician Address: Address: [address] [place] [address] [address] [facility] [place] [place] [address]- Name: Kathy Simon RN Position: [facility] RN Member Role: Primary Care Nurse Care Team Related Persons Name: ASHWIN VINSON Address: home [address] [place] [address] Name: MIGUEL JUAN Address: [place] [address] Name: SAME, DEFAULTED
--- OUTSIDE RECORDS SUMMARY | 2024-02-21 08:22 | XMS_ITS | Continuity of Care Document ---
Author Organization [facility] Address [address] [place] [address]- Care Team Providers Care Hospice Home Health Aide Name Role Phone Jules WEATHERS MD, Rocco Chua Primary Care Physician [place] [facility] [place]CT R [id number] Date(s): 03/29/22 - 04/28/22 [facility] [address] [place] [address]- Attending Physician: Edgar Zhu Admitting Physician: Edgar Zhu Referring Physician: Edgar Zhu Allergies, Adverse Reactions, Alerts No Known Allergies [...] 1 Refills, Maintenance, Route to Pharmacy Electronically, [id number], [facility]39 Start Date: 05/16/18 Stop Date: 11/12/18 Status: Ordered Flomax 0.4 mg oral capsule 0.4 mg, 1, capsule, By Mouth, Daily, # 30 capsule, Refills 0, Tot. Refills 0, Maintenance, 02/21/1611:29:46, Route to Pharmacy Electronically, [id number], [facility] Start Date: 02/22/16 Status: Ordered furosemide 20 mg oral tablet 20 mg, 1, tablet, By Mouth, Daily, # 30 tablet, Refills 0, Tot. Refills 0, Maintenance, 08/25/16 10:56:37, Route to Pharmacy Electronically, [id number], [facility]/pharmacy #2339 Start Date: 08/25/16 Status: Ordered lisinopril 5 mg oral tablet 5 mg, 1, tablet, By Mouth, Daily, Pls keep follow up appt for more refills, # 90 tablet, Refills 1,Tot. Refills 1, Maintenance, 03/14/19 10:26:24 EDT, Route to Pharmacy Electronically, [id number], [facility] Start Date: 03/14/19 Stop Date: 09/10/19 Status: Ordered metoprolol 25 mg oral tablet 25 mg, 1, tablet, By Mouth, 2 times a day, # 60 tablet, Refills 0, Tot. Refills 0, Maintenance, 02/22/16 11:22:06, Route to Pharmacy Electronically, [id number], [facility] Start Date: 02/22/16 Status: Ordered Vitamin [...]
--- OUTSIDE RECORDS SUMMARY | 2024-02-21 08:22 | XMS_ITS | Continuity of Care Document ---
Author Organization [facility] Address [address] [place] [address]- Care Team Providers Care Upholstery Instructor Name Role Phone Jules WEATHERS MD, Rocco Chua Primary Care Physician Encounter [facility] [place]CT R [id number] Date(s): 09/18/23 - 01/15/24 [facility] [address] [place] [id number] Attending Physician: Derek LOU, Sunil Brush Admitting Physician: Sunil Reed MD Referring Physician: Derek LOU, Sunil Brush Allergies, Adverse Reactions, Alerts No Known Allergies [...] Refills, Maintenance, 01/21/23 10:31:00 EDT, Tablet, [facility], Partial fill upon patient request if the [...] 11:29:46 EDT, Route to Pharmacy Electronically, [facility]/pharmacy #2339 Start Date: 02/22/16 Status: Ordered metoprolol 25 mg oral tablet 25 mg, 1, tablet, By Mouth, 2 times a day, # 60 tablet, Refills 0, Tot. Refills 0, Maintenance, 02/22/16 11:22:06, Route to Pharmacy Electronically, [id number], [facility]/pharmacy#2339 Start Date: 02/22/16 Status: [...] Reference Physician Member Role: PCP Address: Address: [address] [place] [address] Name: Paul Gardner Position: [facility] Associate Professional Member Role: Lifetime Consulting Provider Address: Address: [address] [place] [address] Name: Edwar Mckay MD Position: [facility] Renal MD Member Role: Lifetime Consulting Physician Address: Address: [address] [place] [address] [address] [facility] [address] Name: Kathy Simon RN Position: [facility] RN Member Role: Primary Care Nurse Care Team Related Persons Name: ASHWIN VINSON Address: home [address] [place] [phone] Name: MIGUEL JUAN Address: [place] [address] Name: SAME, DEFAULTED
--- OUTSIDE RECORDS SUMMARY | 2024-02-21 08:22 | XMS_ITS | Continuity of Care Document ---
Author Organization [facility] Address [address] [place] [address]- Care Team Providers Care Director Medical Surgical Name Role Phone Jules WEATHERS MD, Rocco Chua Primary Care Physician [place] [facility] [place] 01/16/24 - 02/15/24 [facility] [address] [place] [address]- Attending Physician: AdmEdgar bill Admitting Physician: Admtr, Ar8 Referring Physician: Admtr, [...] Refills, Maintenance, 01/21/23 10:31:00 EDT, Tablet, [id number], Partial fill upon patient request if the [...] 11:29:46 EDT, Route to Pharmacy Electronically, [facility]/pharmacy #[id number] Start Date: 02/22/16 Status: Ordered metoprolol 25 mg oral tablet 25 mg, 1, tablet, By Mouth, 2 times a day, # 60 tablet, Refills 0, Tot. Refills 0, Maintenance, 02/22/16 11:22:06, Route to Pharmacy Electronically, [id number], [facility]/pharmacy#2339 Start Date: 02/22/16 Status: Ordered Norvasc [...] on: 03/01/18 Sex Cardiology * Event Display: EKG Non BH Authored Date: * Event Display: Non Cardiovascular Results Authored Date: * Event Display: Cardiology Office Note, Non-BH Authored Date: * Event Display: Non Cardiovascular Results Authored Date: Laboratory * Event Display: Non Lab Results Authored Date: * Event Display: Non Lab Results Authored Date: Patient Care team information Care Team Personnel Name: Jules WEATHERS MD, Rocco Chua Position: Reference Physician Member Role: PCP Address: Address: [address] [place] [id number] Name: Paul Gardner Position: [facility] Associate Professional Member Role: Lifetime Consulting Provider Address: Address: [address] [place] [address]- Name: Edwar Mckay MD Position: [facility] Renal MD Member Role: Lifetime Consulting Physician Address: Address: [address] [place] [address] [address] [facility], [place] [address]- Name: Kathy Simon RN Position: [facility] RN Member Role: Primary Care Nurse Care Team Related Persons Name: ASHWIN VINSON Address: home [address] [place] [address] Name: MIGUEL JUAN Address: [place] [address] Name: SAME, DEFAULTED
--- OUTSIDE RECORDS SUMMARY | 2024-02-21 08:23 | XMS_ITS | Continuity of Care Document ---
Author Organization [facility] Address [address] [place] [address]- Care Team Providers Care Brick Unloader Tender Name Role Phone Jules WEATHERS MD, Rocco Chua Primary Care Physician Encounter [facility] [place] Date(s): 06/28/23 - 07/28/23 [facility] [address] [place] [address]- [place] Allergies, Adverse Reactions, Alerts No Known [...] Refills, Maintenance, 01/21/23 10:31:00 EDT, Tablet, [id number], Partial fill upon patient request if the [...] Maintenance, 02/22/16 11:22:06, Route to Pharmacy Electronically, [id number], [facility]/pharmacy#2339 Start Date: 02/22/16 [...] Care team information Care Team Personnel Name: Rocco Vicente III, MD Position: Reference Physician Member Role: PCP Address: Address: [address] [place] [address] Name: Yudi Marshall RN Position: [facility] RN Supv Member Role: Primary Care Nurse Name: Paul Gardner Position: [facility] Associate Professional Member Role: Lifetime Consulting Provider Address: Address: [address] [place] [address] Name: Edwar Mckay MD Position: [facility] Renal MD Member Role: Lifetime Consulting Physician Address: Address: [address] [place] [address] [address] [facility], [address] Name: Kathy Simon RN Position: [facility] RN Member Role: Primary Care Nurse Care Team Related Persons Name: CHELYARMAANHeverASHWIN Address: home [address] [place] [address] Name: MIGUEL JUAN Address: [place] [address] Name: SAME, DEFAULTED
--- OUTSIDE RECORDS SUMMARY | 2024-02-21 08:23 | XMS_ITS | Continuity of Care Document ---
Author Organization [facility] Address [address] [place] [address]- Care Team Providers Care Digital Forensics Investigator Name Role Phone Jules WEATHERS MD, Rocco Chua Primary Care Physician [phone] [place] [facility] [place] 12/03/21 - 02/04/22 [facility] [address] [place] [id number] Attending Physician: Neri GRAFF, Porsche John [...] 1 Refills, Maintenance, Route to Pharmacy Electronically, [id number], [facility]/pharmacy #[id number] Start Date: 05/16/18 Stop Date: 11/12/18 Status: Ordered Flomax 0.4 mg oral capsule 0.4 mg, 1, capsule, By Mouth, Daily, # 30 capsule, Refills 0, Tot. Refills 0, Maintenance, 02/21/1611:29:46, Route to Pharmacy Electronically, [id number], [facility] Start Date: 02/22/16 Status: Ordered furosemide 20 mg oral tablet 20 mg, 1, tablet, By Mouth, Daily, # 30 tablet, Refills 0, Tot. Refills 0, Maintenance, 08/25/16 10:56:37, Route to Pharmacy Electronically, [id number], [facility] Start Date: 08/25/16 Status: Ordered lisinopril 5 mg oral tablet 5 mg, 1, tablet, By Mouth, Daily, Pls keep follow up appt for more refills, # 90 tablet, Refills 1,Tot. Refills 1, Maintenance, 03/14/19 10:26:24 EDT, Route to Pharmacy Electronically, [id number], [facility] Start Date: 03/14/19 Stop Date: 09/10/19 Status: Ordered metoprolol 25 mg oral tablet 25 mg, 1, tablet, By Mouth, 2 times a day, # 60 tablet, Refills 0, Tot. Refills 0, Maintenance, 02/22/16 11:22:06, Route to Pharmacy Electronically, [id number], [facility] Start Date: 02/22/16 Status: Ordered Vitamin [...]
--- OUTSIDE RECORDS SUMMARY | 2024-02-21 08:23 | XMS_ITS | Continuity of Care Document ---
Author Organization [facility] Address [address] [place] [address]- Care Team Providers Care Plasterer Maintenance Name Role Phone Jules WEATHERS MD, Rocco Chua Primary Care Physician En[facility] [place] Date(s): 05/24/22 - 06/24/22 [facility] [address] [place] [address]- Attending Physician: Julien Wise MD Admitting Physician: Julien Wise MD Allergies, Adverse Reactions, [...] 02/22/16 11:29:46 EDT, Route to Pharmacy Electronically, [facility]/pharmacy #[id number] Start Date: 02/22/16 Status: [...] Maintenance, 02/22/16 11:22:06, Route to Pharmacy Electronically, [id number], [facility]/pharmacy#2339 Start Date: 02/22/16 Status: Ordered Norvasc [...] Name: Jules WEATHERS MD, Rocco Chua Address: [address] [place] [id number]
--- OUTSIDE RECORDS SUMMARY | 2024-02-21 08:23 | XMS_ITS | Continuity of Care Document ---
Author Organization [facility] Address [address] [place] [address]- Care Team Providers Care Child Care Name Role Phone Jules WEATHERS MD, Rocco Chua Primary Care Physician [place] [facility] [place] - 10/16/21 [facility] [address] [place] [address]- [place] Allergies, Adverse Reactions, Alerts Substance Reaction Severity [...] 1 Refills, Maintenance, Route to Pharmacy Electronically, [id number], [facility]/pharmacy #2339 Start Date: 05/16/18 Stop Date: 11/12/18 Status: Ordered Flomax 0.4 mg oral capsule 0.4 mg, 1, capsule, By Mouth, Daily, # 30 capsule, Refills 0, Tot. Refills 0, Maintenance, 02/21/1611:29:46, Route to Pharmacy Electronically, [id number], [facility]/pharmacy #2339 Start Date: 02/22/16 Status: Ordered furosemide 20 mg oral tablet 20 mg, 1, tablet, By Mouth, Daily, # 30 tablet, Refills 0, Tot. Refills 0, Maintenance, 08/25/16 10:56:37, Route to Pharmacy Electronically, [id number], [facility]/pharmacy #2339 Start Date: 08/25/16 Status: Ordered lisinopril 5 mg oral tablet 5 mg, 1, tablet, By Mouth, Daily, Pls keep follow up appt for more refills, # 90 tablet, Refills 1,Tot. Refills 1, Maintenance, 03/14/19 10:26:24 EDT, Route to Pharmacy Electronically, [id number], [facility]/pharmacy #2339 Start Date: 03/14/19 Stop Date: 09/10/19 Status: Ordered metoprolol 25 mg oral tablet 25 mg, 1, tablet, By Mouth, 2 times a day, # 60 tablet, Refills 0, Tot. Refills 0, Maintenance, 02/22/16 11:22:06, Route to Pharmacy Electronically, [id number], [facility]/pharmacy#2339 Start Date: 02/22/16 [...]
--- OUTSIDE RECORDS SUMMARY | 2024-02-21 08:23 | XMS_ITS | Continuity of Care Document ---
Author Organization [facility] Address [address] [place], [place] [address]tory [place] [address]- Care Team Providers Care Inspector Plug Seam Name Role Phone Jules WEATHERS MD, Rocco Chua Primary Care Physician [phone] [place] [facility] [place] 04/23/22 - 05/23/22 [facility] [address] [place] [id number] Allergies, Adverse Reactions, Alerts No Known Allergies [...] 02/22/16 11:29:46 EDT, Route to Pharmacy Electronically, [facility]/pharmacy #[id number] Start Date: 02/22/16 Status: Ordered levoFLOXacin 750 [...] Maintenance, 02/22/16 11:22:06, Route to Pharmacy Electronically, [id number], [facility]/pharmacy#2339 Start Date: 02/22/16 Status: Ordered Norvasc [...]
--- OUTSIDE RECORDS SUMMARY | 2024-02-21 08:23 | XMS_ITS | Continuity of Care Document ---
Author Organization [facility] ash[facility] Address [address] [place] [address]- Care Team Providers Care Dumper Name Role Phone Rocco Vicetne III, MD Primary Care Physician [phone] [place] [facility] [place](s): 11/04/22 - 12/04/22 [facility] [address] [place] [address]- Attending Physician: Admtr, Ar8 Admitting Physician: Admtr, [...] 02/22/16 11:29:46 EDT, Route to Pharmacy Electronically, [facility]/pharmacy #2339 Start Date: 02/22/16 Status: Ordered metoprolol 25 mg oral tablet 25 mg, 1, tablet, By Mouth, 2 times a day, # 60 tablet, Refills 0, Tot. Refills 0, Maintenance, 02/22/16 11:22:06, Route to Pharmacy Electronically, [id number], [facility]/pharmacy#2339 Start Date: 02/22/16 Status: [...] Care team information Care Team Personnel Name: Cihdi Kyle RN Position: [facility] RN Supv Member Role: Primary Care Nurse Name: Ashley Sam Position: [facility] RN Member Role: Primary Care Nurse Name: Rocco Vicente III, MD Position: [facility] Ambulatory (view) Member Role: PCP Address: Address: [address] [place] [address] Name: Ragini Greco Position: S RN Member Role: Primary Care Nurse Name: Yudi Marshall RN Position: [facility] RN Supv Member Role: Primary Care Nurse Name: Paul Gardner Position: [facility] Associate Professional Member Role: Lifetime Consulting Provider Address: Address: [address] [place] [address] Name: Edwar Mckay MD Position: [facility] Renal MD Member Role: Lifetime Consulting Physician Address: Address: [address] [place] [address] [address] [facility] [place], [address] Name: Kathy Simon RN Position: [facility] RN Member Role: Primary Care Nurse Care Team Related Persons Name: ASHWIN VINSON Address: home [address] [place] [address] Name: MIGUEL JUAN Address: [place] [address] Name: SAME, DEFAULTED
--- OUTSIDE RECORDS SUMMARY | 2024-02-21 08:23 | XMS_ITS | Continuity of Care Document ---
Author Organization [facility] Address [address] [place] [address]- Care Team Providers Care Criminal Judge Name Role Phone Jules WEATHERS MD, Rocco Chua Primary Care Physician [place] [facility] [place] Date(s): 11/27/21 - 12/27/21 [facility] [address] [place] [address]- [place] Allergies, Adverse Reactions, Alerts No Known [...] 1 Refills, Maintenance, Route to Pharmacy Electronically, [id number], [facility]/pharmacy #2339 Start Date: 05/16/18 Stop Date: 11/12/18 Status: Ordered Flomax 0.4 mg oral capsule 0.4 mg, 1, capsule, By Mouth, Daily, # 30 capsule, Refills 0, Tot. Refills 0, Maintenance, 02/21/1611:29:46, Route to Pharmacy Electronically, [id number], [facility]/pharmacy #2339 Start Date: 02/22/16 Status: Ordered furosemide 20 mg oral tablet 20 mg, 1, tablet, By Mouth, Daily, # 30 tablet, Refills 0, Tot. Refills 0, Maintenance, 08/25/16 10:56:37, Route to Pharmacy Electronically, [id number], [facility]/pharmacy #2339 Start Date: 08/25/16 Status: Ordered lisinopril 5 mg oral tablet 5 mg, 1, tablet, By Mouth, Daily, Pls keep follow up appt for more refills, # 90 tablet, Refills 1,Tot. Refills 1, Maintenance, 03/14/19 10:26:24 EDT, Route to Pharmacy Electronically, [id number], [facility]/pharmacy #2339 Start Date: 03/14/19 Stop Date: 09/10/19 Status: Ordered metoprolol 25 mg oral tablet 25 mg, 1, tablet, By Mouth, 2 times a day, # 60 tablet, Refills 0, Tot. Refills 0, Maintenance, 02/22/16 11:22:06, Route to Pharmacy Electronically, [id number], [facility]/pharmacy#2339 Start Date: 02/22/16 Status: Ordered Vitamin B12 [...]
--- OUTSIDE RECORDS SUMMARY | 2024-02-21 08:23 | XMS_ITS | Continuity of Care Document ---
Author Organization [facility] Address [address] [place] [address]- Care Team Providers Care Black Top Machine Operator Name Role Phone Jules WEATHERS MD, Rocco Chua Primary Care Physician [place] [facility] [place] [id number] Date(s): 09/16/21 - 10/16/21 [facility] [address] [place] [address]- Attending Physician: Edgar Zhu Admitting Physician: Edgar Zhu Referring Physician: Edgar Zhu Allergies, Adverse Reactions, Alerts Substance Reaction Severity [...] 1 Refills, Maintenance, Route to Pharmacy Electronically, [id number], [facility]/pharmacy #2339 Start Date: 05/16/18 Stop Date: 11/12/18 Status: Ordered Flomax 0.4 mg oral capsule 0.4 mg, 1, capsule, By Mouth, Daily, # 30 capsule, Refills 0, Tot. Refills 0, Maintenance, 02/21/1611:29:46, Route to Pharmacy Electronically, [id number], [facility] Start Date: 02/22/16 Status: Ordered furosemide 20 mg oral tablet 20 mg, 1, tablet, By Mouth, Daily, # 30 tablet, Refills 0, Tot. Refills 0, Maintenance, 08/25/16 10:56:37, Route to Pharmacy Electronically, [id number], [facility]/pharmacy #2339 Start Date: 08/25/16 Status: Ordered lisinopril 5 mg oral tablet 5 mg, 1, tablet, By Mouth, Daily, Pls keep follow up appt for more refills, # 90 tablet, Refills 1,Tot. Refills 1, Maintenance, 03/14/19 10:26:24 EDT, Route to Pharmacy Electronically, [id number], [facility] Start Date: 03/14/19 Stop Date: 09/10/19 Status: Ordered metoprolol 25 mg oral tablet 25 mg, 1, tablet, By Mouth, 2 times a day, # 60 tablet, Refills 0, Tot. Refills 0, Maintenance, 02/22/16 11:22:06, Route to Pharmacy Electronically, [id number], [facility]/pharmacy#2339 Start Date: 02/22/16 Status: [...]
--- OUTSIDE RECORDS SUMMARY | 2024-02-21 08:23 | XMS_ITS | Continuity of Care Document ---
Author Organization [facility] Address [address] [place] [address]- Care Team Providers Care Manager Pest Name Role Phone Jules WEATHERS MD, Rocco Chau Primary Care Physician [phone] Encounter [facility] [place] ACCT R [id number] Date(s): 01/01/22 - 04/22/22 [facility] [address] [place] [address]- Attending Physician: Karli Anderson NP Admitting Physician: Monica GRAFF, Karli Felton Referring Physician: Rocco Vicente III, MD Allergies, [...] 1 Refills, Maintenance, Route to Pharmacy Electronically, [id number], [facility]/pharmacy #2339 Start Date: 05/16/18 Stop Date: 11/12/18 Status: Ordered Flomax 0.4 mg oral capsule 0.4 mg, 1, capsule, By Mouth, Daily, # 30 capsule, Refills 0, Tot. Refills 0, Maintenance, 02/21/1611:29:46, Route to Pharmacy Electronically, [id number], [facility]/pharmacy #2339 Start Date: 02/22/16 Status: Ordered furosemide 20 mg oral tablet 20 mg, 1, tablet, By Mouth, Daily, # 30 tablet, Refills 0, Tot. Refills 0, Maintenance, 08/25/16 10:56:37, Route to Pharmacy Electronically, [id number], [facility]/pharmacy #2339 Start Date: 08/25/16 Status: Ordered lisinopril 5 mg oral tablet 5 mg, 1, tablet, By Mouth, Daily, Pls keep follow up appt for more refills, # 90 tablet, Refills 1,Tot. Refills 1, Maintenance, 03/14/19 10:26:24 EDT, Route to Pharmacy Electronically, [id number], [facility] Start Date: 03/14/19 Stop Date: 09/10/19 Status: Ordered metoprolol 25 mg oral tablet 25 mg, 1, tablet, By Mouth, 2 times a day, # 60 tablet, Refills 0, Tot. Refills 0, Maintenance, 02/22/16 11:22:06, Route to Pharmacy Electronically, [id number], [facility] Start Date: 02/22/16 Status: Ordered Vitamin [...]
--- OUTSIDE RECORDS SUMMARY | 2024-02-21 08:23 | XMS_ITS | Continuity of Care Document ---
Author Organization [facility] Carlos ashley Address [address] [place] [address]- Care Team Providers Care Blending Coordinator Name Role Phone Jules WEATHERS MD, Rocco Chua Primary Care Physician [place] [facility] [place]s): 07/05/22 - 07/12/22 [facility] [address] [place] [address]- Attending Physician: Isaías Zaragoza MD Referring Physician: Floyd Galvan MD Allergies, Adverse Reactions, Alerts No Known [...] 02/22/16 11:29:46 EDT, Route to Pharmacy Electronically, [facility]/pharmacy #2339 Start Date: 02/22/16 Status: Ordered metolazone [...] Maintenance, 02/22/16 11:22:06, Route to Pharmacy Electronically, [id number], [facility]/pharmacy#2339 Start Date: 02/22/16 Status: Ordered Norvasc 5 [...] oldest [Reference Range]: 1 Height 169 cm (07/05/22 12:41 PM) Weight 71.7 kg (07/05/22 12:41 PM) Oxygen Saturation [94-100 %] 97 % (07/05/22 12:41 PM) Pulse Rate [55-90 bpm] 75 bpm (07/05/22 12:41 PM) Body Mass Index [18.5-24.99] 25.1 *H* (07/05/22 12:41 PM) Blood Pressure [90-138/55-84 mm Hg] 112/ 60mm Hg (07/05/22 12:41 PM) Temperature [96.8-100.4 DegF] 98.8 DegF (07/05/22 12:41 PM) Blood pressure sites Arm, left (07/05/22 12:41 PM) Temperature Route Oral (07/05/22 12:41 PM) Weight Obtained Via Patient/family state d (07/05/22 12:41 PM) Social History Social History Type Response Smoking Status Former smoker; Tobac co user in household: No; Other: quit 1980s.; entered on: 03/01/18 Sex Care Team Personnel Name: Jules WEATHERS MD, Rocco Chua Address: [address] [place] [address]
--- OUTSIDE RECORDS SUMMARY | 2024-02-21 08:23 | XMS_ITS | Continuity of Care Document ---
Author Organization [facility] Address [address] [place] [address]- Care Team Providers Care Tattoo Identifier Name Role Phone Ran LOU, Guru Kathleen Primary Care Physician [place] [facility] [place](s): 12/20/19 - 04/18/20 [facility] [address] [place] [address]- [facility] Attending Physician: Julien Wise MD Admitting Physician: Julien Wise MD Referring Physician: Lilly Valle MD Allergies, Adverse Reactions, Alerts Substance Reaction [...] 1 Refills, Maintenance, Route to Pharmacy Electronically, [id number], [facility]/pharmacy #2339 Start Date: 05/16/18 Stop Date: 11/12/18 Status: Ordered Flomax 0.4 mg oral capsule 0.4 mg, 1, capsule, By Mouth, Daily, # 30 capsule, Refills 0, Tot. Refills 0, Maintenance, 02/21/1611:29:46, Route to Pharmacy Electronically, [id number], [facility]/pharmacy #2339 Start Date: 02/22/16 Status: Ordered furosemide 20 mg oral tablet 20 mg, 1, tablet, By Mouth, Daily, # 30 tablet, Refills 0, Tot. Refills 0, Maintenance, 08/25/16 10:56:37, Route to Pharmacy Electronically, [id number], [facility]/pharmacy #2339 Start Date: 08/25/16 Status: Ordered lisinopril 5 mg oral tablet 5 mg, 1, tablet, By Mouth, Daily, Pls keep follow up appt for more refills, # 90 tablet, Refills 1,Tot. Refills 1, Maintenance, 03/14/19 10:26:24 EDT, Route to Pharmacy Electronically, [id number], [facility]/pharmacy #2339 Start Date: 03/14/19 Stop Date: 09/10/19 Status: Ordered metoprolol 25 mg oral tablet 25 mg, 1, tablet, By Mouth, 2 times a day, # 60 tablet, Refills 0, Tot. Refills 0, Maintenance, 02/22/16 11:22:06, Route to Pharmacy Electronically, [id number], [facility]/pharmacy#2339 Start Date: 02/22/16 Status: Ordered Vitamin [...]
--- OUTSIDE RECORDS SUMMARY | 2024-02-21 08:23 | XMS_ITS | Continuity of Care Document ---
Author Organization [facility] Address [address] [place] [address]- Care Team Providers Care Fixture Builder Name Role Phone Jules WEATHERS MD, Rocco Chua Primary Care Physician Encounter [facility] Date(s): 09/22/22 - 09/29/22 [facility] [address] [place] [address] Attending Physician: Derek LOU, Sunil Brush Admitting Physician: Derek LOU, Sunil Brush Referring Physician: Rocco Vicente III, MD Allergies, [...] 02/22/16 11:29:46 EDT, Route to Pharmacy Electronically, [facility]/pharmacy #[id number] Start Date: 02/22/16 Status: Ordered metoprolol 25 mg oral tablet 25 mg, 1, tablet, By Mouth, 2 times a day, # 60 tablet, Refills 0, Tot. Refills 0, Maintenance, 02/22/16 11:22:06, Route to Pharmacy Electronically, [id number], [facility]/pharmacy#2339 Start Date: 02/22/16 [...] Active PAD (peripheral artery disease) Confirmed Active Vital Signs Most recent to oldest [Reference Range]: 1 Height 169.0 cm (09/22/22 4:16 PM) Weight 70.31 kg (09/22/22 4:16 PM) Oxygen Saturation [94-100 %] 98 % (09/22/22 4:16 PM) Pulse Rate [55-90 bpm] 63 bpm (09/22/22 4:16 PM) Body Mass Index [18.5-24.99 kg/m2] 24.62 kg/m2 (09/22/22 4:16 PM) Blood Pressure [90-138/55-84 mm Hg] 130/ 68mm Hg (09/22/22 4:16 PM) Mode of Delivery (Oxygen) Room air (09/22/22 4:16 PM) Blood pressure sites Arm, left (09/22/22 4:16 PM) Weight Obtained Via Patient/family state d (09/22/22 4:16 PM) Social History Social History Type Response Smoking Status Former smoker; Tobac co user in household: No; Other: quit 1980s.; entered on: 03/01/18 Sex Patient Care team information Care Team Personnel Name: Chidi Kyle RN Position: [facility] RN Supv Member Role: Primary Care Nurse Name: Ashley Sam Position: [facility] RN Member Role: Primary Care Nurse Name: Rocco Vicente III, MD Position: [facility] Ambulatory (view) Member Role: PCP Address: Address: [address] [place] [address] Name: Ragini Greco Position: [facility] RN Member Role: Primary Care Nurse Name: Yudi Marshall RN Position: [facility] RN Supv Member Role: Primary Care Nurse Name: Paul Gardner Position: S Associate Professional Member Role: Lifetime Consulting Provider Address: Address: [address] [place] [address] Name: Edwar Mckay MD Position: [facility] Renal MD Member Role: Lifetime Consulting Physician Address: Address: [address] [place] [address] [address] [facility], [address] Name: Kathy Simon RN Position: S RN Member Role: Primary Care Nurse Care Team Related Persons Name: ASHWIN VINSON Address: home [address] [place] [address] Name: MIGUEL JUAN Address: [place] [address] Name: SAME, DEFAULTED
--- OUTSIDE RECORDS SUMMARY | 2024-02-21 08:23 | XMS_ITS | Continuity of Care Document ---
Author Organization [facility] Address [address] [place] [address]- Care Team Providers Care Legal Instructor Name Role Phone Jules WEATHERS MD, Rocco Chua Primary Care Physician Encounter [facility] ACCT R [id number] Date(s): 01/11/22 - 02/10/22 [facility] [address] [place] [address]- Attending Physician: Edgar Zhu Admitting Physician: Edgar [...] 1 Refills, Maintenance, Route to Pharmacy Electronically, [id number], [id number] Start Date: 05/16/18 Stop Date: 11/12/18 Status: Ordered Flomax 0.4 mg oral capsule 0.4 mg, 1, capsule, By Mouth, Daily, # 30 capsule, Refills 0, Tot. Refills 0, Maintenance, 02/21/1611:29:46, Route to Pharmacy Electronically, [id number], [id number] Start Date: 02/22/16 Status: Ordered furosemide 20 mg oral tablet 20 mg, 1, tablet, By Mouth, Daily, # 30 tablet, Refills 0, Tot. Refills 0, Maintenance, 08/25/16 10:56:37, Route to Pharmacy Electronically, [id number], [facility]/pharmacy #[id number] Start Date: 08/25/16 Status: Ordered lisinopril 5 mg oral tablet 5 mg, 1, tablet, By Mouth, Daily, Pls keep follow up appt for more refills, # 90 tablet, Refills 1,Tot. Refills 1, Maintenance, 03/14/19 10:26:24 EDT, Route to Pharmacy Electronically, [id number], [facility] Start Date: 03/14/19 Stop Date: 09/10/19 Status: Ordered metoprolol 25 mg oral tablet 25 mg, 1, tablet, By Mouth, 2 times a day, # 60 tablet, Refills 0, Tot. Refills 0, Maintenance, 02/22/16 11:22:06, Route to Pharmacy Electronically, [id number], [facility] Start Date: 02/22/16 Status: Ordered Vitamin B12 [...]
--- OUTSIDE RECORDS SUMMARY | 2024-02-21 08:23 | XMS_ITS | Continuity of Care Document ---
Author Organization [facility] Address [address] [place] [address]- Care Team Providers Care Sheet Metal Layout Mechanic Name Role Phone Rocco Vicente III, MD Primary Care Physician Encounter [facility] Date(s): 11/04/22 - 11/11/22 [facility] [address] [place] [address]- Attending Physician: Isaías Zaragoza MD Referring Physician: [...] 02/22/16 11:29:46 EDT, Route to Pharmacy Electronically, [facility]/pharmacy #[id number] Start Date: 02/22/16 Status: Ordered metoprolol 25 mg oral tablet 25 mg, 1, tablet, By Mouth, 2 times a day, # 60 tablet, Refills 0, Tot. Refills 0, Maintenance, 02/22/16 11:22:06, Route to Pharmacy Electronically, [id number], [facility]/pharmacy#2339 Start Date: 02/22/16 Status: Ordered Norvasc 5 [...] oldest [Reference Range]: 1 Height 169.0 cm (11/04/22 9:24 AM) Weight 70.3 kg (11/04/22 9:24 AM) Oxygen Saturation [94-100 %] 98 % (11/04/22 9:24 AM) Pulse Rate [55-90 bpm] 68 bpm (11/04/22 9:24 AM) Body Mass Index [18.5-24.99 kg/m2] 24.61 kg/m2 (11/04/22 9:24 AM) Blood Pressure [90-138/55-84 mm Hg] 110/ 60mm Hg (11/04/22 9:24 AM) Temperature [96.8-100.4 DegF] 97.8 DegF (11/04/22 9:24 AM) Blood pressure sites Arm, left (11/04/22 9:24 AM) Temperature Route Oral (11/04/22 9:24 AM) Weight Obtained Via Patient/family state d (11/04/22 9:24 AM) Social History Social History Type Response Smoking Status Former smoker; Tobac co user in household: No; Other: quit 1980s.; entered on: 03/01/18 Sex Cardiac surgery Outpatient Note * Isaías Zaragoza MD: PERFORM, SIGN, VERIFY Event Display: Cardiac Surgery Note Office Authored Date: [id number] Patient: CIRO VALDES Age: 77 years Sex: Male : 1945 Associated Diagnoses: None Author: Isaías Zaragoza MD Cardiac Surgery Progress Note The patient returns her office today for further follow-up after his aortic valve replacement, CABGx2 and application of a left atrial appendage clip given the patient's atrial fibrillation. Patient's intraoperative course was significant for relatively normal pulmonary artery pressures of40/20. The patient had significant aortic calcification making application of the aortic cross-clamp quite difficult. Postoperatively patient did well. At his last visit the patient continued to have significant lowerextremity edema. Patient now returns for further evaluation. The patient's cardiac echo from July documents preserved biventricular function. The left atriumis severely dilated. The aortic valve is functioning normally. The patient's PA pressures are elevated at 45 to 50 mmHg. Of note the patient does have moderate tricuspid regurgitation. Of note the patient's echo from February of last year showed mild tricuspid regurgitation and severely elevated pulmonary artery pressures of 60 mmHg. 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 The patient is currently being seen at the wound clinic for the situation. In addition the patient has been found to have a DVT recently and has been placed on Eliquis. Unfortunately patient continues to have significant lower extremity edema right greater than left which is ipsilateral to the patient's vein harvest site. Patient has been seeing Dr. Reed for this in the past. The patient has been wearing compression stockings and it continues to be on diuretics. Unfortunately there has been no significant improvement. Physical examination the patient's vital signs are blood pressure of 110/60. O2 sat of 98% on room air. Heart rate of 68. Lungs are clear to auscultation bilaterally. Patient is in an irregularly irregular rhythm. Patient's median sternotomy incisions well-healed. Patient's lower extremities do document plus pitting edema on the right and 3+ pitting edema on the left. I had a long discussion with the patient and his regarding his current situation. I think thatthe patient's lower extremity edema is likely due to lower extremity venous insufficiency as well as possibly due to to the ER worsening tricuspid regurgitation and the patient's pulmonary hypertension. Given the patient's DVT perhaps the patient does have undiagnosed pulmonary thromboembolic disease and perhaps a CTA of the chest would be appropriate. Given the patient's a pulmonary hypertensionperhaps selective pulmonary artery vasodilators such as sildenafil may be of some value to control the patient's symptoms. I indicated that the patient should elevate his lower extremities at night and wear compression stockings during the day. At this point from a cardiac surgical perspective we do not have a much to offer the patient. I indicated to the patient if we can be of any further assistance that he should not hesitate to call our office. We appreciate the privilege of dissipating this challenging patient's care. A total of 45 minutes were spent with the patient in this [id number] encounter, coordinating careand reviewing the patient's imaging studies. Patient Care team information Care Team Personnel Name: Chidi Kyle RN Position: [facility] RN Supv Member Role: Primary Care Nurse Name: Ashley Sam Position: S RN Member Role: Primary Care Nurse Name: Rocco Vicente III, MD Position: [facility] Ambulatory (view) Member Role: PCP Address: Address: [address] [place] [address]- Name: Ragini Greco Position: [facility] RN Member Role: Primary Care Nurse Name: Yudi Marshall RN Position: [facility] RN Supv Member Role: Primary Care Nurse Name: Paul Gardner Position: [facility] Associate Professional Member Role: Lifetime Consulting Provider Address: Address: [address] [place] [address] Name: Edwar Mckay MD Position: [facility] Renal MD Member Role: Lifetime Consulting Physician Address: Address: [address] [place] [address] [address] [facility] [place], [place] [address]- Name: Kathy Simon RN Position: [facility] RN Member Role: Primary Care Nurse Care Team Related Persons Name: ASHWIN VINSON Address: home [address] [place] [address] Name: MIGUEL JUAN Address: [place] [address] Name: SAME, DEFAULTED
--- OUTSIDE RECORDS SUMMARY | 2024-02-21 08:23 | XMS_ITS | Continuity of Care Document ---
Author Organization [facility] Address [address] [place], [place] [address]tory [place] [address]- Care Team Providers Care A/C Tech Name Role Phone Jules WEATHERS MD, Rocco Chua Primary Care Physician Encounter [facility] Date(s): 06/01/22 - 07/01/22 [facility] [address] [place] [id number] Allergies, Adverse Reactions, Alerts No Known Allergies [...] 02/22/16 11:29:46 EDT, Route to Pharmacy Electronically, [facility]/pharmacy #[id number] Start Date: 02/22/16 Status: [...] Maintenance, 02/22/16 11:22:06, Route to Pharmacy Electronically, [id number], [facility]/pharmacy#2337 Start Date: 02/22/16 Status: Ordered Norvasc 5 [...] Name: Jules WEATHERS MD, Rocco Chua Address: [address] [place] [address]
--- OUTSIDE RECORDS SUMMARY | 2024-02-21 08:23 | XMS_ITS | Continuity of Care Document ---
Author Organization [facility] Address [address] [place] [address]- Care Team Providers Care Wellness Specialist Name Role Phone Jules WEATHERS MD, Rocco Chua Primary Care Physician Encounter [facility] ACCT R [id number] Date(s): 12/23/22 - 12/30/22 [facility] [address] [place] [address] Attending Physician: Derek LOU, Sunil Brush Admitting Physician: Derek LOU, Sunil Brush Allergies, Adverse [...] 02/22/16 11:29:46 EDT, Route to Pharmacy Electronically, [facility]/pharmacy #2339 Start Date: 02/22/16 Status: Ordered metoprolol 25 mg oral tablet 25 mg, 1, tablet, By Mouth, 2 times a day, # 60 tablet, Refills 0, Tot. Refills 0, Maintenance, 02/22/16 11:22:06, Route to Pharmacy Electronically, [id number], [facility]/pharmacy#2339 Start Date: 02/22/16 Status: Ordered Norvasc 5 [...] oldest [Reference Range]: 1 Height 169.0 cm (12/23/22 12:52 PM) Weight 70.5 kg (12/23/22 12:52 PM) Pulse Rate [55-90 bpm] 60 bpm (12/23/22 12:52 PM) Body Mass Index [18.5-24.99 kg/m2] 24.68 kg/m2 (12/23/22 12:52 PM) Blood Pressure [90-138/55-84 mm Hg] 138/ 70mm Hg (12/23/22 12:52 PM) Blood pressure sites Arm, right (12/23/22 12:52 PM) Weight Obtained Via Patient/family state d (12/23/22 12:52 PM) Social History Social History Type Response Smoking Status Former smoker; Tobac co user in household: No; Other: quit 1980s.; entered on: 03/01/18 Sex Note * Porsche Mendez: PERFORM, SIGN, VERIFY Event Display: Patient Education/Instruction Authored Date: [id number] [facility] *[facility] [address] Clinical Summary Name CIRO VALDES Age 77 Years 1945 PCP Jules WEATHERS MD, Rocco Chua PCP Visit Date 12/23/2022 12:39:00 Additional Instructions: Scheduled Appointments?? Future Appointments ?*[facility]??Cardiology1 ?[address]??[place],??[place],??[address] ?Phone:??--?Fax:??-- ?Appt. Date:??01/21/2023?9:25 AM ?Scheduled Provider:??Billie LOU , Julien Rowe Follow-Up Instructions ?? Diagnosis Medications: Please continue your medications until treatment is completed or stopped by your provider. Discuss any questions related to medications with your provider. Medications to Continue with No Changes These medications were not printed or sent to your pharmacy Amlodipine (Norvasc 5 mg oral tablet) 1 tab(s) Oral Daily. Next Dose: apixaban (Eliquis 5 mg oral tablet) 1 tab(s) Oral twice a day. Next Dose: Aspirin (aspirin 81 mg oral delayed release tablet) 1 tab(s) Oral Daily. Next Dose: Cyanocobalamin (Vitamin B12) 1,000 Microgram Daily. Next Dose: Metoprolol (metoprolol 25 mg oral tablet) 1 tab(s) Oral twice a day. Refills: 0. Next Dose: Miscellaneous Rx (20 - 30mmHg below knee support stockings) symptomatic varicose veins bilateral. Refills: 0. Next Dose: Oxycodone / Acetaminophen (acetaminophen-oxyCODONE 325 mg-5 mg oral tablet) 1 tab(s) Oral every 6 hours. Next Dose: Potassium Chloride (potassium chloride 20 mEq oral tablet, extended release) 2 tab(s) Oral twice a day. Next Dose: Tamsulosin (Flomax 0.4 mg oral capsule) 1 capsule Oral Daily at Bedtime. Refills: 0. Next Dose: torsemide (torsemide 20 mg oral tablet) Take 3 tablet By Mouth in the morning. Refills: 0. Next Dose: Allergy Info:?? NKA Medications Given This Visit Future Orders ?No future orders Vital Signs Height 169.0 cm Weight 70.5 kg BMI 24.68 kg/m2 Blood Pressure 138 mm Hg/70 mm Hg Temperature Pulse Rate 60 bpm Respiratory Rate 02 Sat Mode of Delivery / You can now view a summary of your hospital visit from the comfort of your home through a free online portal called [employer]. [employer] is a website that allows you to securely view your medical information including discharge summary, medications and follow-up visits. ??You can alsosend a secure electronic message to your doctor???s office to request appointments, renew medications or just ask a question. You can enroll at [email or web address] or register during your next office visit. Disclaimer:?? The information provided is of a general nature and is intended to be used in conjunction with the recommendations and advice of your health care practitioner. ??Every effort has been made to ensure that the information provided is accurate and complete at the time it is provided to you however, as your needs change, or, as new ??information becomes available, different or additional instructions may be required. If you have questions, please consult with your primary care provider or pharmacist, as appropriate. ??This information is not intended to serve as substitution for assessment and evaluation by a qualified health care provider. If you do not have a primary care provider, you may find a [facility] provider by calling [facility] [employer] [facility] at [phone]. For information about the plan of care including goals and instructions for your diagnosis, please see the patient education orders section of this document. Patient Education Materials?? The content of this educational material or handout may have been modified, supplemented, or adapted from its original content and format to support your individualized medical care. Patient Care team information Care Team Personnel Name: Jules WEATHERS MD, Rocco Chua Position: [facility] Ambulatory (view) Member Role: PCP Address: Address: [address] [place] [address]- Name: Yudi Marshall RN Position: [facility] RN Supv Member Role: Primary Care Nurse Name: Paul Gardner Position: [facility] Associate Professional Member Role: Lifetime Consulting Provider Address: Address: [address] [place] [address] Name: Edwar Mckay MD Position: [facility] Renal MD Member Role: Lifetime Consulting Physician Address: Address: [address] [place] [address] [address] [facility], [address] Name: Kathy Simon RN Position: [facility] RN Member Role: Primary Care Nurse Care Team Related Persons Name: LINDAHeverLUISE Address: home [address] [place] [address] Name: MIGUEL JUAN Address: [place] [address] Name: SAME, DEFAULTED
--- OUTSIDE RECORDS SUMMARY | 2024-02-21 08:23 | XMS_ITS | Continuity of Care Document ---
Author Organization [facility] Address [address] [place] [address]- Care Team Providers Care Coffee Farmer Name Role Phone Jules WEATHERS MD, Rocco Chua Primary Care Physician Encounter [facility] Date(s): 06/18/22 - 07/18/22 [facility] [address] [place] [address]- [place] Allergies, Adverse Reactions, Alerts No Known [...] 02/22/16 11:29:46 EDT, Route to Pharmacy Electronically, [facility]/pharmacy #2339 Start Date: 02/22/16 [...] Maintenance, 02/22/16 11:22:06, Route to Pharmacy Electronically, [id number], [facility]/pharmacy#2339 Start Date: 02/22/16 Status: [...] Jules WEATHERS MD, Rocco Chua Address: Address: [address] [place] [address]
--- OUTSIDE RECORDS SUMMARY | 2024-02-21 08:23 | XMS_ITS | Continuity of Care Document ---
Author Organization [facility] Address [address] [place] [address]- Care Team Providers Care Forestry Worker Name Role Phone Jonah LOU, Justice Luciano Primary Care Physician U navailable Encounter [facility] Date(s): 05/04/21 - 06/03/21 [facility] [address] [place] [address]- Allergies, Adverse Reactions, Alerts Substance Reaction Severity [...] 1 Refills, Maintenance, Route to Pharmacy Electronically, [id number], [facility]/pharmacy #2612 Start Date: 05/16/18 Stop Date: 11/12/18 Status: Ordered Flomax 0.4 mg oral capsule 0.4 mg, 1, capsule, By Mouth, Daily, # 30 capsule, Refills 0, Tot. Refills 0, Maintenance, 02/21/1611:29:46, Route to Pharmacy Electronically, [id number], [facility] Start Date: 02/22/16 Status: Ordered furosemide 20 mg oral tablet 20 mg, 1, tablet, By Mouth, Daily, # 30 tablet, Refills 0, Tot. Refills 0, Maintenance, 08/25/16 10:56:37, Route to Pharmacy Electronically, [id number], [facility] Start Date: 08/25/16 Status: Ordered lisinopril 5 mg oral tablet 5 mg, 1, tablet, By Mouth, Daily, Pls keep follow up appt for more refills, # 90 tablet, Refills 1,Tot. Refills 1, Maintenance, 03/14/19 10:26:24 EDT, Route to Pharmacy Electronically, [id number], [facility] Start Date: 03/14/19 Stop Date: 09/10/19 Status: Ordered metoprolol 25 mg oral tablet 25 mg, 1, tablet, By Mouth, 2 times a day, # 60 tablet, Refills 0, Tot. Refills 0, Maintenance, 02/22/16 11:22:06, Route to Pharmacy Electronically, [id number], [facility] Start Date: 02/22/16 Status: Ordered Vitamin B12 [...]
--- OUTSIDE RECORDS SUMMARY | 2024-02-21 08:23 | XMS_ITS | Continuity of Care Document ---
Author Organization [facility] Address [address] [place] [address]- Care Team Providers Care Oil Winterizer Name Role Phone Jules WEATHERS MD, Rocco Chua Primary Care Physician Encounter [facility] Date(s): 11/09/22 - 12/09/22 [facility] [address] [place] [address]- Attending Physician: Edgar Zhu Admitting Physician: Edgar Zhu Referring Physician: Admtr, Ar8 Allergies, Adverse Reactions, [...] 11:29:46 EDT, Route to Pharmacy Electronically, [facility]/pharmacy #[id number] Start Date: 02/22/16 Status: Ordered metoprolol 25 mg oral tablet 25 mg, 1, tablet, By Mouth, 2 times a day, # 60 tablet, Refills 0, Tot. Refills 0, Maintenance, 02/22/16 11:22:06, Route to Pharmacy Electronically, [id number], [facility]/pharmacy#2339 Start Date: 02/22/16 Status: Ordered Norvasc 5 [...] 1980s.; entered on: 03/01/18 Sex Note * Event Display: Non BH Lab Results Authored Date: * Event Display: Non BH Lab Results Authored Date: * Event Display: EKG Non BH Authored Date: * Event Display: Non BH Cardiovascular Results Authored Date: * Event Display: Cardiology Office Note, Non-BH Authored Date: * Event Display: Non BH Cardiovascular Results Authored Date: Patient Care team information Care Team Personnel Name: Ashley Sam Position: [facility] RN Member Role: Primary Care Nurse Name: Rocco Vicente III, MD Position: [facility] Ambulatory (view) Member Role: PCP Address: Address: [address] [place] [address]- Name: Yudi Marshall RN Position: [facility] RN Supv Member Role: Primary Care Nurse Name: Paul Gardner Position: [facility] Associate Professional Member Role: Lifetime Consulting Provider Address: Address: [address] [place] [address] Name: Edwar Mckay MD Position: [facility] Renal MD Member Role: Lifetime Consulting Physician Address: Address: [address] [place] [address] [address] [facility] [place], [place] [address]- Name: Kathy Simon RN Position: [facility] RN Member Role: Primary Care Nurse Care Team Related Persons Name: ASHWIN VINSON Address: home [address] [place] [address] Name: MIGUEL JUAN Address: home SAME PT. [place], [place] Name: SAME, DEFAULTED
--- OUTSIDE RECORDS SUMMARY | 2024-02-21 08:23 | XMS_ITS | Continuity of Care Document ---
Author Organization [facility] Address [address] [place] [address]- Care Team Providers Care Machine Hose Cutter Name Role Phone Jules WEATHERS MD, Rocco Chua Primary Care Physician [phone] [place] [facility] [place] - 07/29/22 [facility] [address] [place] [address]- [place] Allergies, Adverse Reactions, Alerts No Known [...] 02/22/16 11:29:46 EDT, Route to Pharmacy Electronically, [facility]/pharmacy #[id number] Start Date: 02/22/16 Status: Ordered [...] Maintenance, 02/22/16 11:22:06, Route to Pharmacy Electronically, [id number], [facility]/pharmacy#2339 Start Date: 02/22/16 Status: Ordered Norvasc [...] Jules WEATHERS MD, Rocco Chua Address: Address: [address] [place] [address]
--- OUTSIDE RECORDS SUMMARY | 2024-02-21 08:23 | XMS_ITS | Continuity of Care Document ---
Author Organization [facility] Address [address] [place] [address]- Care Team Providers Care Director Recreation Center Name Role Phone Jules WEATHERS MD, Rocco Chua Primary Care Physician [phone] Encounter [facility] Date(s): 07/01/22 - 07/31/22 [facility] [address] [place] [address]- [place] Allergies, Adverse Reactions, Alerts No Known [...] 02/22/16 11:29:46 EDT, Route to Pharmacy Electronically, [facility]/pharmacy #[id number] Start Date: 02/22/16 Status: Ordered [...] Maintenance, 02/22/16 11:22:06, Route to Pharmacy Electronically, [id number], [facility]/pharmacy#2339 Start Date: 02/22/16 Status: Ordered Norvasc [...] Jules WEATHERS MD, Rocco Chua Address: Address: [address] [place] [address]
--- OUTSIDE RECORDS SUMMARY | 2024-02-21 08:23 | XMS_ITS | Continuity of Care Document ---
Author Organization [facility] Carlos ashley Address [address] [place] [address] [place] [address]- Care Team Providers Care Fibreglass Lay Up Worker Name Role Phone Jules WEATHERS MD, Rocco Chua Primary Care Physician [place] [facility] [place]22 [facility] [address] [place] [address] Allergies, Adverse Reactions, Alerts No Known [...] Maintenance, 02/22/16 11:22:06, Route to Pharmacy Electronically, [id number], [facility]/pharmacy#2338 Start Date: 02/22/16 Status: Ordered Norvasc 5 [...] Name: Jules WEATHERS MD, Rocco Chua Address: [address] [place] [address]
--- OUTSIDE RECORDS SUMMARY | 2024-02-21 08:23 | XMS_ITS | Continuity of Care Document ---
Author Organization [facility] ter Address [address] [place] [address]- Care Team Providers Care Administrative Office Clerk Name Role Phone Rocco Vicente III, MD Primary Care Physician [place] [facility] [place] - 09/20/[address] [address] Encounter Diagnosis Atherosclerotic heart disease of [place] coronary artery without angina pectoris (Final) - Discharge Disposition: A-D/C Home Attending Physician: Isaías Zaragoza MD Admitting Physician: Isaías Zaragoza MD Referring Physician: Isaías Zaragoza MD Allergies, Adverse Reactions, Alerts No Known [...] 02/22/16 11:29:46 EDT, Route to Pharmacy Electronically, [facility]/pharmacy #[id number] Start Date: 02/22/16 Status: Ordered metoprolol 25 mg oral tablet 25 mg, 1, tablet, By Mouth, 2 times a day, # 60 tablet, Refills 0, Tot. Refills 0, Maintenance, 02/22/16 11:22:06, Route to Pharmacy Electronically, [id number], [facility]/pharmacy#2339 Start Date: 02/22/16 Status: Ordered Norvasc [...] on: 03/01/18 Sex Note * Event Display: Cardiac Rehab Individual Treatment Plan Authored Date: * Event Display: Cardiac Rehab Telemetry Report Authored Date: * Event Display: Cardiac Rehab Telemetry Report Authored Date: Patient Care team information Care Team Personnel Name: Chidi Kyle RN Position: [facility] RN Supv Member Role: Primary Care Nurse Name: Ashley Sam Position: [facility] RN Member Role: Primary Care Nurse Name: Rocco Vicente III, MD Position: [facility] Ambulatory (view) Member Role: PCP Address: Address: [address] [place] [address]- Name: Ragini Greco Position: [facility] RN Member Role: Primary Care Nurse Name: Yudi Marshall RN Position: [facility] RN Supv Member Role: Primary Care Nurse Name: Paul Gardner Position: [facility] Associate Professional Member Role: Lifetime Consulting Provider Address: Address: [address] [place] [address]- Name: Edwar Mckay MD Position: [facility] Renal MD Member Role: Lifetime Consulting Physician Address: Address: [address] [place] [address] [address] [facility] [place], [place] [address]- Name: Kathy Simon RN Position: [facility] RN Member Role: Primary Care Nurse Care Team Related Persons Name: ASHWIN VINSON Address: home [address] [place] [address] Name: MIGUEL JUAN Address: home SAME PT. [place], [place] Name: SAME, DEFAULTED
--- OUTSIDE RECORDS SUMMARY | 2024-02-21 08:23 | XMS_ITS | Continuity of Care Document ---
Author Organization [facility] ter Address [address] [place] [address]- Care Team Providers Care Sheet Heater Name Role Phone Jules WEATHERS MD, Rocco Chua Primary Care Physician [phone] [place] [facility] [place] 12/10/21 - 12/10/[address] [address]- Encounter Diagnosis Rib fractures(Final) - 12/10/21 Discharge Disposition: A-D/C Home Attending Physician: David Rowe MD Admitting Physician: David Rowe MD Referring Physician: Not on Staff, Referring [...] 1 Refills, Maintenance, Route to Pharmacy Electronically, [id number], [facility]/pharmacy #[id number] Start Date: 05/16/18 Stop Date: 11/12/18 Status: Ordered Flomax 0.4 mg oral capsule 0.4 mg, 1, capsule, By Mouth, Daily, # 30 capsule, Refills 0, Tot. Refills 0, Maintenance, 02/21/1611:29:46, Route to Pharmacy Electronically, [id number], [facility]/pharmacy #2339 Start Date: 02/22/16 Status: Ordered furosemide 20 mg oral tablet 20 mg, 1, tablet, By Mouth, Daily, # 30 tablet, Refills 0, Tot. Refills 0, Maintenance, 08/25/16 10:56:37, Route to Pharmacy Electronically, [id number], [facility]/pharmacy #2339 Start Date: 08/25/16 Status: Ordered lisinopril 5 mg oral tablet 5 mg, 1, tablet, By Mouth, Daily, Pls keep follow up appt for more refills, # 90 tablet, Refills 1,Tot. Refills 1, Maintenance, 03/14/19 10:26:24 EDT, Route to Pharmacy Electronically, [id number], [id number] Start Date: 03/14/19 Stop Date: 09/10/19 Status: Ordered metoprolol 25 mg oral tablet 25 mg, 1, tablet, By Mouth, 2 times a day, # 60 tablet, Refills 0, Tot. Refills 0, Maintenance, 02/22/16 11:22:06, Route to Pharmacy Electronically, [id number], [facility] Start Date: 02/22/16 [...] Active PAD (peripheral artery disease)(Confirmed) Active Results Radiology Reports * Exam Date Time Procedure Performing Provider Status 12/10/21 8:29 AM Chest 2 Views Frontal and Lat Noe Barahona (Verified) Notes: (Chest 2 Views Frontal and Lat) Reason For Exam: Other: RESULT: Chest 2 Views Frontal and Lat Chest 2 Views Frontal and Lat Hx of Present Illness: pt sates, i have 3 fx ribs beacuse i was carrying my dog down the stairs and i got to the last stair i tripped and fell on L side I went to [facility] and they did and xray and they said i have 3 fx ribs and to go [place] [facility] denies hitting head loc; Reason: Other:; Clinical Question(s): Trauma COMPARISON: 02/21/2016 FINDINGS: LINES AND TUBES: None. LUNGS AND PLEURA: No focal consolidation. Chronic scarring/atelectasis in the left mid to lower lung is stable from 2016. Normal pulmonary vascularity. No pleural effusion. No pneumothorax. HEART, MEDIASTINUM AND TUNDE: Heart is normal in size. Normal upper mediastinal and hilar contour. BONES AND SOFT TISSUES: Subtle cortical step-off noted along the anterior aspect of left fifth and sixth ribs, not seen on the prior radiograph are suspicious for acute rib fractures. Correlation with point tenderness recommended. Rotator cuff anchors noted in the left humeral head. IMPRESSION: No radiographic evidence of acute cardiopulmonary disease. Subtle cortical step off along the anterior aspect of left fifth and sixth ribs are suspicious for acute rib fractures. Correlation with point tenderness recommended. A [place] message has been communicated via the [employer] system on 12/10/2021 8:36 AM, Message ID [id number]. WSN: [id number] Ordering Physician: David Rowe Dictated By: Lyn Prado MD Dictated Date/Time: 12/10/21 8:36 am Reviewed By: Lyn Prado MD Signed By: Lyn Prado MD Signed Date/Time: 12/10/21 8:36 am Transcribed By: JAZMIN Transcribed Date/Time: 12/10/21 8:32 am Vital Signs Most recent to oldest [Reference Range]: 1 2 3 Height 170 cm (12/10/21 10:17 AM) 170 cm (12/10/21 7:23 AM) Weight 69.6 kg (12/10/21 10:17 AM) 69.6 kg (12/10/21 7:23 AM) Oxygen Saturation [94-100 %] 100 % (12/10/21 10:17 AM) 100 % (12/10/21 7:23 AM) 100 % (12/10/21 7:19 AM) Pulse Rate [55-90 bpm] 82 bpm (12/10/21 10:17 AM) 84 bpm (12/10/21 7:23 AM) 85 bpm (12/10/21 7:19 AM) Body Mass Index [18.5-24.99] 24.08 (12/10/21 10:17 AM) 24.08 (12/10/21 7:23 AM) Blood Pressure [90-138/55-84 mm Hg] 139/78mm Hg *H* (12/10/21 10:17 AM) Systolic Blood Pressure [90-138 mm Hg] 148 mm Hg *H* (12/10/21 7:23 AM) Respiratory Rate [16-30 br/min] 18 br/min (12/10/21 10:17 AM) 17 br/min (12/10/21 7:23 AM) Temperature [96.8-100.4 DegF] 97.8 DegF (12/10/21 10:17 AM) 97.7 DegF (12/10/21 7:23 AM) Mode of Delivery (Oxygen) Room air (12/10/21 10:17 AM) Room air (12/10/21 7:23 AM) Blood pressure sites Arm, right (12/10/21 10:17 AM) Arm, right (12/10/21 7:23 AM) Temperature Route Oral (12/10/21 10:17 AM) Oral (12/10/21 7:23 AM) Dry Weight 69.6 kg (12/10/21 10:17 AM) 69.6 kg (12/10/21 7:23 AM) Weight Obtained Via Standing scale (12/10/21 7:23 AM) Dry Weight Obtained Via Standing scale (12/10/21 7:23 AM) Social History Social History Type Response Smoking Status Former smoker; Tobac co user in household: No; Other: quit 1980s.; entered on: 03/01/18 Sex
--- OUTSIDE RECORDS SUMMARY | 2024-02-21 08:23 | XMS_ITS | Continuity of Care Document ---
Author Organization [facility] ter Address [address] [place] [address]- Care Team Providers Care Camera Operator Name Role Phone Jules WEATHERS MD, Rocco Chua Primary Care Physician En[place] [facility] Date(s): 04/16/22 - 04/16/[address] [address]- Discharge Disposition: A-D/C Home Attending Physician: Julien Wise MD Admitting Physician: Julien Wise MD Referring Physician: Monica GRAFF, Karli John Allergies, Adverse Reactions, Alerts No Known [...] 1 Refills, Maintenance, Route to Pharmacy Electronically, [id number], [facility]/pharmacy #[id number] Start Date: 05/16/18 Stop Date: 11/12/18 Status: Ordered Flomax 0.4 mg oral capsule 0.4 mg, 1, capsule, By Mouth, Daily, # 30 capsule, Refills 0, Tot. Refills 0, Maintenance, 02/21/1611:29:46, Route to Pharmacy Electronically, [id number], [facility] Start Date: 02/22/16 Status: Ordered furosemide 20 mg oral tablet 20 mg, 1, tablet, By Mouth, Daily, # 30 tablet, Refills 0, Tot. Refills 0, Maintenance, 08/25/16 10:56:37, Route to Pharmacy Electronically, [id number], [facility] Start Date: 08/25/16 Status: Ordered lisinopril 5 mg oral tablet 5 mg, 1, tablet, By Mouth, Daily, Pls keep follow up appt for more refills, # 90 tablet, Refills 1,Tot. Refills 1, Maintenance, 03/14/19 10:26:24 EDT, Route to Pharmacy Electronically, [id number], [facility] Start Date: 03/14/19 Stop Date: 09/10/19 Status: Ordered metoprolol 25 mg oral tablet 25 mg, 1, tablet, By Mouth, 2 times a day, # 60 tablet, Refills 0, Tot. Refills 0, Maintenance, 02/22/16 11:22:06, Route to Pharmacy Electronically, [id number], [facility] Start Date: 02/22/16 Status: Ordered [...] Range]: 1 2 3 Height 170 cm (04/16/22 7:14 AM) 170 cm (04/16/22 7:11 AM) Weight 71.8 kg (04/16/22 7:14 AM) 71.8 kg (04/16/22 7:11 AM) Oxygen Saturation [94-100 %] 99 % (04/16/22 4:00 PM) 97 % (04/16/22 3:30 PM) 99 % (04/16/22 3:00 PM) Pulse Rate [55-90 bpm] 63 bpm (04/16/22 7:14 AM) Body Mass Index [18.5-24.99] 24.84 (04/16/22 7:14 AM) Blood Pressure [90-138/55-84 mm Hg] 145/70mm Hg *H* (04/16/22 4:00 PM) 152/78mm Hg *H* (04/16/22 3:30 PM) 161/70mm Hg *H* (04/16/22 3:00 PM) Respiratory Rate [16-30 br/min] 16 br/min (04/16/22 4:00 PM) 14 br/min *L* (04/16/22 3:30 PM) 23 br/min (04/16/22 3:00 PM) Temperature [96.8-100.4 DegF] 97.3 DegF (04/16/22 12:00 PM) 97.1 DegF (04/16/22 7:14 AM) Mode of Delivery (Oxygen) Room air (04/16/22 4:00 PM) Room air (04/16/22 3:30 PM) Room air (04/16/22 3:00 PM) Blood pressure sites Arm, left (04/16/22 4:00 PM) Arm, left (04/16/22 3:30 PM) Arm, left (04/16/22 3:00 PM) Temperature Route Temporal (04/16/22 12:00 PM) Temporal (04/16/22 7:14 AM) Dry Weight 71.8 kg (04/16/22 7:11 AM) Weight Obtained Via Standing scale (04/16/22 7:11 AM) Dry Weight Obtained Via Standing scale (04/16/22 7:11 AM) Social History Social History Type Response Smoking Status Former smoker; Tobac co user in household: No; Other: quit 1980s.; entered on: 03/01/18 Sex
--- OUTSIDE RECORDS SUMMARY | 2024-02-21 08:23 | XMS_ITS | Continuity of Care Document ---
Author Organization [facility] Address [address] [place] [address]- Care Team Providers Care Embalmer Assistant Name Role Phone Jules WEATHERS MD, Rocco Chua Primary Care Physician [place] [facility] [place] 12/23/22 - 01/22/23 [facility] [address] [place] [address] Attending Physician: Edgar Zhu Admitting Physician: Admtr, Edgar Referring Physician: Admtr, Ar8 Allergies, Adverse Reactions, [...] 3 Refills, Maintenance, 01/21/23 10:31:00 EDT, Tablet, [facility]/pharmacy #[id number], Partial fill upon patient request if [...] Maintenance, 02/22/16 11:22:06, Route to Pharmacy Electronically, [id number], [facility]/pharmacy#2339 Start [...] 03/01/18 Sex Note * Event Display: Non Cardiovascular Results Authored Date: * Event Display: Cardiology Office Note, Non-BH Authored Date: * Event Display: Cardiology Office Note, Non-BH Authored Date: * Event Display: Non Cardiovascular Results Authored Date: * Event Display: Non Cardiovascular Results Authored Date: Patient Care team information Care Team Personnel Name: Rocco Vicente III, MD Position: [facility] Ambulatory (view) Member Role: PCP Address: Address: [address] [place] [address] Name: Yudi Marshall RN Position: [facility] RN Supv Member Role: Primary Care Nurse Name: Paul Gardner Position: [facility] Associate Professional Member Role: Lifetime Consulting Provider Address: Address: [address] [place] [address]- Name: Edwar Mckay MD Position: [facility] Renal MD Member Role: Lifetime Consulting Physician Address: Address: [address] [place] [address] [address] [facility] [place], [place] [address]- Name: Kathy Simon RN Position: [facility] RN Member Role: Primary Care Nurse Care Team Related Persons Name: ASHWIN VINSON Address: home [address] [place] [address] Name: MIGUEL JUAN Address: [place] [address] Name: SAME, DEFAULTED
--- OUTSIDE RECORDS SUMMARY | 2024-02-21 08:23 | XMS_ITS | Continuity of Care Document ---
Author Organization [facility] Address [address] [place] [address]- Care Team Providers Care Trustee Of Estate Name Role Phone Jules WEATHERS MD, Rocco Chua Primary Care Physician En[place] [facility] [place] Date(s): 12/16/23 - 01/15/24 [facility] [address] [place] [address] Attending Physician: AdmtrEdgar Admitting Physician: Admtr, Ar8 Referring Physician: Admtr, [...] Refills, Maintenance, 01/21/23 10:31:00 EDT, Tablet, [facility], Partial fill upon patient request if the [...] 11:29:46 EDT, Route to Pharmacy Electronically, [facility]/pharmacy #[id number] Start Date: 02/22/16 Status: Ordered metoprolol 25 mg oral tablet 25 mg, 1, tablet, By Mouth, 2 times a day, # 60 tablet, Refills 0, Tot. Refills 0, Maintenance, 02/22/16 11:22:06, Route to Pharmacy Electronically, [id number], [facility]/pharmacy#2339 Start Date: 02/22/16 Status: Ordered Norvasc 5 [...] Reference Physician Member Role: PCP Address: Address: [address] [place] [address] Name: Paul Gardner Position: [facility] Associate Professional Member Role: Lifetime Consulting Provider Address: Address: [address] [place] [address] Name: Edwar Mckay MD Position: [facility] Renal MD Member Role: Lifetime Consulting Physician Address: Address: [address] [place] [address] [address] [facility], [place], [place] [address] Name: Kathy Simon RN Position: [facility] RN Member Role: Primary Care Nurse Care Team Related Persons Name: ASHWIN VINSON Address: home [address] [place] [address] Name: MIGUEL JUAN Address: [place] [address] Name: SAME, DEFAULTED
--- OUTSIDE RECORDS SUMMARY | 2024-02-21 08:23 | XMS_ITS | Continuity of Care Document ---
Author Organization [facility] Carlos ashley Address [address] [place] [address]- Care Team Providers Care Roller Skate Assembler Name Role Phone Rocco Vicente III, MD Primary Care Physician [place] [facility] [place] Date(s): 06/04/22 - 07/04/22 [facility] [address] [place] [address]- Allergies, Adverse Reactions, Alerts No Known Allergies [...] 02/22/16 11:29:46 EDT, Route to Pharmacy Electronically, [facility]/pharmacy #[id number] Start Date: 02/22/16 [...] Maintenance, 02/22/16 11:22:06, Route to Pharmacy Electronically, [id number], [facility]/pharmacy#2339 Start Date: 02/22/16 Status: [...] Jules WEATHERS MD, Rocco Chua Address: [address] [place] [address]
[2024-02-21 09:02] VITALS: BP 134/64; PULSE 67; O2SAT 97; BMI 26.0
--- NOTE | 2024-02-21 09:02 | AM.OFFWIN_ITS ---
Intake Vital Signs 02/21/24 09:02 Height 5 ft 7 in Weight 166 lb BMI 26.0 BP 134/64 Blood Pressure Location Rt brachial Position Sitting Pulse 67 Pulse Source Pulse Oximeter Pulse Oximetry (%) 97 Oxygen Delivery Method Room Air Intake Visit Reasons: EP Lt leg bruise due to fall Intake Note: pt is here for left leg bruising and swelling due to fall in home Patient Tobacco Use Status: Former Tobacco user Allergies No Known Allergies Allergy (Verified 02/21/24 09:05) Do you need a note to return to daycare/school/sports/work: No HPI HPI Comments History of Present Illness Details 78-year-old male presents today with a h ematoma on his left lower extremity after walking into something at home. The patient has a past medical history DVT in his currently on Eliquis. He also has moderate calf pain and swelling with ecchymosis present. Denies shortness of breath chest pain PFSH Medical History Afib HTN (hypertension) Social History Patient Tobacco Use Status: Former Tobacco user Review of Systems Const All systems reviewed & are unremarkable except as noted in HPI and below Physical Exam Vital Signs: Last Vital Signs Pulse 67 02/21/24 09:02 BP 134/64 02/21/24 09:02 Pulse Ox 97 02/21/24 09:02 Oxygen Delivery Method Room Air 02/21/24 09:02 BMI result Body Mass Index 26.0 Const General: healthy appearing and no acute distress HEENT Head: Yes normal to inspection, Yes normocephalic and Yes atraumatic Ears: hearing grossly normal bilaterally General nose exam: Normal external nose present Resp Effort & Inspection: normal respiratory effort Auscultation: clear to auscultation bilaterally Cardio Rate: regular rate Rhythm: regular rhythm Extrem General: Yes calf tenderness Left lower extremity: lower leg (Hematoma present) Details: tenderness, localized swelling, non-pitting edema and ecchymosis Results Reviewed Results Reviewed: Ultrasound of his calf performed today was negative for DVT this was reviewed with the patient. It did show the hematoma present Assessment & Plan Assessment & Plan (1) Pain of left calf: Code(s): M79.662 - Pain in left lower leg Plan: The patient was referred to the wound clinic to help disperse the hematoma he has present in his lower extremity. It was also placed on antibiotics to prevent cellulitis. (2) Hematoma of left lower extremity: Code(s): S80.12XA - Contusion of left lower leg, initial encounter Plan: See plan Plan See plan Orders: Orders US venous duplex LE LT Today M79.662 - Pain in left lower leg Referrals Wound Care Referral S80.12XA - Contusion of left lower leg, initial encounter Medications: New cephalexin 500 mg PO BID 7 days 14 caps 0RF Coding Level of Care Code Est Pt Level 4 (59970) Diagnoses Pain of left calf M79.662 Hematoma of left lower extremity S80.12XA
== END 2024-02-21 09:53 | disposition home or self-care (01) ==
PROVIDERS: PCP Internal Medicine; Visit Provider Physician Assistant Medical
DX: M79.662 Pain in left lower leg (principal); S80.12XA Contusion of left lower leg, initial encounter
CPT/HCPCS: 99214

== ENCOUNTER 2024-02-21 09:28 | Outpatient (REF) | payer MEDICARE, SELFPAY ==
--- NOTE | ~2024-02-21 | US_ITS ---
EXAMINATION: US VENOUS ULTRASOUND WITH DOPPLER LOWER EXTREMITY, LEFT CLINICAL INFORMATION: Pain in left lower leg Recent trauma (status post fall) COMPARISON: Venous ultrasound of bilateral lower extremities 09/01/2022 TECHNIQUE: Ultrasound of the deep veins is performed from the hip to the calf with compression sonography and color and pulse Doppler assessment. Spectral analysis with color-flow imaging is performed. FINDINGS: There is normal venous compression and respiratory variation and augmented flow. The visualized common femoral vein, superficial femoral vein, profunda femoral vein, popliteal vein, and the posterior tibial and peroneal veins shows no evidence of deep venous thrombosis. The contralateral common femoral vein demonstrates normal respiratory variation. Ultrasound of the area of bruising in the left mid calf demonstrates a superficial hypoechoic lesion measuring 3.9 x 0.7 x 3.3 cm, nonvascular, likely represents a hematoma. US/US venous duplex LE LT IMPRESSION: 1. No DVT demonstrated in the left lower extremity. 2. Probable hematoma in the area of bruising in the left mid calf.
== END 2024-02-21 09:29 | disposition home or self-care (01) ==
LOC: HO.HMGCX 09:28
PROVIDERS: PCP Internal Medicine; Visit Provider Physician Assistant Medical
DX: M79.662 Pain in left lower leg (principal)
CPT/HCPCS: 93971

== ENCOUNTER 2024-03-05 08:03 | Outpatient (RCR) | payer MEDICARE, SELFPAY | END 2024-05-11 12:33 | disposition home or self-care (01) | LOC: HO.WCC 08:03 | PROVIDERS: PCP Internal Medicine; Visit Provider Physician Assistant | DX: L97.222 Non-pressure chronic ulcer of left calf with fat layer exposed (principal); S80.11XA Contusion of right lower leg, initial encounter; I10 Essential (primary) hypertension; I87.2 Venous insufficiency (chronic) (peripheral); I73.9 Peripheral vascular disease, unspecified; L53.9 Erythematous condition, unspecified; Z95.1 Presence of aortocoronary bypass graft; Z86.718 Personal history of other venous thrombosis and embolism; Z86.73 Personal history of transient ischemic attack (TIA), and cerebral infarction without residual deficits | CPT/HCPCS: 10140; 11042; 99212 ==

== ENCOUNTER 2025-02-18 10:45 | Outpatient (RCR) | payer MEDICARE, SELFPAY | END 2025-04-04 12:10 | disposition home or self-care (01) | LOC: HO.WCC 10:45 | PROVIDERS: PCP Internal Medicine; Visit Provider Surgery | DX: S81.011D Laceration without foreign body, right knee, subsequent encounter (principal) | CPT/HCPCS: 97597; 99212; 99213 ==

== ENCOUNTER 2025-06-24 14:17 | Emergency (ER) | payer MEDICARE, SELFPAY ==
--- OUTSIDE RECORDS SUMMARY | 2024-12-27 05:30 | XMS_ITS ---
Author Organization [facility] Address [address] [place] [address] Care Team Providers Care Ice Crusher Name Role Phone Candelario Vicente MD Primary Care Provider Sherrie Thompson [phone] REASON FOR VISIT Seen Sooner Encounters Encounter Location Date Provider Diagnosis [facility] [address] [place] [address] 12/27/2024 Sherrie Crystal Plan Of Treatment Next Appt Details Provider Name:Sherrie A Bonilla , 2025 09:00:00 AM, [address] [place], [address], Progress Notes * KEISHA DimapeaceDOB:1944 (79 yo M)Acc No.[id number]:12/27/2024 Progress Note Patient: Gonsalo MOORE Provider: Abril Crystal DPM :1945 A ge:79 Y S ex:Male Date:12/27/2024 Address:[address] [place] [address] Pcp:Candelario Vicente MD Subjective: * Chief Complaints: * 1 . Seen Sooner. * Medical History: Objective: * Vitals: Assessment: Plan: * Treatment: * Images: * The named appointment provid er may or may not be the originator of this progress note, and it is not deemed complete until electronically signed by the appointment provider. Sign off status: Pending * Provider: Abril Crystal DPPurnima Date: 0 12/27/2024 Generated for Yohannes rogel/Radha/Robe on: 0 06/24/2025 06:20 PM EDT
--- NOTE | ~2025-06-24 | XR_ITS ---
Exam: 2 view tibia fibula x-rays TECHNIQUE: AP and lateral view lower extremity, x-rays 3 a painful injury Prior: None FINDINGS: Extensive vascular arterial calcifications are present. Degenerative cystic changes are present in the medial ankle joint. No other bony abnormality is evident. XR/XR tibia fibula LT 2V Impression: Extensive arteriovascular calcifications. Chronic degenerative changes in the medial ankle joint. Electronically signed by: Jose A Barajas MD 06/24/2025 02:52 PM EDT
--- NOTE | 2025-06-24 14:18 | ED.GENADULT ---
HPI - General Adult General Chief complaint: Fall Stated complaint: tripped, blood thinners Time Seen by Provider: 06/24/25 15:16 Source: patient Mode of arrival: ambulatory Limitations: no limitations History of Present Illness ED Provider: Dr. Hilton HPI narrative: 79-year-old male history of AFib on Eliquis presents to ER today after lower extremity injury. Patient stated that he got his leg caught when he tried to make a turn. He sustained a skin tear over his left tibia. Related Data Home Medications ?Medication ?Instructions ?Recorded ?Confirmed allopurinol 100 mg tablet 200 mg PO BEDTIME 03/09/22 09/03/23 metoprolol tartrate 25 mg tablet 25 mg PO BID 03/09/22 09/03/23 tamsulosin 0.4 mg capsule 0.4 mg PO BEDTIME 03/09/22 09/03/23 furosemide 20 mg tablet 60 mg PO BID 04/18/23 04/18/23 amlodipine 5 mg tablet 5 mg PO DAILY 09/03/23 09/03/23 potassium chloride 20 mEq 20 meq PO DAILY 09/03/23 09/03/23 tablet,extended release(part/cryst) (Klor-Con M) torsemide 20 mg tablet 60 mg PO DAILY 09/03/23 09/03/23 atorvastatin 40 mg tablet 40 mg PO BEDTIME 02/21/24 ciclopirox 0.77 % topical cream 1 appl topical BID 02/21/24 ketoconazole 2 % topical cream appl topical BID PRN 02/21/24 oxycodone 5 mg tablet 5 mg PO Q4H PRN 02/21/24 Previous Rx's ?Medication ?Instructions ?Recorded apixaban 5 mg tablet (Eliquis) 5 mg PO BID #90 tabs 09/01/22 cephalexin 500 mg capsule 500 mg PO BID 7 days #14 caps 02/21/24 cephalexin 500 mg capsule 500 mg PO Q8H 7 days #21 caps 06/24/25 Allergies Allergy/AdvReac Type Severity Reaction Status Date / Time No Known Allergies Allergy Verified 06/24/25 14:20 Review of Systems Review of Systems: Pertinent review of systems as mentioned in HPI. All other system otherwise negative. [facility] Past Medical History [facility] Narrative: AFib on Eliquis Medical History Afib HTN (hypertension) Social History Social History Patient Tobacco Use Status: Former Tobacco user Smoked in Last 30 Days: No Use of substances other than those prescribed or required for medical reasons: No Advance Directives: Yes Advance Directives Information Provided: Yes Advance Directives on File: No Do you have a plan to hurt others: No Plan Physical Exam ED Exam Exam: General: Pleasant, no distress, interacting appropriately Head: Normacephalic, atraumatic ENT: oral mucosa moist, neck supple, no tracheal deviation, no C-spine tenderness Cardiovascular: regular rate, regular rhythm, no murmurs, rubbing, gallops, no chest wall tenderness Respiratory: CTAB, no wheeze, rales, rhonchi Gastrointestinal: Soft, non distended, non tender, non guarding Extremities: Patient has a large extensive skin tear of his left lower extremity, pulse range of motion is intact sensation is intact Neurological: Awake and alert, no facial droop noted Skin: Warm and dry Psychiatric: Appropriate mood and thoughts Vital Signs: Vital Signs - 24 hr 06/24/25 14:19 06/24/25 14:58 06/24/25 16:00 Temperature 97.7 F Pulse Rate 71 75 71 Respiratory Rate 16 18 16 Blood Pressure 162/71 H 133/52 L 133/46 L Pulse Oximetry 97 97 98 Oxygen Delivery Method Room Air Room Air Room Air 06/24/25 18:10 Temperature 97.4 F Pulse Rate 93 Respiratory Rate 16 Blood Pressure 170/71 H Pulse Oximetry 96 Oxygen Delivery Method Room Air BMI result Body Mass Index 25.1 Course Course Course Narrative: Rapid medical examination performed in triage by Rochelle Francisco PA-C. Patient is a 79 year old assigned male at presenting to the emergency department with a left lower leg injury. Patient states he tripped and tore his left lower leg - did not hit his head, no loss of consciousness, on eliquis. Detailed physical exam and review of systems are deferred to the assistant county attorney. Imaging ordered. Patient placed back in the waiting room pending room availability and results. Medications Administered Discontinued Medications Generic Name Dose Route Start Last Admin Trade Name Freq PRN Reason Stop Dose Admin Diphtheria/Tetanus/Acell Pertussis 0.5 ml 06/24/25 14:25 06/24/25 18:22 Diphth,Pertus(Acell),Tet Adult 0.5 Ml Syringe IM 06/24/25 14:26 Not Given .ONCE ONE Oxycodone HCl 2.5 mg 06/24/25 18:11 06/24/25 18:17 Oxycodone Hcl Immed Release 5 Mg Tablet PO 06/24/25 18:12 2.5 mg ONCE ONE Administration Medical Decision Making Medical Decision Making [facility] Narrative: 79-year-old male presented hospital today for evaluation of skin tear of his left tibia. He has history of AFib he is on Eliquis. I did evaluate the skin tear. It is very extensive in nature. X-rays negative for any signs of fracture. I irrigated the patient's wound extensively. Appears to be hemostatic on exam. Placed some Xeroform gauze over it and Ashutosh on top. Wrap dressing plain gauze. An Gabino bandage. Encouraged the patient to follow up with the Wound Clinic at this time. We will plan to start patient on prophylactic antibiotic Keflex. Patient will be discharged. I did offer pain medicine for the patient. However patient has kindly declined. Differential Diagnosis Differential Diagnoses: The differential diagnosis associated with the presentation includes Tibial fracture, open fracture, skin tear, laceration Independent Interpretation I performed an independent interpretation of an: Plain X-Ray Discharge Plan Discharge Clinical Impression: Laceration of leg Qualifiers: Encounter type: initial encounter Laterality: left Qualified Code(s): S81.812A - Laceration without foreign body, left lower leg, initial encounter Patient Disposition: Home, Self-Care Prescriptions: New cephalexin 500 mg capsule 500 mg PO Q8H 7 Days Qty: 21 0RF No Action Eliquis 5 mg tablet 5 mg PO BID Qty: 90 0RF Rx Instructions: Patient should take 10 mg p.o. b.i.d. x7 days for DVT then 5 mg b.i.d. until instructed by adapted physical education teacher amlodipine 5 mg tablet 5 mg PO DAILY potassium chloride [Klor-Con M20] 20 mEq tablet,ER particles/crystals 20 meq PO DAILY torsemide 20 mg tablet 60 mg PO DAILY allopurinol 100 mg tablet 200 mg PO BEDTIME tamsulosin 0.4 mg capsule 0.4 mg PO BEDTIME metoprolol tartrate 25 mg tablet 25 mg PO BID furosemide 20 mg tablet 60 mg PO BID ketoconazole 2 % cream topical BID PRN atorvastatin 40 mg tablet 40 mg PO BEDTIME ciclopirox 0.77 % cream 1 appl topical BID oxycodone 5 mg tablet 5 mg PO Q4H PRN cephalexin 500 mg capsule 500 mg PO BID 7 Days Qty: 14 0RF Print Language: Estonian
[2025-06-24 14:19] VITALS: BP 162/71; PULSE 71; RESP 16; TEMP 36.5; O2SAT 97; BMI 25.1
[2025-06-24 14:58] VITALS: BP 133/52; PULSE 75; RESP 18; O2SAT 97
[2025-06-24 16:00] VITALS: BP 133/46; PULSE 71; RESP 16; O2SAT 98
[2025-06-24 18:10] VITALS: BP 170/71; PULSE 93; RESP 16; TEMP 36.3; O2SAT 96
[2025-06-24] MEDS: oxyCODONE HCl Immed Release 5 MG TABLET 2.5 MG PO (18:17)
--- OUTSIDE RECORDS SUMMARY | 2025-06-24 18:20 | XMS_ITS | Patient Health Record ---
[facility] Address [address] [place] [address] Care Team Providers Care Layout Worker Name Role Phone Candelario Vicente MD Primary Care Provider Dewey CrystalSobeidae Unavailable [phone] Allergies No Known Allergies Reason For Referral No Information Medications Medication SIG (Take, Route, Frequency, Duration) Notes Start Date End Date Status Ciclopirox Olamine 0.77 % 1 application Externally Twice a day to skin of feet including between the toes; Duration: 30 days Active Torsemide Active Furosemide Not-Takin g amLODIPine Besylate Active Warfarin Sodium Not- Taking Atorvastatin Calcium Active Q12-Zwesxv PRN Not-Takin g Potassium Not-Taking Allopurinol 100 MG Orally twice daily Active Clotrimazole-Betametha sone 1-0.05 % APPLY TWICE DAILY TO AFFECTED AREA TWICE DAILY External; Duration: 10 Not-Taking Tamsulosin HCl Activ e Juni Aspirin Not-Ta roney Metoprolol Tartrate Active Lisinopril Not-Takin g Eliquis 5 MG 1 tablet Orally Twic e a day; Duration: 30 day(s) once a day Active Atorvastatin Calcium Not-Taking Compression Stockings 20-30mm Hg 1 pair wear daily; Duration: 30 days Active oxyCODONE HCl 5 MG TAKE 1 TABLET BY MOUTH EVERY 4 HOURS NEEDED Oral; Duration: 7 Days Active Colchicine Not-Takin g Immunizations Vaccine Route Administration Date Status Comme nts Influenza Unknown 06/17/2024 Administered COVID-19 Moderna Vaccine Unknown 12/24/2020 Administered Second Dose: 01/24/2021 Social History Tobacco Use: Social History Observation Description Date Details (start date - stop date) Never Smoker NA - NA Tobacco use other than smoking: Question Answer Notes Are you an other tobacco user? No Tobacco Control (Standard) Question Answer Notes Tobacco use: Nonsmoker Additional Findings: Tobacco non-user Current no nsmoker AUDIT-C (Standard) Question Answer Notes Did you have a drink contain ing alcohol in the past year? Yes How often did you have a dri nk containing alcohol in the past year? Monthly or less (1 point) How many drinks did you have on a typical day when you were drinking in the past year? 1 or 2 drinks (0 point) How often did you have six o r more drinks on one occasion in the past year? Never (0 point) Points 1 Interpretation Negative Problems Problem Type SNOMED Code ICD Code Onset Dates Problem Status W/U Status Risk Notes Problem Acquired hallux valgus (14314555) Hallux valgus (acquired), right foot (M20.11) Active confirmed Problem Atherosclerosis of artery of right lower limb (disorder) (9220380182) Unspecified atherosclerosis of [place] arteries of extremities, right leg (I70.201) Active confirmed Vital Signs Blood pressure diastolic 80 mm Hg 05/06/2025 Height 5 ft 7 in in 05/06/2025 Blood pressure systolic 124 mm Hg 05/06/2025 Weight 160 lbs 05/06/2025 BMI 25.06 kg/m2 05/06/2025 Procedures Procedure Date Ordered Date Performed Result Body Sit e 49602-QHRJJZL NAIL, 6 OR MORE 11/26/2024 N/A 41276-PIVL SKIN LESIONS, OVER 4 11/26/2024 N/A 86024- Debride <25 sq cm 12/05/2024 N/A 45069- Debride <25 sq cm 12/27/2024 N/A 64679-IGCURYI NAIL, 6 OR MORE 01/24/2025 N/A 27942-NOIA SKIN LESIONS, OVER 4 01/24/2025 N/A 83050-MSPGBOZ NAIL, 6 OR MORE 05/06/2025 N/A 45417-RWWP SKIN LESIONS, OVER 4 05/06/2025 N/A Encounters Encounter Location Date Provider Diagnosis [facility] [address] [place] [address] 11/26/2024 Sherrie Black Tinea unguium B35.1 ; Unspecified atherosclerosis of [place] arteries of extremities, right leg I70.201 ; Pain in right toe(s) M79.674 ; Pain in left toe(s) M79.675 ; Tinea pedis of both feet B35.3 ; Ulcer of right foot, limited to breakdown of skin L97.511 and Acute lower limb ischemia I99.[address] [address] 12/05/2024 Sherrie Black Ulcer of right foot, limited to breakdown of skin L97.511 ; Unspecified atherosclerosis of [place] arteries of extremities, right leg I70.201 and Acute lower limb ischemia I99.[address] [address] 12/27/2024 Sherrie Black Ulcer of right foot, limited to breakdown of skin L97.511 ; Unspecified atherosclerosis of [place] arteries of extremities, right leg I70.201 ; Acute lower limb ischemia I99.8 and Edema, lower extremity R60.[address] [address] 01/24/2025 Sherrie Black Tinea unguium B35.1 ; Pain in right toe(s) M79.674 ; Pain in left toe(s) M79.675 and Unspecified atherosclerosis of [place] arteries of extremities, right leg I70.[address] [address] 05/06/2025 Sherrie Black Tinea unguium B35.1 ; Pain in right toe(s) M79.674 ; Pain in left toe(s) M79.675 ; Unspecified atherosclerosis of [place] arteries of extremities, right leg I70.201 ; Pain in right foot M79.671 ; Pain in right ankle and joints of right foot M25.571 ; Bursitis of right foot M77.51 and Hallux valgus (acquired), right foot M20.[address] [address] 08/27/2024 Sherrie Black [address] [address] 11/26/2024 [facility] [address] [place] [address] 11/30/2024 Sherrie [facility] [place] [address] [place] [address] 02/15/2025 Sherrie [facility] [place] [address] [place] [address] 04/25/2025 Sherrie Crystal Tinea pedis of both feet B35.3 Assessments Encounter Date Diagnosis (ICD Code) Assessment Notes Treatment Notes Treatment Clinical Notes Section Notes 11/26/2024 Tinea unguium (ICD-10 - B35.1) 12/05/2024 Ulcer of right foot, limited to breakdown of skin (ICD-10 - L97.511) 12/27/2024 Ulcer of right foot, limited to breakdown of skin (ICD-10 - L97.511) 01/24/2025 Tinea unguium (ICD-10 - B35.1) 04/25/2025 Tinea pedis of both feet (ICD-10 - B35.3) 05/06/2025 Tinea unguium (ICD-10 - B35.1) 05/06/2025 Pain in right toe(s) (ICD-10 - M79.674) 01/24/2025 Pain in right toe(s) (ICD-10 - M79.674) 12/05/2024 Acute lower limb ischemia (ICD-10 - I99.8) 12/27/2024 Unspecified atherosclerosis of [place] arteries of extremities, right leg (ICD-10 - I70.201) 11/26/2024 Unspecified atherosclerosis of [place] arteries of extremities, right leg (ICD-10 - I70.201) 11/26/2024 Pain in right toe(s) (ICD-10 - M79.674) 12/05/2024 Unspecified atherosclerosis of [place] arteries of extremities, right leg (ICD-10 - I70.201) 12/27/2024 Acute lower limb ischemia (ICD-10 - I99.8) 11/26/2024 Pain in left toe(s) (ICD-10 - M79.675) 12/27/2024 Edema, lower extremity (ICD-10 - R60.0) 01/24/2025 Pain in left toe(s) (ICD-10 - M79.675) 05/06/2025 Pain in left toe(s) (ICD-10 - M79.675) 01/24/2025 Unspecified atherosclerosis of [place] arteries of extremities, right leg (ICD-10 - I70.201) 11/26/2024 Tinea pedis of both feet (ICD-10 - B35.3) 05/06/2025 Pain in right foot (ICD-10 - M79.671) 05/06/2025 Unspecified atherosclerosis of [place] arteries of extremities, right leg (ICD-10 - I70.201) 11/26/2024 Ulcer of right foot, limited to breakdown of skin (ICD-10 - L97.511) 05/06/2025 Pain in right ankle and joints of right foot (ICD-10 - M25.571) 11/26/2024 Acute lower limb ischemia (ICD-10 - I99.8) 05/06/2025 Bursitis of right foot (ICD-10 - M77.51) 05/06/2025 Hallux valgus (acquired), right foot (ICD-10 - M20.11) Plan Of Treatment Pending Test Test Name Order Date 52197-KXOCRHR NAIL, 6 OR MORE 05/23/2017 23031-UFNWLZL NAIL, 6 OR MORE 08/29/2017 23643-WNSSLSR NAIL, 6 OR MORE 12/01/2017 41838-KXJGIKS NAIL, 6 OR MORE 02/07/2017 67625-MVAWTLX NAIL, 6 OR MORE 03/02/2018 19849-LJUVSJK NAIL, 6 OR MORE 06/01/2018 17178-FKALTRW NAIL, 6 OR MORE 09/14/2018 09934-DHBOQMH NAIL, 6 OR MORE 12/14/2018 17557-NMASLOD NAIL, 6 OR MORE 03/15/2019 16713-OHAHHTP NAIL, 6 OR MORE 06/14/2019 59567-HZNYPOB NAIL, 6 OR MORE 11/08/2019 80199-VDQNMBX NAIL, 6 OR MORE 03/17/2020 36524-PHRGBRF NAIL, 6 OR MORE 06/19/2020 71126-TLPFFNQ NAIL, 6 OR MORE 09/22/2020 57229-DKIEMOE NAIL, 6 OR MORE 01/29/2021 94024-TJDULBH NAIL, 6 OR MORE 08/24/2021 43270-RHDHRSM NAIL, 6 OR MORE 01/28/2022 93527-IRJFEEG NAIL, 6 OR MORE 08/16/2022 17188-FFUTUCS NAIL, 6 OR MORE 11/22/2022 61286-GZANTCI NAIL, 6 OR MORE 02/28/2023 72806-MXCHGKU NAIL, 6 OR MORE 06/13/2023 65933-THYSFQK NAIL, 6 OR MORE 09/15/2023 60383-RGWNBSC NAIL, 6 OR MORE 12/22/2023 61085-JZKYKDZ NAIL, 6 OR MORE 05/03/2022 53683-EZXWSHO NAIL, 6 OR MORE 04/05/2024 15823-SYZJTNP NAIL, 6 OR MORE 11/26/2024 59570-BMHMIOT NAIL, 6 OR MORE 01/24/2025 76848-MINCHIO NAIL, 6 OR MORE 05/06/2025 55067- Debride <25 sq cm 12/05/2024 80061- Debride <25 sq cm 12/27/2024 72219-VQPC SKIN LESIONS, OVER 4 01/25/20 25 22428-ELGY SKIN LESIONS, OVER 4 11/26/19 25 49624-YBVJ SKIN LESIONS, OVER 4 08/16/20 22 49134-CDUI SKIN LESIONS, OVER 4 05/06/20 25 34224-JRTB SKIN LESIONS, OVER 4 11/22/19 23 34766-EINL SKIN LESIONS, OVER 4 02/29/20 23 48610-VNWB SKIN LESIONS, OVER 4 05/03/20 22 38837-UMLA SKIN LESIONS, 2 TO 4 04/05/20 24 51059-NKWQ SKIN LESIONS, 2 TO 4 06/14/20 19 36747-LSKL SKIN LESIONS, 2 TO 4 03/15/20 19 66616-PXBB SKIN LESIONS, 2 TO 4 12/14/19 19 08955-VQXL SKIN LESIONS, 2 TO 4 09/14/20 18 38070-QVFW SKIN LESIONS, 2 TO 4 06/01/20 18 46111-SPHR SKIN LESIONS, 2 TO 4 05/23/20 17 05897-XDHZ SKIN LESIONS, 2 TO 4 12/01/19 18 31047-CJGI SKIN LESIONS, 2 TO 4 03/02/20 18 82929-JQRM SKIN LESION 01/28/2022 49251-LEDT SKIN LESION 08/24/2021 Next Appt Details Provider Name:Sherrie Crystal , 2025 09:00:00 AM, [address] [facility], [place], [address], Insurance Providers Payer Name Payer Address Payer Phone Subscriber Number Group Number Insured Name Patient Relationship to Insured Coverage Start Date Coverage End Date Medicare [facility] [employer] [address] [place] [phone] [id number] Gonsalo Lorenz Self - patient is the insured A[employer] Secondary to Medicare [address] [place] [address] [id number] Gonsalo Lorenz Self - patient is the insured Medical (General) History Medical History History ICD Code Arthritis Back,Hip,and Knee pain CAD (Cholesterol) Gout Heart disease High blood pressure Kidney disease Liver disease Poor circulation Stroke Measles Mumps Chicken pox Joint implants/screws Primary osteoarthritis, 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, right ankle and foot M19.071 Varicose veins of right leg with edema I 83.891 Unspecified atherosclerosis of [place] arteries of extremities, bilateral legs I70.203 Intermittent claudication due to atheros clerosis of artery of extremity I70.219 Neuropathy G62.9 Ulcer of right foot, limited to breakdow n of skin L97.511 Surgical History Surgery Date(Month/Year) Rotator Cuff Surgery 2006 Stent put in neck 10/2016 cataract surgery 09/05 Heart Surgery 05/07 Stent Surgery 2022 Veins in leg worked on 05/10 Hospitalization History Reason Date(Month/Year) [facility]- CHF, pneumonia 10/09 [facility] wound care- devi wound 04/02/24 [facility] Stent 07/14/2017
--- OUTSIDE RECORDS SUMMARY | 2025-06-24 18:20 | XMS_ITS | Clinical Summary ---
Author Organization [facility] Facility Address [address] [address] Care Team Providers Care Roving Technician Name Role Phone Rocco Vicente MD Primary Care Provider [phone] Allergies No known active allergies Medications allopurinol (ZYLOPRIM) 100 MG tablet Active atorvastatin (LIPITOR) 10 MG tablet Active cyanocobalamin (VITAMIN B-12) 100 MCG tablet 1,000 mcg 05/19/2016 Acti ve potassium chloride (KLOR-CON) 20 MEQ packet Take 40 mEq by mouth 05/20/2022 Active clotrimazole-be tamethasone (LOTRISONE) cream APPLY TWICE DAILY TO AFFECTED AREA TWICE DAILY Active ciclopirox (LOPROX) 0.77 % cream 2 (two) times a day 01/06/2017 Active amLODIPine (NORVASC) 5 MG tablet Take 1 tablet by mouth 1 (one) time each day 05/20/2022 Active atorvastatin (LIPITOR) 40 MG tablet Take 40 mg by mouth 1 (one) time each day 08/04/2022 Active Aspirin 81 MG capsule Take by mouth Active metoprolol tartrate 25 MG tablet Take 1 tablet by mouth in the morning and 1 tablet in the evening. 06/25/2022 Active potassium chloride 40 MEQ/15ML (20%) solution Take 40 mEq by mouth 1 (one) time each day 900 mL 11 08/31/2022 Active Active Problems Problem Noted Date Diagnosed Date Aortic valve stenosis 08/18/2022 Atherosclerosis of hughes arteries of the extrem ities 08/18/2022 Atrial fibrillation 08/18/2022 Hyperlipidemia 08/18/2022 Hypertension 08/18/2022 Neuropathy 08/18/2022 Peripheral arterial occlusive disease 08/18/2022 Localized, primary osteoarthritis of the ankle a nd/or foot 08/18/2022 Varicose veins of lower limb co-occurrent with e jessica 08/18/2022 Acute nontraumatic kidney injury 08/18/2022 Family History Medical History Relation Comments Hypertension Father Cancer Mother Relation Status Comments Father Mother Social History Tobacco Use Types Packs/Day Years Used Date Smoking Tobacco: Former Cigarettes Smokeless Tobacco: Former Tobacco Cessation:Counseling Given: Not Answered Alcohol Use Standard Drinks/Week Comments Not Currently 0 (1 standard drink = 0.6 oz pur e alcohol) Sex and Gender Information Value Date Recorded Sex Assigned at Not on file Legal Sex Male 4:52 PM EST Gender Identity Not on file Sexual Orientation Not on file Last Filed Vital Signs Vital Sign Reading Time Taken Comments Blood Pressure 142/68 08/18/2022 10:34 AM EDT Pulse 74 08/18/2022 10:34 AM EDT Temperature - - Respiratory Rate - - Oxygen Saturation 98% 08/18/2022 10:34 AM EDT Inhaled Oxygen Concentration - - Weight 73.7 kg (162 lb 6.4 oz) 08/18/2022 10:34 AM EDT Height - - Body Mass Index - - Plan of Treatment Health Maintenance Due Date Last Done Comments Pneumococcal Vaccine: 50+ Years (2 of 2 - PCV) 07/26/2015 07/26/2014 Influenza Vaccine (#1) 2025 2, 07/25/2020, 07/27/2019, Additional history exists Pneumococcal Vaccine: Peds (0 to 5 Years) and At-Risk Patients (6 to 49 Years) Discontinued 07/26/2014 Hepatitis B Vaccine Aged Out No longe r eligible based on patient's age to complete this topic Insurance Medicare [facility] Medicare [facility] Care Teams Roving Technician Relationship Specialty Start Date End Date Rocco Vicente MD PCP - General Internal Medicine 08/18/22
--- OUTSIDE RECORDS SUMMARY | 2025-06-24 18:21 | XMS_ITS | Clinical Summary ---
Author Organization [facility] Address [address] [place] [address] Care Team Providers Care Medical Instrument Technician Name Role Phone Rocco Vicente MD Primary Care Provider [phone] Allergies No known active allergies Medications Medication Sig Dispensed Refills Start Date End Date Status apixaban (ELIQUIS) 5 MG TABS tablet Take by mouth daily. 0 Active tamsulosin (FLOMAX) 0.4 MG CAPS Take 1 capsule (0.4 mg total) by mouth daily. 0 Active potassium chloride ER (K-DUR,KLOR-CON) tablet 20 mEq Take 1 tablet (20 mEq total) by mouth daily. 0 Active torsemide (DEMADEX) 20 MG tablet Take 1 tablet (20 mg total) by mouth daily. 0 Active oxyCODONE (ROXICODONE) 5 MG immediate release tablet Take 1 tablet (5 mg total) by mouth every 4 (four) hours as needed for pain. 0 Active amLODIPine (NORVASC) tablet 5 mg Take 1 tablet (5 mg total) by mouth daily. 0 Active allopurinol (ZYLOPRIM) 100 MG tablet Take 1 tablet (100 mg total) by mouth 2 (two) times a day. 0 Active metoprolol tartrate (LOPRESSOR) 25 MG tablet Take by mouth 2 (two) times a day. 0 Active Active Problems No known active problems Family History Medical History Relation Name Comments Ovarian cancer Sister Relation Name Status Comments Father Mother Sister Social History Tobacco Use Types Packs/Day Years Used Date Smoking Tobacco: Former Cigarettes Smokeless Tobacco: Never Tobacco Cessation:Counseling Given: Not Answered Comments:Quit at age 41. Alcohol Use Standard Drinks/Week Comments Not Currently 0 (1 standard drink = 0.6 oz pur e alcohol) Sex and Gender Information Value Date Recorded Sex Assigned at Not on file Gender Identity Not on file Sexual Orientation Not on file Job Start Date Occupation Industry Not on file Not on file Not on file Last Filed Vital Signs Vital Sign Reading Time Taken Comments Blood Pressure 161/54 06/25/2024 11:16 AM EDT Pulse 35 06/25/2024 11:16 AM EDT Temperature 36.6 C (97.8 F) 06/25/2024 11:16 AM EDT Respiratory Rate - - Oxygen Saturation 100% 06/25/2024 11:16 AM EDT Inhaled Oxygen Concentration - - Weight 74.5 kg (164 lb 3.2 oz) 06/25/2024 11:16 AM EDT Height 170.2 cm (5' 7 ) 06/25/2024 11:16 AM EDT Body Mass Index 25.72 06/25/2024 11:16 AM EDT Plan of Treatment Health Maintenance Due Date Last Done Comments Hepatitis C Screening 1945 COVID-19 Vaccine (#1) 01/16/1947 Depression Screening 1958 Preventative Health Evaluation 1964 Shingrix-Zoster Vaccine (1 of 2) 1996 Fall Risk Assessment 2011 Pneumococcal Vaccine (2 of 2 - PCV) 07/26/2015 07/26/2014 RSV Adult > 60+ Yrs or (1 - 1-dose 75+ series) 2021 Influenza Vaccine (#1) 2025 2, 07/25/2020, 07/27/2019, Additional history exists DTap / Tdap / Td (3 - Td or Tdap) 11/16/2026 11/16/2016, 05/06/2011 Hepatitis B Vaccines Aged Out No long er eligible based on patient's age to complete this topic RSV Ped < 20 months Aged Out No longe r eligible based on patient's age to complete this topic Care Teams Medical Instrument Technician Relationship Specialty Start Date End Date Rocco Vicente MD PCP - General Internal Medicine 05/23/24
--- OUTSIDE RECORDS SUMMARY | 2025-06-24 18:21 | XMS_ITS | Clinical Summary ---
Author Organization [facility] Address [address] [place] [address] Care Team Providers Care Fine Unhairer Name Role Phone Unknown Primary Care Provider [phone] Allergies No known active allergies Active Problems Problem Noted Date Diagnosed Date Hypertensive urgency 09/04/2023 Preoperative clearance 09/04/2023 Cholecystitis 09/03/2023 Social History Tobacco Use Types Packs/Day Years Used Date Smoking Tobacco: Never Assessed Sex and Gender Information Value Date Recorded Sex Assigned at Male 09/03/2023 7:27 PM EST Legal Sex Male 6:25 PM EST Gender Identity Male 09/03/2023 7:27 PM EST Sexual Orientation Heterosexual (straight) 09/03 7:27 PM EST Last Filed Vital Signs Vital Sign Reading Time Taken Comments Blood Pressure 163/81 09/04/2023 11:38 AM EST Pulse 74 09/04/2023 11:38 AM EST Temperature 36.4 C (97.6 F) 09/04/2023 11:38 AM EST Respiratory Rate 18 09/04/2023 11:38 AM EST Oxygen Saturation 100% 09/04/2023 11:38 AM EST Inhaled Oxygen Concentration - - Weight 72.6 kg (160 lb) 09/04/2023 5:58 AM EST Height 170.2 cm (5' 7 ) 09/04/2023 5:58 AM EST Body Mass Index 25.06 09/04/2023 5:58 AM EST Plan of Treatment Health Maintenance Due Date Last Done Comments Advance Care Planning 1945 Hepatitis C Virus Screening 1945 DTaP/Tdap/Td Vaccines (1 - Tdap) 1965 Pneumococcal Vaccines 50+ (1 of 1 - PCV) 1996 Zoster (Shingles) Vaccine (1 of 2) 1996 RSV Vaccine 60 years and older and Patients (1 - 1-dose 75+ series) 2021 Influenza Vaccine 05/17/2025 07/26/2014, 07/25/2013 COVID-19 Vaccine ( - 2024-2 6 season) 2025 08/19/2021, 01/24/2021, 12/27/2020 Hepatitis B Vaccines Aged Out No long er eligible based on patient's age to complete this topic Insurance MEDICARE PART A & B [facility] Advance Directives * Full Code (Latest Code Status on File) Date Activated Date Inactivated Comments 09/04/2023 1:57 AM Care Teams Fine Unhairer Relationship Specialty Start Date End Date Unknown Unknow Provider Address PCP - General 09/03/23
--- OUTSIDE RECORDS SUMMARY | 2025-06-24 18:21 | XMS_ITS ---
Author Name [facility] Organization Unknown Problems Problem Status Onset Date Problem Type Date of Resoluti on Source Hypertensive urgency active 2023-09-04 ProblemAct [facility] Cholecystitis active 2023-09-03 ProblemAct [facility] T Encounters Encounter Type Encounter Reason Primary Diagnosis Location Date Inpatient Cholecystitis, unspecified Cholecystitis, unspecified [facility] 09/03/2023 Care Team Organization Name Specialty Phone Email Start Date End Da te [facility] 11/06/2023 [facility] 11/06/2023 [facility] 09/04/2023 01/02/2025
--- OUTSIDE RECORDS SUMMARY | 2025-06-24 18:21 | XMS_ITS | Clinical Summary ---
Author Organization [address] Address [address] [place] [id number] Phone Care Team Providers Care Supervisor Capacitor Processing Name Role Phone Rocco Vicente MD Primary Care Provider [phone] Allergies No known active allergies Medications spironolactone (ALDACTONE) 25 mg tablet TAKE 1 TABLET BY MOUTH 1 TIME EACH DAY. 90 tablet 5 Active apixaban (ELIQUIS) 5 mg tablet Take 1 tablet (5 mg total) by mouth 2 (two) times a day. 180 tablet 5 Active tamsulosin (FLOMAX) 0.4 mg 24 hr capsule TAKE 1 CAPSULE BY MOUTH DAILY. TAKE 30 MINS AFTER SAME MEAL EVERY DAY. 90 capsule 5 Active torsemide (DEMADEX) 20 mg tablet Take 2 tablets (40 mg total) by mouth 2 (two) times a day. 180 tablet 5 Active metoprolol tartrate (LOPRESSOR) 25 mg tablet Take 1 tablet (25 mg total) by mouth 2 (two) times a day. 180 tablet 1 5 Active atorvastatin (LIPITOR) 40 mg tablet Take 1 tablet (40 mg total) by mouth at bedtime. 90 tablet 1 5 Active amLODIPine (NORVASC) 5 mg tablet Take 1 tablet (5 mg total) by mouth 1 (one) time each day. 90 tablet 1 5 Active allopurinoL (ZYLOPRIM) 100 mg tablet Take 2 tablets (200 mg total) by mouth 1 (one) time each day. 180 tablet 1 5 Active metoprolol tartrate (LOPRESSOR) 25 mg tablet Take 1 tablet (25 mg total) by mouth 2 (two) times a day. 180 tablet 1 5 06/13/20 25 Discontinu ed(Reorder ) allopurinoL (ZYLOPRIM) 100 mg tablet Take 2 tablets (200 mg total) by mouth 1 (one) time each day. 180 tablet 1 5 06/13/20 25 Discontinu ed(Reorder ) amLODIPine (NORVASC) 5 mg tablet Take 1 tablet (5 mg total) by mouth 1 (one) time each day. 90 tablet 1 5 06/13/20 25 Discontinu ed(Reorder ) atorvastatin (LIPITOR) 40 mg tablet Take 1 tablet (40 mg total) by mouth at bedtime. 90 tablet 5 06/13/20 25 Discontinu ed(Reorder ) Active Problems Problem Noted Date Diagnosed Date Prediabetes 12/18/2024 DDD (degenerative disc disease), cervical 2018 Spinal stenosis of lumbar re gion with neurogenic claudication 07/27/2019 Left groin pain 06/21/2019 Carotid stenosis 10/31/2014 Overview (08/30/2024): S/p LICA stenting 07/02 CKD (chronic kidney disease) 12/18/2013 Overview (08/30/2024): GFR 54 on 09/02/13. ETOH abuse 03/27/2012 Encounters Date Type Department Care Team Description 06/13/2025 10:00 AM EDT Office Visit Adult Medicine [address] [phone] Antelmo Duke PA Hypertension, unspecified type (Primary Dx); Atrial fibrillation, unspecified type (CMS/HCC V24, CMS/HCC V28); S/P CABG x 2; Gout, unspecified cause, unspecified chronicity, unspecified site; Coronary artery disease, unspecified vessel or lesion type, unspecified whether angina present, unspecified whether wilton or transplanted heart 05/09/2025 9:30 AM EDT Office Visit Adult [address] [phone] Antelmo Duke PA Hypertension, unspecified type (Primary Dx); Atrial fibrillation, unspecified type (CMS/HCC V24, [facility]/HCC V28); S/P CABG x 2; Gout, unspecified cause, unspecified chronicity, unspecified site; Benign prostatic hyperplasia, unspecified whether lower urinary tract symptoms present; Prediabetes; Coronary artery disease, unspecified vessel or lesion type, unspecified whether angina present, unspecified whether wilton or transplanted heart from Last 3 Months Immunizations Name Administration Dates Next Due Influenza trivalent, 0.5mL ( Fluzone High-dose) 65yo and older 07/28/2022,07/25/2020,07/27/2019,07/10,07/21/2017,05/28/2016,06/30/2015 Influenza trivalent, with pr eservative (Fluzone; Afluria) 6mo and older 07/26/2014,07/25/2013 Influenza, Unspecified 05/28/2016 Moderna SARS-CoV-2 COVID-19, mRNA, LNP-S, preservative free 12/26/2020 Pneumococcal polysaccharide 23 valent (Pneumovax 23) 2yo and older 07/26/2014 Tdap Tetanus diptheria acell ular pertussis (Boostrix; Adacel) 7yo and older 11/16/2016 Surgical History Surgery Date Site/Laterality Comments CAROTID STENT PROCEDURE:CAROTID STENT CORONARY ARTERY BYPASS GRAFT PROCEDURE:CORONARY ARTERY BYPASS GRAFT COLONOSCOPY 2012 PROCEDURE: MA COLONOSCOPY FLX DX W/COLLJ SPEC WHEN PFRMD; COMMENT: normal SHOULDER SURGERY Right PROCEDURE: HISTORICAL SHOULDER SURGERY OTHER SURGICAL HISTORY PROCEDURE: MA DSTL REVSC&INTERVAL LIG UXTR HEMO ACCESS; COMMENT: 2011 and 2016 right distal femoral stenting and arthrectomy ROTATOR CUFF REPAIR Left PROCEDURE: HISTORICAL ROTATOR CUFF REPAIR OTHER SURGICAL HISTORY Right PROCEDURE: HISTORY OTHER; COMMENT: CAROTID STENT Medical History Medical History Date Comments TIA (transient ischemic attack) DX:TIA (transient ischemic attack) Hypertension 03/27/2012 DX:Hypertension Carotid stenosis 10/31/2014 DX:Carotid sten osis; COMMENT: Dr. Hoang Hyperlipidemia 03/27/2012 DX:Hyperlipidemi a Moderate aortic stenosis 03/24/2017 DX:Mode rate aortic stenosis; COMMENT: TTE from 03/2017, follows with cardiology Moderate mitral stenosis 03/24/2017 DX:Mode rate mitral stenosis; COMMENT: On TTE 03/2017 follows with cardiology Pulmonary hypertension ([facility]/ [facility] V24, [facility] V28) 03/24/2017 DX:Pulmonary hypertension (H CC) Chronic arthritis 03/31/2017 DX:Chronic art hritis; COMMENT: Right shoulder cuff tear, left shoulder cuff tear BPH (benign prostatic hyperplasia) 04/11/2017 DX:BPH (benign prostatic hyperplasia); COMMENT: Follows with urology Centrilobular emphysema ([facility] V24, [facility] V28) 06/30/2017 DX:Centrilobular emphysema ( [facility]); COMMENT: PFT 06/2017 Chronic lower back pain 03/31/2017 DX:Chron ic lower back pain; COMMENT: S/p facet series by Dr. Alarcon at [facility], follows with [facility], no operative care indicated, MRI 2013 DJD L4-L5 and L5-S1 ETOH abuse 03/27/2012 DX:ETOH abuse; C OMMENT: Decreased use in December 2016 Atrial fibrillation ([facility] V24, [facility] V28) 07/25/2013 DX:Atrial fibrillation ([facility]) ; COMMENT: On anticoagulation Peripheral arterial disease ([facility] V24) 03/27/2012 DX:Peripheral arterial disea se ([facility]); COMMENT: S/p right distal SFA stenting 2011, repeat peripheral angiography 06/2017 showed limiting stenosis, s/p re-stenting 06/2017 with artherectomy History of TIA (transient is chemic attack) 03/28/2018 DX:History of TIA (transient ischemic attack); COMMENT: 04/01 Lumbar stenosis 06/14/2019 DX:Lumbar stenos is; COMMENT: S/p MRI 05/2019 Gout, chronic, without tophus 11/14/2019 DX :Gout, chronic, without tophus Family History Medical History Relation Name Comments Arthritis Father Heart attack Father Arthritis Mother Breast cancer Mother Ovarian cancer Sister 1 Blindness Neg Hx Cataracts Neg Hx Glaucoma Neg Hx Macular degeneration Neg Hx Strabismus Neg Hx Relation Name Status Comments Brother 1 Alive Brother 2 Alive Brother 3 Alive Father (Age 72) mi Mother (Age 78) breast can cer, pneumonia Sister 1 Sister 2 Alive Sister 3 Alive Social History Tobacco Use Types Packs/Day Years Used Date Smoking Tobacco: Former Cigarettes 0.5 10 0 10/17/1960 - 10/17/1970 Smokeless Tobacco: Former Tobacco Cessation:Counseling Given: Not Answered Alcohol Use Standard Drinks/Week Comments Yes 20 (1 standard drink = 0.6 oz pu re alcohol) Sex and Gender Information Value Date Recorded Sex Assigned at Male 09/21/2024 1:37 PM EST Legal Sex Male 3:03 PM EST Gender Identity Male 09/21/2024 1:37 PM EST Sexual Orientation Choose not to disclose 2023 1:37 PM EST Obstetrics History Last Filed Vital Signs Vital Sign Reading Time Taken Comments Blood Pressure 134/62 06/13/2025 10:27 AM EDT Pulse 60 06/13/2025 10:11 AM EDT Temperature 36.1 C (96.9 F) 06/13/2025 10:11 AM EDT Respiratory Rate 14 10/01/2024 10:33 AM EST Oxygen Saturation 96% 06/13/2025 10:11 AM EDT Inhaled Oxygen Concentration - - Weight 75.4 kg (166 lb 3.2 oz) 06/13/2025 10:11 AM EDT Height 170.2 cm (5' 7.01 ) 06/13/2025 10:11 AM E DT Body Mass Index 26.02 06/13/2025 10:11 AM EDT Plan of Treatment Upcoming Encounters Date Type Department Care Team (Late st Contact Info) Description 11/13/2025 11:00 AM EST Office Visit Adult Medicine [address] [phone] Rocco Vicente MD [address] [place] [address] Health Maintenance Due Date Last Done Comments Hepatitis A Vaccines (1 of 2 - Risk 2-dose series) 1964 Zoster Vaccines (1 of 2) 1964 Pneumococcal Vaccine: 50+ Years (2 of 2 - PCV) 07/26/2015 07/26/2014 RSV Immunization Adult Patients (1 - 1-dose 75+ series) 2021 Falls Risk Assessment 09/25/2022 Social Influencers of Health Screening 09/25/2022 Medicare Annual Wellness Visit 08/29/2024 08/29/2023 Depression Screening 10/17/2024 COVID-19 Vaccine (5 - Moderna risk season) 2025 06/14/2024, 08/19/2021, 01/24/2021, Additional history exists Influenza Vaccine (#1) 2025 , 07/28/2022, 07/25/2020, Additional history exists Hypertension/CHF/CAD Annual BMP Blood Test 05/09/2026 05/09/2025, 12/05/2024, 11/09/2024, Additional history exists DTaP,Tdap,and Td Vaccines (3 - Td or Tdap) 11/16/2026 11/16/2016, 05/06/2011 Cholesterol Screening (Lipid Panel) 05/09/2030 05/09/2025, 11/09/2024, 05/11/2024, Additional history exists Hepatitis C Screening Completed 04/07/2018 HIB Vaccines Aged Out No longer eligi ble based on patient's age to complete this topic HPV Vaccines Aged Out No longer eligi ble based on patient's age to complete this topic Hepatitis B Vaccines Aged Out No long er eligible based on patient's age to complete this topic IPV Vaccines Aged Out No longer eligi ble based on patient's age to complete this topic MMR Vaccines Aged Out No longer eligi ble based on patient's age to complete this topic Meningococcal ACWY Vaccine Aged Out N o longer eligible based on patient's age to complete this topic Meningococcal B Vaccine Aged Out No l onger eligible based on patient's age to complete this topic RSV Immunization Patients Under 20 months Aged Out No longer eligible based on patient's age to complete this topic Varicella Vaccines Aged Out No longer eligible based on patient's age to complete this topic Procedures Procedure Name Priority Date/Time Associated Diagnosis Comments BASIC METABOLIC PANEL Routine 05/09/2025 10:15 AM EDT Hypertension, unspecified type Prediabetes HEMOGLOBIN A1C Routine 05/09/2025 10:15 AM EDT Prediabetes LIPID PANEL WITH REFLEX TO DIRECT LDL Routine 05/09/2025 10:15 AM EDT Coronary artery disease, unspecified vessel or lesion type, unspecified whether angina present, unspecified whether wilton or transplanted heart HEPATITIS C SCREENING Routine 04/07/2018 from Last 3 Months or Most Recently Relevant to Health Maintenance Results * Lipid panel with reflex to direct LDL (05/09/2025 10:15 AM EDT) [facility] Signature Cholesterol 125 0 - 200 mg/dL LAB CHEMISTRY METHOD 05/09/2025 12:47 PM EDT [facility] Triglycerides 45 0 - 150 mg/dL LAB CHEMISTRY METHOD 05/09/2025 12:47 PM EDT [facility] HDL 75 >=40 mg/dL LAB CHEMISTRY METHOD 05/09/2025 12:47 PM EDT [facility] LDL Calculated 41 0 - 100 mg/dL LAB CHEMISTRY METHOD 05/09/2025 12:47 PM EDT [facility] VLDL Cholesterol Estiven 9 mg/dL LAB CHEMISTRY METHOD 05/09/2025 12:47 PM EDT [facility] Non HDL Chol. (LDL+VLDL) 50 <145 mg/dL LAB CHEMISTRY METHOD 05/09/2025 12:47 PM EDT [facility] Chol/HDL Ratio 1.7 0.0 - 4.4 LAB CHEMISTRY METHOD 05/09/2025 12:47 PM EDT [facility] Blood Venous blood specimen / Unknown Venipuncture / Unknown 05/09/2025 10:15 AM EDT 05/09/2025 10:15 AM EDT Antelmo KATE LAB BLOOD ORDERABLES Fi nal Result [facility] [address] [place] [address], * Hemoglobin A1c (05/09/2025 10:15 AM EDT) Pathologist [facility] Hemoglobin A1C 5.8 <6.5 % LAB CHEMISTRY METHOD 05/09/2025 1:33 PM T [facility] Mean Bld Glu Estim. 120 mg/dL LAB CHEMISTRY METHOD 05/09/2025 1:33 PM T [facility] Blood Venous blood specimen / Unknown Venipuncture / Unknown 05/09/2025 10:15 AM EDT 05/09/2025 10:15 AM EDT Antelmo KATE LAB BLOOD ORDERABLES Fi nal Result [facility] [address] [place] [address], * Basic metabolic panel (05/09/2025 10:15 AM EDT) [facility] Sodium 140 133 - 145 mmol/L LAB CHEMISTRY METHOD 05/09/2025 12:47 PM [facility] Potassium 3.9 3.5 - 5.5 mmol/L LAB CHEMISTRY METHOD 05/09/2025 12:47 PM [facility] Chloride 103 96 - 110 mmol/L LAB CHEMISTRY METHOD 05/09/2025 12:47 PM [facility] CO2 30 21 - 32 mmol/L LAB CHEMISTRY METHOD 05/09/2025 12:47 PM [facility] Anion Gap 7 3 - 11 LAB CHEMISTRY METHOD 05/09/2025 12:47 PM [facility] Glucose 93 70 - 100 mg/dL LAB CHEMISTRY METHOD 05/09/2025 12:47 PM [facility] BUN 24 5 - 25 mg/dL LAB CHEMISTRY METHOD 05/09/2025 12:47 PM [facility] Creatinine 1.16 0.70 - 1.30 mg/dL LAB CHEMISTRY METHOD 05/09/2025 12:47 PM EDT [facility] eGFR 64 >=60 mL/min/1. 73m2 LAB CHEMISTRY METHOD 05/09/2025 12:47 PM EDT [facility] Comment:Calculation based on the Chronic Kidney Disease Epidemiology Collaboration (CKD-EPI) equation refit without adjustment for race. BUN/Creatinine Ratio 20.7 LAB CHEMISTRY METHOD 05/09/2025 12:47 PM EDT [facility] Calcium 9.3 8.5 - 10.5 mg/dL LAB CHEMISTRY METHOD 05/09/2025 12:47 PM EDT [facility] Blood Venous blood specimen / Unknown Venipuncture / Unknown 05/09/2025 10:15 AM EDT 05/09/2025 10:15 AM EDT Antelmo KATE LAB BLOOD ORDERABLES Fi nal Result [facility] [address] [place] [address], * Hepatitis C Screening (04/07/2018) [facility] [place] Hepatitis C Screening abstracted Historical Provider HEALTH MAINTENANCE Final Result from Last 3 Months or Most Recently Relevant to Health Maintenance Insurance MEDICARE [employer] Care Teams Supervisor Capacitor Processing Relationship Specialty Start Date End Date Rocco Vicente MD [address] [place] [phone] PCP - General Internal Medicine 09/21/24
--- OUTSIDE RECORDS SUMMARY | 2025-06-24 18:21 | XMS_ITS | Patient Health Record ---
Author Organization [facility] Address [address] [place] [address] Care Team Providers Care Sap Basis Architect Name Role Phone Leonard LOU, Lilly Primary Care Provider Unavail able Reason For Referral No Information Medications Medication SIG (Take, Route, Frequency, Duration) Notes Start Date End Date Status Furosemide 20 MG 1 tablet Orally Once a day Active Aspir-81 81 MG Orally Once a day Active Cyanocobalamin 500 MCG 2 tablets Orally Once a day Active Tamsulosin HCl 0.4 MG 1 capsule Orally O nce a day Active Atorvastatin Calcium 40 MG 1 tablet Oral ly 3 times daily Active Metoprolol-HCTZ ER 25-12.5 MG 1 tablet Orally twice a day Active Warfarin Sodium 2.5 MG 1 tablet Orally 1 or 2 a day Active Social History Tobacco Use: Social History Observation Description Date Details (start date - stop date) Former Smoker NA - NA Tobacco Use/Smoking Question Answer Notes Are you a former smoker How long has it been since you last smoked? > 10 years Plan Of Treatment No Information Insurance Providers Payer Name Payer Address Payer Phone Subscriber Number Group Number Insured Name Patient Relationship to Insured Coverage Start Date Coverage End Date [place] [address] [place] [phone] [id number] CIRO VALDES Self - patient is the insured [employer] al [address] [place] [address] [id number] CIRO VALDES Self - patient is the insured Medical (General) History Medical History History ICD Code hypertension high cholesterol arrhythmia arthritis stroke (TIA) kidney problems Surgical History Surgery Date(Month/Year) stent in right leg stent in neck rotator cuff left shoulder Hospitalization History Reason Date(Month/Year) TIA
[2025-06-24 18:51] VITALS: BP 170/71; PULSE 93; RESP 16; TEMP 36.3; O2SAT 96
--- NOTE | 2025-06-24 18:51 | PC.NURSE ---
Wound care provided by the provider. To f/u in the wound clinic
== END 2025-06-24 18:53 | disposition home or self-care (01) ==
PROVIDERS: Emergency Provider Student in an Organized Health Care Education/Training Program; PCP Internal Medicine
DX: S81.812A Laceration without foreign body, left lower leg, initial encounter (principal); W01.0XXA Fall on same level from slipping, tripping and stumbling without subsequent striking against object, initial encounter; Y93.9 Activity, unspecified; Y92.9 Unspecified place or not applicable; Y99.9 Unspecified external cause status; M79.662 Pain in left lower leg; I10 Essential (primary) hypertension; I48.91 Unspecified atrial fibrillation; Z79.01 Long term (current) use of anticoagulants; Z79.899 Other long term (current) drug therapy
CPT/HCPCS: 73590; 90715; 99283; 99284

== ENCOUNTER → 2025-06-24 14:25 | Outpatient (BNV) | payer MEDICARE, SELFPAY | PROVIDERS: PCP Internal Medicine; Visit Provider Radiology Diagnostic Radiology | DX: M79.605 Pain in left leg (principal) | CPT/HCPCS: 73590 ==

== ENCOUNTER 2025-09-03 09:09 | Outpatient (AMB) | payer MEDICARE, SELFPAY ==
--- NOTE | 2025-09-03 09:12 | A.PHYSOV_ITS ---
Vital Signs 09/03/25 09:19 Height 5 ft 7 in Weight 160 lb BMI 25.1 Intake Visit Reasons: 3M FUV Intake Note: Patient is a 80 year old male in office today for his 3 month narcotic contract appointment [place] Required: No Allergies No Known Allergies Allergy (Verified 09/03/25 09:12) HPI Comments Details: History of Present Illness The patient is a 80-year-old male presenting with chronic lower back pain. The pain has been persistent for years and has been managed with various interventions including physical therapy, chiropractic treatments, acupuncture, and an L4-L5 epidural injection, which provided only temporary relief. The pain is exacerbated by standing and walking and is relieved by sitting, with the patient reporting a positive shopping cart sign. The patient also experiences leg pain with prolonged standing and walking, for which he uses Percocet sporadically as needed for severe pain. Recently, the patient had a fall at home, resulting in a significant skin injury on his left leg, which required hospitalization for seven days and subsequent surgical intervention. The patient reports that his skin is very fragile, a condition exacerbated by the use of blood thinners. He has been receiving care from wound clinic at [facility]. He required minor surgical procedure performed at [facility]. Records were reviewed today. Pain Description - Onset: Chronic, present for years - Quality: Exacerbated by standing and walking, relieved by sitting - Location: Lower back, with associated leg pain - Exacerbating factors: Standing, walking - Relieving factors: Sitting Results [facility] Medical History (Updated 09/03/25 @ 09:42 by Grant Pepe DO) Spinal stenosis, lumbar region with neurogenic claudication Chronic lumbar radiculopathy Chronic pain syndrome Low back pain Afib HTN (hypertension) Surgical History (Updated 09/02/25 @ 10:47 by Nati Pierce MA) History of shoulder surgery (Unknown) History of heart bypass surgery (Unknown) Social History (Updated 09/02/25 @ 10:48 by Nati Pierce MA) Patient Tobacco Use Status: Former Tobacco user Substance Use Type: Marijuana Current occupational status: retired Review of Systems Narrative Review of Systems - Musculoskeletal: Reports chronic lower back pain, leg pain with prolonged standing and walking - Integumentary: Reports skin fragility Denies change in bowel bladder habits, denies fever or chills, no cognitive changes are reported. Physical Exam Exam Exam: Physical Exam Patient appears to be in no acute distress, appropriately conversant oriented. He was able to get up and ambulate independently without antalgia. Gait was slightly unstable. Left lower extremity was wrapped. Lumbar range of motion was restricted in extension. Neurological examination was nonfocal, muscle stretch reflexes were uniformly diminished, but symmetric. Dural tension signs were negative. Patient demonstrated no upper motor neuron signs. Vital Signs: BMI result Body Mass Index 25.1 Assessment & Plan Assessment & Plan (1) Low back pain: Code(s): M54.50 - Low back pain, unspecified Category: Medical (2) Chronic pain syndrome: Code(s): G89.4 - Chronic pain syndrome Category: Medical (3) Chronic lumbar radiculopathy: Code(s): M54.16 - Radiculopathy, lumbar region Category: Medical (4) Spinal stenosis, lumbar region with neurogenic claudication: Code(s): M48.062 - Spinal stenosis, lumbar region with neurogenic claudication Category: Medical Plan Pain Management - Affect: No specific impact on mood or psychological wellbeing discussed - Analgesia: Uses Percocet sporadically for severe pain - Adverse Effects: No specific adverse effects from pain medications discussed - Activities of Daily Living: Pain interferes with standing and walking - Aberrant Drug Related Behaviors: No aberrant behaviors reported - Current pain level and goals not explicitly discussed Plan Patient was informed and verbally consented to the use of an ambient scribe for clinic note documentation during this visit. 1. Chronic Lower Back Pain The patient continues to experience chronic lower back pain, which has been managed with various interventions including physical therapy, chiropractic treatments, acupuncture, and an L4-L5 epidural injection. The pain is exacerbated by standing and walking and is relieved by sitting, with the patient reporting a positive shopping cart sign. Current management includes sporadic use of Percocet for severe pain. His prescription monitoring report was reviewed. He is up-to-date on his medication. I do not suggest any change in medication management. 2. Leg Pain With Prolonged Standing And Walking The patient reports leg pain associated with prolonged standing and walking, which is managed with sporadic use of Percocet for severe pain. 3. Skin Fragility The patient has a history of skin fragility, exacerbated by the use of blood thinners, which led to a significant skin injury requiring hospitalization and surgical intervention. Discussion Notes Patient Instructions Coding Level of Care Code Est Pt Level 3 (56132) Complex EM visit Add On G2211 Diagnoses Low back pain M54.50 Chronic pain syndrome G89.4 Chronic lumbar radiculopathy M54.16 Spinal stenosis, lumbar region with neurogenic claudication M48.062
[2025-09-03 09:19] VITALS: BMI 25.1
== END 2025-09-03 09:43 | disposition home or self-care (01) ==
LOC: HO.HPHYS 09:09
PROVIDERS: PCP Internal Medicine; Visit Provider Physical Medicine & Rehabilitation
DX: M54.50 Low back pain, unspecified (principal); G89.4 Chronic pain syndrome; M54.16 Radiculopathy, lumbar region; M48.062 Spinal stenosis, lumbar region with neurogenic claudication
CPT/HCPCS: 99213; G2211

== ENCOUNTER → 2025-09-03 09:09 | Outpatient (BNVA) | payer MEDICARE, SELFPAY | PROVIDERS: PCP Internal Medicine; Visit Provider Physical Medicine & Rehabilitation | DX: M54.50 Low back pain, unspecified (principal); G89.4 Chronic pain syndrome; M54.16 Radiculopathy, lumbar region; M48.062 Spinal stenosis, lumbar region with neurogenic claudication | CPT/HCPCS: 99212 ==